=== PATIENT | male | born 1955 | race African-American/Black ===

== ENCOUNTER 2016-08-18 11:31 | Emergency (ER) | payer OTHER ==
[2016-08-18] MEDS ORDERED: amLODIPine TAB* 5 MG PO ONE (12:04)
[2016-08-18] MEDS ORDERED: Meclizine TAB* 12.5 MG PO ONE (12:04)
[2016-08-18] MEDS ORDERED: NS 0.9% 1000 ML* 1,000 ML IV ONE (12:05)
[2016-08-18 12:14] LABS: Hematocrit 49 % (42-52); Hemoglobin 16.2 g/dl (14.0-18.0); Mean Corpuscular HGB Conc 33 g/dl (31-36); Mean Corpuscular Hemoglobin 30 pg (27-31); Mean Corpuscular Volume 91 fL (80-94); Mean Platelet Volume 8 um3 (7.4-10.4); Red Blood Count 5.41 10^6/ul (4.0-5.4); Red Cell Distribution Width 15 % (10.5-15); White Blood Count 7.4 10^3/ul (3.5-10.8)
[2016-08-18 12:28] LABS: Albumin 4.2 g/dL (3.2-5.2); BUN/Creatinine Ratio 13.6 (8-20); Calcium 9.5 mg/dL (8.6-10.3); EGFR African American 123.8 (>60); EGFR Non-African American 96.2 (>60); Magnesium 2.2 mg/dL (1.9-2.7); Potassium 3.7 mmol/L (3.5-5.0); Total Bilirubin 1.7 mg/dL (0.2-1.0); Total Protein 7.2 g/dL (6.4-8.9)
[2016-08-18 12:29] LABS: Troponin I 0.01 ng/mL (<0.04)
[2016-08-18] MEDS ORDERED: Morphine INJ* 4 MG/ML 1 ML CARPUJECT IV ONE (12:29)
--- NOTE | 2016-08-18 12:30 | RAD ---
HISTORY: Headache, hypertension COMPARISONS: July 11, 2016 TECHNIQUE: Multiple contiguous axial CT scans were obtained of the head without intravenous contrast. FINDINGS: HEMORRHAGE/INFARCT: There is no hemorrhage or acute infarct. MASSES/SHIFT: There is no mass or shift. EXTRA-AXIAL SPACES: There are no extra-axial fluid collections. SULCI AND VENTRICLES: The sulci and ventricles are normal in size and position for the patient's stated age. CEREBRUM: There are no focal parenchymal abnormalities. BRAINSTEM: There are no focal parenchymal abnormalities. CEREBELLUM: There are no focal parenchymal abnormalities. VESSELS: The vertebrobasilar system is tortuous. PARANASAL SINUSES: The paranasal sinuses are clear. ORBITS: The orbits are unremarkable. BONES AND SOFT TISSUE: No bone or soft tissue abnormalities are noted. OTHER: None IMPRESSION: NO ACUTE INTRACRANIAL PATHOLOGY.
[2016-08-18] MEDS ORDERED: Metoclopramide IV* 5 MG/ML 2 ML VIAL IV ONE (12:31)
--- NOTE | 2016-08-18 12:38 | ED ---
Blu Wiggins Karl, scribed for Caro Ni MD on 08/18/16 at 1154 . Dizziness - HPI Summary HPI Summary: Pt is a 61 y/o male the presents to the ED c/o dizziness that began yesterday. Pt reported that he suddenly became dizzy yesterday and has experienced nausea and vomiting with his dizziness as well. Pt stated that lying down aggravates his symptoms and sitting up alleviates them slightly. Pt reports that he woke up yesterday and vomited. Pt has vomited 3 times since with the most recent episode being this morning between 09:00 and 10:00. Pt stated that it took him 5 min to get out of bed this morning because he was so dizzy and described his dizziness as the room spinning and it is worsened when he is lying down. No change when closes eyes. Pt also reported a VEE located in the frontal area of his head. No vision changes. No fever, chills, rash. Pt stated that he has not been eating or drinking very well and that he drank a significant amount of alcohol on 2 days ago. Pt is on medication for HTN but he did not take his medication today as he can't find it since recent move. Pt is not on any anticoagulants and denied a hx of [place] or stroke. Pt is prescribed oxycodone for pain but has not taken his medication recently since his move. Pt denies CP, SOB, ear ache, sinus pain, abd pain. Pt with a h/o vertigo. Hx: HTN, multiple back surgeries No h/o CAD, CVA. - History Of Current Complaint Chief Complaint: EDDizziness Stated Complaint: DIZZINESS Time Seen by Provider: 08/18/16 11:49 Hx Obtained From: Patient Onset/Duration: Suddenly Timing: Days - 1 Severity Initially: Mild Severity Currently: Mild Character: Room Spinning Aggravating Factor(s): Other - lying down Alleviating Factor(s): Other - sitting up Associated Signs And Symptoms: Positive: Nausea, Vomiting, Change In Medication. Negative: Chest Pain, SOB - Risk Factors Cardiac Risk Factors: Negative CVA Risk Factor: Negative - Allergies/Home Medications Allergies/Adverse Reactions: Allergies Allergy/AdvReac Type Severity Reaction Status Date / Time No Known Allergies Allergy Verified 06/02/16 18:20 PMH/Surg Hx/FS Hx/Imm Hx Endocrine/Hematology History: Denies: Hx Anticoagulant Therapy, Hx Diabetes, Hx Anemia, Hx Unexplained Bleeding Cardiovascular History: Reports: Hx Angina, Hx Hypertension - ON MEDS Denies: Hx Aneurysm, Hx Angioplasty, Hx Auto Implanted Cardiovert Defib, Hx Cardiac Arrest, Hx Cardiomegaly, Hx Congenital Heart Disease, Hx Congestive Heart Failure, Hx Coronary Artery Disease, Hx Deep Vein Thrombosis, Hx Myocardial Infarction, Hx Pacemaker/ICD, Hx Peripheral Vascular Disease, Hx Rheumatic Fever, Hx Syncope, Hx Valvular Heart Disease, Other Cardiovascular Problems/Disorders History: Denies: Hx Renal Disease Musculoskeletal History: Reports: Hx Back Problems - back surgeries x2 Denies: Hx Arthritis, Hx Bursitis, Hx Congenital Bone Abnormalities, Hx Fibromyalgia, Hx Gout, Hx Orthopedic Injury, Hx Osteoporosis, Hx Scoliosis, Hx Tendonitis, Other Musculoskeletal History Sensory History: Reports: Hx Contacts or Glasses - glasses Denies: Hx Cataracts, Hx Eye Injury, Hx Eye Prosthesis, Hx Glaucoma, Hx Legally Blind, Hx Macular Degeneration, Hx Vision Problem, Hx Deafness, Hx Hearing Aid, Other Sensory Impairments Opthamlomology History: Reports: Hx Contacts or Glasses - glasses Denies: Hx Cataracts, Hx Eye Injury, Hx Eye Prosthesis, Hx Glaucoma, Hx Legally Blind, Hx Macular Degeneration, Hx Vision Problem, Other Sensory Impairments Neurological History: Reports: Hx Headaches, Other Neuro Impairments/Disorders - PAIN CLINIC PATIENT Denies: Hx Dementia, Hx Developmental Delay, Hx Migraine, Hx Nerve Disease, Hx Seizures, Hx Spinal Cord Injury, Hx Transient Ischemic Attacks (TIA) Psychiatric History: Denies: Hx Panic Disorder - Surgical History Surgery Procedure, Year, and Place: 2006, 2014 BACK SURGERY; Hx Anesthesia Reactions: No - Immunization History Date of Tetanus Vaccine: Unk Date of Influenza Vaccine: 2016 Infectious Disease History: No Infectious Disease History: Denies: Traveled Outside the [place] in Last 30 Days - Family History Known Family History: Positive: Cardiac Disease - [place] , Hypertension, Diabetes - Social History Occupation: Employed Full-time - [employer] Alcohol Use: Occasionally Hx Substance Use: No Substance Use Type: Reports: None Hx Tobacco Use: Yes Smoking Status (MU): Former Smoker Type: Cigarettes Have You Smoked in the Last Year: No Review of Systems Constitutional: Negative Negative: Fever, Chills Eyes: Negative ENT: Negative Negative: Sore Throat, Ear Ache, Other - sinus pain Cardiovascular: Negative Negative: Chest Pain Respiratory: Negative Negative: Shortness Of Breath, Cough Positive: Vomiting, Nausea. Negative: Abdominal Pain Genitourinary: Negative Musculoskeletal: Negative Negative: Arthralgia Skin: Negative Negative: Rash Neurological: Other - dizziness Positive: Headache. Negative: Weakness, Numbness, Slurred Speech Psychological: Normal Negative: Anxious, Depressed All Other Systems Reviewed And Are Negative: Yes Physical Exam Triage Information Reviewed: Yes Vital Signs On Initial Exam: Initial Vitals Temp Pulse Resp BP Pulse Ox 98.4 F 72 18 172/112 98 08/18/16 11:40 08/18/16 11:40 08/18/16 11:40 08/18/16 11:40 08/18/16 11:40 Vital Signs Reviewed: Yes Appearance: Positive: Well-Appearing, Well-Nourished, Pain Distress - mild discomfort Skin: Positive: Warm, Skin Color Reflects Adequate Perfusion, Dry Head/Face: Positive: Normal Head/Face Inspection Eyes: Positive: Normal, EOMI, AIDA, Conjunctiva Clear, Other: - AIDA, EOM intact and full Pt with horizontal nytagmus extinguishing 4-5 beats to left. Negative: Conjunctiva Inflammed, Discharge ENT: Positive: Normal ENT inspection, TMs normal. Negative: Pharynx normal, Nasal congestion, Nasal drainage, TM dull, TM red Neck: Positive: Supple, Nontender, No Lymphadenopathy Respiratory/Lung Sounds: Positive: Clear to Auscultation, Breath Sounds Present. Negative: Wheezes Cardiovascular: Positive: Normal, RRR. Negative: Murmur Abdomen Description: Positive: Nontender, No Organomegaly, Soft Bowel Sounds: Positive: Present Musculoskeletal: Positive: Normal, Strength/ROM Intact Neurological: Positive: Normal, Sensory/Motor Intact, Alert, Oriented to Person Place, Time, CN Intact II-III, Normal Gait, Heel to Toe, Finger to Nose. Negative: Ataxic Gait Psychiatric: Positive: Normal AVPU Assessment: Alert - [place] Coma Scale Best Eye Response: 4 - Spontaneous Best Motor Response: 6 - Obeys Commands Best Verbal Response: 5 - Oriented Diagnostics - Vital Signs Vital Signs Temp Pulse Resp BP Pulse Ox 08/18/16 11:40 98.4 F 72 18 172/112 98 - Laboratory Lab Results: Lab Results 08/18/16 08/18/16 Range/Units 12:00 12:00 WBC 7.4 (3.5-10.8) 10^3/ul RBC 5.41 H (4.0-5.4) 10^6/ul Hgb 16.2 (14.0-18.0) g/dl Hct 49 (42-52) % MCV 91 (80-94) fL MCH 30 (27-31) pg MCHC 33 (31-36) g/dl RDW 15 (10.5-15) % Plt Count 211 (150-450) 10^3/ul MPV 8 (7.4-10.4) um3 Neut % (Auto) 74.9 (38-83) % Lymph % (Auto) 15.7 L (25-47) % [place] % (Auto) 8.4 (1-9) % Eos % (Auto) 0.4 (0-6) % Baso % (Auto) 0.6 (0-2) % Absolute Neuts (auto) 5.6 (1.5-7.7) 10^3/ul Absolute Lymphs (auto) 1.2 (1.0-4.8) 10^3/ul Absolute Monos (auto) 0.6 (0-0.8) 10^3/ul Absolute Eos (auto) 0 (0-0.6) 10^3/ul Absolute Basos (auto) 0 (0-0.2) 10^3/ul Absolute Nucleated RBC 0 10^3/ul Nucleated RBC % 0.1 Sodium 134 (133-145) mmol/L Potassium 3.7 (3.5-5.0) mmol/L Chloride 101 (101-111) mmol/L Carbon Dioxide 27 (22-32) mmol/L Anion Gap 6 (2-11) mmol/L BUN 11 (6-24) mg/dL Creatinine 0.81 (0.67-1.17) mg/dL Est GFR ( Amer) 123.8 (>60) Est GFR (Non-Af Amer) 96.2 (>60) BUN/Creatinine Ratio 13.6 (8-20) Glucose 102 H (70-100) mg/dL Calcium 9.5 (8.6-10.3) mg/dL Magnesium 2.2 (1.9-2.7) mg/dL Total Bilirubin 1.70 H (0.2-1.0) mg/dL AST 26 (13-39) U/L ALT 27 (7-52) U/L Alkaline Phosphatase 49 (34-104) U/L Total Creatine Kinase 234 H (10-223) U/L Troponin I 0.01 (<0.04) ng/mL Total Protein 7.2 (6.4-8.9) g/dL Albumin 4.2 (3.2-5.2) g/dL Globulin 3.0 (2-4) g/dL Albumin/Globulin Ratio 1.4 (1-3) TSH Pending Result Diagrams: 08/18/16 12:00 08/18/16 12:00 Lab Statement: Any lab studies that have been ordered have been reviewed, and results considered in the medical decision making process. - CT CT Brain CT Interpretation Completed By: Radiologist - IMPRESSION: NO ACUTE INTRACRANIAL PATHOLOGY. <Electronically signed by Blake Chau MD in [place]> 08/18/16 1227 - EKG 11:43 EKG Interpretation: NSR at 66 bpm, No acute ST changes Re-Evaluation - Re-Evaluation First Eval Re-Evaluation Time: 12:50 Change: Improved Comment: Pt states feels slight improvement. No further nausea. Pt with less photophobia. BP remains elevated - pt give Morphine - will continue to monitor. May give labetolol if continues to be elevated Second Eval Re-Evaluation Time: 13:43 Change: Improved - Pt states feels better - no nausea, no VEE, no dizziness. BP improved 152/[address] and labs with pt. Will gove po and ambulate. Will give Rx for Norvasc and Meclzine. Pt to contact PCP for other meds prescriptions and Dr. Guadarrama for pain meds. Pt states agreement and understanding of plan Dizzy Course/Dx - Course Assessment/Plan: Pt presents with complaints of headache, dizziness, nausea after not taking med x 2 days. Pt denies fevers, chills. Pt with nystagmus on exam. Pt with mild htn. Will give home BP meds, meclzine, IVF. Will check labs , CT head and reassess. May give morphine as pt may have component of narcotic withdrawal. - Diagnoses Provider Diagnoses: Vertigo, Hypertension, Non compliance w medication regimen Discharge - Discharge Plan Condition: Improved Disposition: HOME Patient Education Materials: Hypertension (ED), Vertigo (ED) Additional Instructions: - It is VERY important you take your medications as previously prescribed. A prescription for Norvasc and Meclizine has been sent to your pharmacy - Stay well hydrated -avoid excess caffeine and alcohol - Eat regular, healthy meals - eat a low salt diet - Slowly change positions - lying to sitting, sitting to standing - Contact your primary doctor and your pain management doctors for your other prescriptions. The documentation as recorded by the Blu mack Karl accurately reflects the service I personally performed and the decisions made by me, Caro Ni MD.
[2016-08-18] MEDS ORDERED: NS 0.9% 1000 ML* 2,000 ML IV ONE (12:49)
[2016-08-18 13:07] LABS: TSH (Thyroid Stimulating Horm) 0.4 mcIU/mL (0.34-5.60)
[2016-08-18 13:19] VITALS: BP 159/96
[2016-08-18 14:18] LABS: Urine Bacteria Absent (Absent); Urine Bilirubin Negative (Negative); Urine Glucose Negative (Negative); Urine Nitrite Negative (Negative)
== END 2016-08-18 14:23 | disposition home or self-care (01) ==
LOC: ED 11:31
DX: R42 Dizziness and giddiness (principal); I10 Essential (primary) hypertension; Z91.19 Patient's noncompliance with other medical treatment and regimen; Z87.891 Personal history of nicotine dependence
CPT/HCPCS: 36415; 70450; 80053; 81003; 81015; 82550; 83735; 84443; 84484; 85025; 93005; 96361; 96365; 96366; 96374; 99283; A9270-GY; J2270; J2765

== ENCOUNTER 2016-09-29 07:20 | Emergency (ER) | payer OTHER ==
--- NOTE | 2016-09-29 08:17 | ED ---
Lower Extremity - HPI Summary HPI Summary: Pt here w/ acute Lt knee pain and swelling. Started last night - no preceding factors (ie. no trauma/injury, no kneeling, no twisting, no prolonged sitting, standing, etc). Worse w/ flexion - better w/ rest. Area over medial knee has reduced sensation and this continues down into legs. Denies calf pain, swelling , fever, foot swelling, chest pain, SOB. No previous h/o Lt knee injury. Admits to "water" on his Rt knee in the past. He reports a history of back pain and has radicular sx into this Lt leg. He's scheduled to have an EMG in about 1 month. No exacerbation of his back sx. Occasionally takes ibuprofen for his aches and pains but nothing routinely. Ambulating well with a cane at this time but does not use steps as they are too difficulty to navigate. - History of Current Complaint Chief Complaint: EDExtremityLower Stated Complaint: LT KNEE PAIN/NUMB Time Seen by Provider: 09/29/16 07:46 Hx Obtained From: Patient Pain Intensity: 7 - Allergies/Home Medications Allergies/Adverse Reactions: Allergies Allergy/AdvReac Type Severity Reaction Status Date / Time No Known Allergies Allergy Verified 09/29/16 07:22 PMH/Surg Hx/FS Hx/Imm Hx Previously Healthy: Yes Endocrine/Hematology History: Denies: Hx Anticoagulant Therapy, Hx Diabetes, Hx Anemia, Hx Unexplained Bleeding Cardiovascular History: Reports: Hx Angina, Hx Hypertension - ON MEDS Denies: Hx Aneurysm, Hx Angioplasty, Hx Auto Implanted Cardiovert Defib, Hx Cardiac Arrest, Hx Cardiomegaly, Hx Congenital Heart Disease, Hx Congestive Heart Failure, Hx Coronary Artery Disease, Hx Deep Vein Thrombosis, Hx Myocardial Infarction, Hx Pacemaker/ICD, Hx Peripheral Vascular Disease, Hx Rheumatic Fever, Hx Syncope, Hx Valvular Heart Disease, Other Cardiovascular Problems/Disorders History: Denies: Hx Renal Disease Musculoskeletal History: Reports: Hx Back Problems - back surgeries x2 Denies: Hx Arthritis, Hx Bursitis, Hx Congenital Bone Abnormalities, Hx Fibromyalgia, Hx Gout, Hx Orthopedic Injury, Hx Osteoporosis, Hx Scoliosis, Hx Tendonitis, Other Musculoskeletal History Sensory History: Reports: Hx Contacts or Glasses - glasses Denies: Hx Cataracts, Hx Eye Injury, Hx Eye Prosthesis, Hx Glaucoma, Hx Legally Blind, Hx Macular Degeneration, Hx Vision Problem, Hx Deafness, Hx Hearing Aid, Other Sensory Impairments Opthamlomology History: Reports: Hx Contacts or Glasses - glasses Denies: Hx Cataracts, Hx Eye Injury, Hx Eye Prosthesis, Hx Glaucoma, Hx Legally Blind, Hx Macular Degeneration, Hx Vision Problem, Other Sensory Impairments Neurological History: Reports: Hx Headaches, Other Neuro Impairments/Disorders - PAIN CLINIC PATIENT Denies: Hx Dementia, Hx Developmental Delay, Hx Migraine, Hx Nerve Disease, Hx Seizures, Hx Spinal Cord Injury, Hx Transient Ischemic Attacks (TIA) Psychiatric History: Denies: Hx Panic Disorder - Surgical History Surgery Procedure, Year, and Place: 2006, 2014 BACK SURGERY; Hx Anesthesia Reactions: No - Immunization History Date of Tetanus Vaccine: Unk Date of Influenza Vaccine: 2015 Infectious Disease History: No Infectious Disease History: Denies: Traveled Outside the [place] in Last 30 Days - Family History Known Family History: Positive: Cardiac Disease - [place] , Hypertension, Diabetes, Other - CVA - Social History Occupation: Employed Full-time - [employer]: With Family Alcohol Use: Rare Hx Substance Use: No Substance Use Type: Reports: None Hx Tobacco Use: Yes Smoking Status (MU): Former Smoker Type: Cigarettes Have You Smoked in the Last Year: No Review of Systems Negative: Fever, Chills, Fatigue Negative: Chest Pain Negative: Shortness Of Breath Gastrointestinal: Negative Positive: no symptoms reported Musculoskeletal: Other - see HPI Negative: Rash, Bruising Neurological: Other - see HPI Psychological: Normal All Other Systems Reviewed And Are Negative: Yes Physical Exam Triage Information Reviewed: Yes Vital Signs On Initial Exam: Initial Vitals Temp Pulse Resp BP Pulse Ox 99.2 F 76 16 171/106 98 09/29/16 07:23 09/29/16 07:23 09/29/16 07:23 09/29/16 07:23 09/29/16 07:23 Vital Signs Reviewed: Yes Appearance: Positive: Well-Appearing, No Pain Distress, Well-Nourished Skin: Positive: Warm, Dry - no erythema nor signs of wounds over knee; old scar over B/L knees Head/Face: Positive: Normal Head/Face Inspection Eyes: Positive: Normal, EOMI ENT: Positive: Hearing grossly normal, Pharynx normal Respiratory/Lung Sounds: Positive: Clear to Auscultation, Breath Sounds Present Cardiovascular: Positive: Normal, RRR, Pulses are Symmetrical in both Upper and Lower Extremities - DP's +2, cap refill < 2 secs; varicose veins B/L. Negative : Leg Edema Left, Leg Edema Right Abdomen Description: Positive: Nontender, Soft Bowel Sounds: Positive: Present Musculoskeletal: Positive: Normal, Strength/ROM Intact - gross swelling/ bogginess of LT anterior knee (patella floating w/ pocket of fluid along medial aspect - NTTP) - popliteal fossa NTTP w/ mild edema Neurological: Positive: Alert, Oriented to Person Place, Time, CN Intact II-III , Other - pt reports reduced sensation to gross touch over his LLL - motor intact and equal to Rt LE Psychiatric: Positive: Normal - [place] Coma Scale Coma Scale Total: 15 Diagnostics - Vital Signs Vital Signs Temp Pulse Resp BP Pulse Ox 09/29/16 07:23 99.2 F 76 16 171/106 98 - Laboratory Lab Statement: Any lab studies that have been ordered have been reviewed, and results considered in the medical decision making process. Lower Extremity Course/Dx - Course Course Of Treatment: Pt's knee swelling appears to be a benign arthritic inflammatory response. He was also found to have superficial phlebitis. No fx, no DVT identified. Pt's knee does not appear to be septic. He will start ibuprofen daily for 2 weeks, wear an RISSA wrap and f/u w/ PCP. Suggested he consult with an ortho if sx persist. Pt agrees w/ plan. - Diagnoses Provider Diagnoses: Arthritis of left knee, Superficial phlebitis and thrombophlebitis of left lower extremity Discharge - Discharge Plan Condition: Stable Disposition: HOME Patient Education Materials: Osteoarthritis (ED), Superficial Thrombophlebitis (ED) Referrals: Garrett Rios MD [Primary Care Provider] - Additional Instructions: KNEE: *Rest, ice, compress with RISSA wrap and elevate knee Take ibuprofen with food for 2 weeks for knee swelling as well as superficial thrombophlebitis You may apply heat to your lower extremity Follow-up with PCP this week to re-evaluate *If you develop worsening of pain, swelling, redness, streaking, fever, chills, chest pain, shortness of breath, return to ED
[2016-09-29] MEDS ORDERED: Ibuprofen TAB* 800 MG PO ONE (08:30)
--- NOTE | 2016-09-29 08:39 | RAD ---
Indication: LEFT knee pain and swelling since last night. No reported injury. Comparison: None. Technique: AP, tunnel, lateral, sunrise views LEFT knee. Report: Negative for fracture or malalignment. Mild medial and patellofemoral joint osteophytosis. No significant joint space narrowing. Trace suprapatellar joint effusion. Mild anterior soft tissue swelling. IMPRESSION: Kellgren and Christiano grade 1 osteoarthritis.
--- NOTE | 2016-09-29 09:25 | RAD ---
HISTORY: Left knee swelling, pain COMPARISONS: None relevant TECHNIQUE: Multiple transverse and longitudinal ultrasound images were obtained of the left lower extremity from the level of the common femoral vein inferiorly through to the infrapopliteal veins using grayscale, color Doppler, and spectral Doppler imaging with and without compression and with augmentation. Comparison images were obtained of the contralateral common femoral vein. FINDINGS: VEINS: The greater saphenous vein is visualized. There is nonocclusive thrombus within the small saphenous vein, without extension into the deep venous system. The remainder of the venous system of the left lower extremity is compressible throughout its course, with normal flow on color Doppler imaging and normal response to augmentation on spectral Doppler imaging. SOFT TISSUES: Unremarkable. OTHER FINDINGS: None. IMPRESSION: SUPERFICIAL THROMBOPHLEBITIS, WITHOUT DEEP VEIN THROMBOSIS OF THE LEFT LOWER EXTREMITY
[2016-09-29 09:54] VITALS: BP 164/94
== END 2016-09-29 09:52 | disposition home or self-care (01) ==
LOC: ED 07:20
DX: I80.02 Phlebitis and thrombophlebitis of superficial vessels of left lower extremity (principal); M13.862 Other specified arthritis, left knee; M25.562 Pain in left knee; M25.462 Effusion, left knee; Z87.891 Personal history of nicotine dependence
CPT/HCPCS: 99282; A9270-GY

== ENCOUNTER → 2016-11-14 06:30 | Emergency (ER) | payer OTHER ==
[~2016-11-14 06:30] MED LIST: HYDROmorphone* 1 MG/ML 1 ML SYR IV ONE; Ketorolac INJ* 30 MG/ML 1 ML VIAL IV ONE; LORazepam INJ* 2 MG/ML 1 ML VIAL IV PUSH ONE; traMADol TAB* 50 MG PO ONE
--- NOTE | 2016-11-14 07:50 | ED ---
Back Pain - HPI Summary HPI Summary: Pt is a 61 yo male with a PMH of back pain presents by EMS. Pt reports has had surgery x 2 and is being prepared for another surgery in [place]. Pt states was seen by the surgeon in [place] 2 days. Pt states has increased pain in lower back. States usual pain location, but more intense. Pt states ran out of his Tramadol 2 or 3 days ago. Pt states did not tell her surgeon he was out of medicaiton. Pt has not taken any OTC medications. Pt denies new muscle weakness , paresthesia. no bowel/bladder changes. No falls. pt states sx worse with standing. States works at [employer] and standing all day exacerbates pain. Pt was scheduled to work today and is requesting a note. no other concerns - History of Current Complaint Chief Complaint: EDBackInjuryPain Stated Complaint: BACK PAIN Time Seen by Provider: 11/14/16 07:30 Hx Obtained From: Patient Onset/Duration: Gradual Onset, Lasting Weeks Onset/Duration: Started Weeks Ago Timing: Constant Back Pain Location: Is Discrete @ - lower back L>R Pain Intensity: 10 Pain Scale Used: 0-10 Numeric - 9 Character: Stiffness Aggravating Symptom(s): Movement, Lifting, Walking Alleviating Symptom(s): Nothing Associated Signs And Symptoms: Positive: Negative. Negative: Weakness, Numbness , Tingling, Abdominal Pain - Allergies/Home Medications Allergies/Adverse Reactions: Allergies Allergy/AdvReac Type Severity Reaction Status Date / Time No Known Allergies Allergy Verified 11/04/16 15:13 PMH/Surg Hx/FS Hx/Imm Hx Previously Healthy: Yes Endocrine/Hematology History: Denies: Hx Anticoagulant Therapy, Hx Diabetes, Hx Anemia, Hx Unexplained Bleeding Cardiovascular History: Reports: Hx Angina, Hx Hypertension - ON MEDS Denies: Hx Aneurysm, Hx Angioplasty, Hx Auto Implanted Cardiovert Defib, Hx Cardiac Arrest, Hx Cardiomegaly, Hx Congenital Heart Disease, Hx Congestive Heart Failure, Hx Coronary Artery Disease, Hx Deep Vein Thrombosis, Hx Myocardial Infarction, Hx Pacemaker/ICD, Hx Peripheral Vascular Disease, Hx Rheumatic Fever, Hx Syncope, Hx Valvular Heart Disease, Other Cardiovascular Problems/Disorders History: Denies: Hx Renal Disease Musculoskeletal History: Reports: Hx Back Problems - back surgeries x2 Denies: Hx Arthritis, Hx Bursitis, Hx Congenital Bone Abnormalities, Hx Fibromyalgia, Hx Gout, Hx Orthopedic Injury, Hx Osteoporosis, Hx Scoliosis, Hx Tendonitis, Other Musculoskeletal History Sensory History: Reports: Hx Contacts or Glasses - glasses Denies: Hx Cataracts, Hx Eye Injury, Hx Eye Prosthesis, Hx Glaucoma, Hx Legally Blind, Hx Macular Degeneration, Hx Vision Problem, Hx Deafness, Hx Hearing Aid, Other Sensory Impairments Opthamlomology History: Reports: Hx Contacts or Glasses - glasses Denies: Hx Cataracts, Hx Eye Injury, Hx Eye Prosthesis, Hx Glaucoma, Hx Legally Blind, Hx Macular Degeneration, Hx Vision Problem, Other Sensory Impairments Neurological History: Reports: Hx Headaches, Other Neuro Impairments/Disorders - PAIN CLINIC PATIENT Denies: Hx Dementia, Hx Developmental Delay, Hx Migraine, Hx Nerve Disease, Hx Seizures, Hx Spinal Cord Injury, Hx Transient Ischemic Attacks (TIA) Psychiatric History: Denies: Hx Panic Disorder - Surgical History Surgery Procedure, Year, and Place: 2006, 2014 BACK SURGERY; Hx Anesthesia Reactions: No - Immunization History Date of Tetanus Vaccine: Unk Date of Influenza Vaccine: 2015 Infectious Disease History: No Infectious Disease History: Denies: Traveled Outside the US in Last 30 Days - Family History Known Family History: Positive: None - reviewed & noncontributory, Cardiac Disease - [place] , Hypertension, Diabetes, Other - CVA - Social History Alcohol Use: Occasionally Hx Substance Use: No Substance Use Type: Reports: None Hx Tobacco Use: Yes Smoking Status (MU): Former Smoker Type: Cigarettes Have You Smoked in the Last Year: No Review of Systems Constitutional: Negative Eyes: Negative ENT: Negative Cardiovascular: Negative Respiratory: Negative Gastrointestinal: Negative Genitourinary: Negative Negative: incontinence Musculoskeletal: Other - low back pain Skin: Negative Neurological: Negative Negative: Weakness, Numbness Psychological: Normal All Other Systems Reviewed And Are Negative: Yes Physical Exam Triage Information Reviewed: Yes Vital Signs On Initial Exam: Initial Vitals Temp Pulse Resp BP Pulse Ox 98.2 F 61 18 179/107 99 11/14/16 06:33 11/14/16 06:33 11/14/16 06:33 11/14/16 06:33 11/14/16 06:33 Vital Signs Reviewed: Yes Appearance: Positive: Well-Appearing, Pain Distress - mild discomfort Skin: Positive: Warm, Skin Color Reflects Adequate Perfusion, Dry Head/Face: Positive: Normal Head/Face Inspection Eyes: Positive: Normal, EOMI, AIDA ENT: Positive: Normal ENT inspection, Nasal congestion, TMs normal Neck: Positive: Supple, Nontender, No Lymphadenopathy Respiratory/Lung Sounds: Positive: Clear to Auscultation, Breath Sounds Present Cardiovascular: Positive: Normal, RRR, Other - 2+ femoral b/l. Negative: Murmur Abdomen Description: Positive: Nontender, No Organomegaly Bowel Sounds: Positive: Present Musculoskeletal: Positive: Strength/ROM Intact, Other - No pain c/t/l/s spinous process mild TTP lumbar area, paraspinal on left + SLE b/l with increased discomfort in low back on left + flex/ext knee, ankle + great toe extension Neurological: Positive: Normal, Sensory/Motor Intact, Alert, Oriented to Person Place, Time, Other - + gross sensation throughout b/l equal Psychiatric: Positive: Normal AVPU Assessment: Alert - [place] Coma Scale Best Eye Response: 4 - Spontaneous Best Motor Response: 6 - Obeys Commands Best Verbal Response: 5 - Oriented Coma Scale Total: 15 Diagnostics - Vital Signs Vital Signs Temp Pulse Resp BP Pulse Ox 11/14/16 07:29 16 11/14/16 06:54 14 11/14/16 06:33 98.2 F 61 18 179/107 99 - Laboratory Lab Statement: Any lab studies that have been ordered have been reviewed, and results considered in the medical decision making process. Re-Evaluation - Re-Evaluation First Eval Change: Improved - Pt sounds asleep - states feels better - I reviewed Istop with pt - explained would not be giving any additional prescriptions. pt may take motrin/apap apply heat recommend notify surgeon in [place] of ED visit Back Pain Course/Dx - Course Course Of Treatment: Pt presents with exacerbation of chronic lumbar pain. No bowel/bladder changes. Pt is out of prescribed tramadol. Pt with increased pain with SLE b/l. Review of istop = pt received Tramadol 30 day supply on 10/30. Pt given Toradol and Ativan - will give oral Tramadol. Will continue to monitor - Diagnoses Provider Diagnoses: Back pain Discharge - Discharge Plan Condition: Improved Disposition: HOME Patient Education Materials: Chronic Back Pain (ED) Additional Instructions: - Stay well hydrated. Drink plenty of non-alcoholic, non-caffinated beverages - okay to alternate ibuprofen (advil, motrin) and tylenol every 3 hours for pain. Take with food. - Apply heat to your back - slow, gentle stretching exercises - Use your cane for support and walking - Call your doctor to schedule a follow-up appointment. Contact your doctor or return with questions or concerns
[2016-11-14 09:25] VITALS: BP 151/75
== END | disposition home or self-care (01) ==
LOC: ED 06:30
DX: M54.5 Low back pain (principal); M54.9 Dorsalgia, unspecified
CPT/HCPCS: 96374; 96375; 99283; A9270-GY; J1885; J2060

== ENCOUNTER 2016-12-22 06:30 | Emergency (ER) | payer SELFPAY ==
[2016-12-22] MEDS ORDERED: Ketorolac INJ* 60 MG/2 ML VIAL IM ONE (07:43)
[2016-12-22] MEDS ORDERED: traMADol TAB* 50 MG PO ONE (07:43)
[2016-12-22 08:08] VITALS: BP 176/98
--- NOTE | 2016-12-22 08:22 | ED ---
mar Wiggins Timothy, scribed for Sanju Clark MD on 12/22/16 at 0741 . Back Pain - HPI Summary HPI Summary: Brennan Soto Sr. is a 61 yo male presenting to [facility] with 9/10 chronic back pain, aggravated by standing. He has run out of tramadol at home. He states while the pain does not travel to his legs, sometimes his legs don't work. He also states he sometimes has difficulty controlling his urination. He states his back surgery for next week was cancelled due to a change in his insurance. He has self-medicated with 4 ibuprofen. He states he has had steroid injections in his back, which have not relieved his Sx. His MHx includes angina, HTN, siatic nerve pain, low back surgery 2007 and 2014, and tobacco use. His PCP is Dr. Rios, and he is a pain clinic Pt. - History of Current Complaint Chief Complaint: EDBackInjuryPain Stated Complaint: BACK PAIN Time Seen by Provider: 12/22/16 07:33 Hx Obtained From: Patient Onset/Duration: Gradual Onset, Lasting Weeks, Still Present Onset/Duration: Started Weeks Ago, Still Present Timing: Constant Back Pain Location: Is Discrete @ - lower back Severity Initially: Moderate Severity Currently: Moderate Pain Intensity: 9 Pain Scale Used: 0-10 Numeric Aggravating Symptom(s): Movement Alleviating Symptom(s): Rest - Allergies/Home Medications Allergies/Adverse Reactions: Allergies Allergy/AdvReac Type Severity Reaction Status Date / Time No Known Allergies Allergy Verified 11/04/16 15:13 PMH/Surg Hx/FS Hx/Imm Hx Endocrine/Hematology History: Denies: Hx Anticoagulant Therapy, Hx Diabetes, Hx Anemia, Hx Unexplained Bleeding Cardiovascular History: Reports: Hx Angina, Hx Hypertension - ON MEDS Denies: Hx Aneurysm, Hx Angioplasty, Hx Auto Implanted Cardiovert Defib, Hx Cardiac Arrest, Hx Cardiomegaly, Hx Congenital Heart Disease, Hx Congestive Heart Failure, Hx Coronary Artery Disease, Hx Deep Vein Thrombosis, Hx Myocardial Infarction, Hx Pacemaker/ICD, Hx Peripheral Vascular Disease, Hx Rheumatic Fever, Hx Syncope, Hx Valvular Heart Disease, Other Cardiovascular Problems/Disorders History: Denies: Hx Renal Disease Musculoskeletal History: Reports: Hx Back Problems - back surgeries x2 Denies: Hx Arthritis, Hx Bursitis, Hx Congenital Bone Abnormalities, Hx Fibromyalgia, Hx Gout, Hx Orthopedic Injury, Hx Osteoporosis, Hx Scoliosis, Hx Tendonitis, Other Musculoskeletal History Sensory History: Reports: Hx Contacts or Glasses - glasses Denies: Hx Cataracts, Hx Eye Injury, Hx Eye Prosthesis, Hx Glaucoma, Hx Legally Blind, Hx Macular Degeneration, Hx Vision Problem, Hx Deafness, Hx Hearing Aid, Other Sensory Impairments Opthamlomology History: Reports: Hx Contacts or Glasses - glasses Denies: Hx Cataracts, Hx Eye Injury, Hx Eye Prosthesis, Hx Glaucoma, Hx Legally Blind, Hx Macular Degeneration, Hx Vision Problem, Other Sensory Impairments Neurological History: Reports: Hx Headaches, Other Neuro Impairments/Disorders - PAIN CLINIC PATIENT Denies: Hx Dementia, Hx Developmental Delay, Hx Migraine, Hx Nerve Disease, Hx Seizures, Hx Spinal Cord Injury, Hx Transient Ischemic Attacks (TIA) Psychiatric History: Denies: Hx Panic Disorder - Surgical History Surgery Procedure, Year, and Place: 2006, 2014 BACK SURGERY; Hx Anesthesia Reactions: No - Immunization History Date of Tetanus Vaccine: Unk Date of Influenza Vaccine: 2015 Infectious Disease History: No Infectious Disease History: Denies: Traveled Outside the US in Last 30 Days - Family History Known Family History: Positive: Cardiac Disease - [place] , Hypertension, Diabetes, Other - CVA - Social History Alcohol Use: Occasionally Hx Substance Use: No Substance Use Type: Reports: None Hx Tobacco Use: Yes Smoking Status (MU): Former Smoker Type: Cigarettes Have You Smoked in the Last Year: No Review of Systems Constitutional: Negative Eyes: Negative ENT: Negative Cardiovascular: Negative Respiratory: Negative Gastrointestinal: Negative Genitourinary: Other - difficulty controlling urination Positive: Other - low back pain Skin: Negative Neurological: Negative Psychological: Normal All Other Systems Reviewed And Are Negative: Yes Physical Exam - Summary Physical Exam Summary: The patient is well-nourished in mild pain distress. The skin is warm and dry and skin color reflects adequate perfusion. HEENT: The head is normocephalic and atraumatic. The pupils are equal and reactive. The conjunctivae are clear and without drainage. Nares are patent and without drainage. Mouth reveals moist mucous membranes and the throat is without erythema and exudate. The external ears are intact. The ear canals are patent and without drainage. The tympanic membranes are intact. Neck is supple with full range of motion and non-tender. There are no carotid bruits. There is no neck vein distension. Respiratory: Chest is non-tender. Lungs are clear to auscultation and breath sounds are symmetrical and equal. Cardiovascular: Hear is regular rate and rhythm. There is no murmur or rub auscultated. There is no peripheral edema and pulses are symmetrical and equal. Abdomen: The abdomen is soft and non-tender. There are normal bowel sounds heard in all four quadrants and there is no organomegaly palpated. Musculoskeletal: There is back pain noted. There is reproducible pain between L1 -L4 on spine. Extremities are non-tender with full range of motion. There is good capillary refill. There is no peripheral edema or calf tenderness elicited. There is no motor weakness noted, and he is able to lift both legs. Neurological: Patient is alert and oriented to person, place and time. The patient has symmetrical motor strength in all four extremities. Cranial nerves are grossly intact. Deep tendon reflexes are symmetrical and equal in all four extremities. Psychiatric: The patient has an appropriate affect and does not exhibit any anxiety or depression. Triage Information Reviewed: Yes Vital Signs On Initial Exam: Initial Vitals Temp Pulse Resp BP Pulse Ox 97.8 F 74 18 174/104 97 12/22/16 06:39 12/22/16 06:39 12/22/16 06:39 12/22/16 06:39 12/22/16 06:39 Vital Signs Reviewed: Yes Diagnostics - Vital Signs Vital Signs Temp Pulse Resp BP Pulse Ox 12/22/16 06:46 72 18 170/87 96 12/22/16 06:45 77 97 12/22/16 06:39 97.8 F 74 18 174/104 97 - Laboratory Lab Statement: Any lab studies that have been ordered have been reviewed, and results considered in the medical decision making process. Back Pain Course/Dx - Course Assessment/Plan: Mery Soto Sr. is a 61 yo male presenting to [facility] with 9/ 10 chronic back pain, out of his prescribed tramadol. In the ED he received tramadol and toradol to treat his Sx. His medication list was reviewed this visit. ISTOP was consulted this visit, he received a 30 day prescription for tramadol 11/25/16. He lucas be presribed a 5 day supply of tramadol. After clinical examination, he will be discharged with chronic back pain with appropriate instructions. - Diagnoses Differential Diagnosis/HQI/PQRI: Positive: Other - chronic back pain, Rx refill Provider Diagnoses: Chronic back pain, Prescription refill Discharge - Discharge Plan Condition: Stable Disposition: HOME Prescriptions: traMADol TAB* [Ultram*] 50 mg PO Q6HR PRN #20 tab MDD 4 PRN Reason: pain Patient Education Materials: Chronic Back Pain (ED) Forms: *Work Release Referrals: Garrett Rios MD [Primary Care Provider] - 2 Days Additional Instructions: Please follow up with your primary care physician and the pain clinic regarding your visit to the emergency department today. Return to the emergency department with any new or recurring symptoms. The documentation as recorded by the mar mack Timothy accurately reflects the service I personally performed and the decisions made by me, Sanju Clark MD.
== END 2016-12-22 08:07 | disposition home or self-care (01) ==
LOC: ED 06:30
DX: M54.9 Dorsalgia, unspecified (principal); G89.29 Other chronic pain; I10 Essential (primary) hypertension; I20.9 Angina pectoris, unspecified; Z87.891 Personal history of nicotine dependence
CPT/HCPCS: 96372; 99282; A9270-GY; J1885

== ENCOUNTER 2017-01-17 12:30 | Emergency (ER) | payer OTHER ==
--- NOTE | 2017-01-17 12:46 | ED ---
Back Pain - HPI Summary HPI Summary: 61 male presents with complaints of low back pain that has been ongoing for years. Patient has chronic back pain and is scheduled for surgery on 02/07/17. Patient states he has been taking ibuprofen and tramadol without relief. Patient states the pain is excruciating and nothing makes it better. He is able to bear weight and walk. Admits to numbness/tingling and some weakness intermittently on LE that has been ongoing for the past couple of years. No new symptoms. Denies bladder/bowel incontinence and saddle anesthesia. He has also tried heat and ice without relief. Tried to go into PCP yesterday for a toradol injection however was unable. Denies fever/chills and urinary symptoms. - History of Current Complaint Chief Complaint: EDBackInjuryPain Stated Complaint: BACK PAIN Time Seen by Provider: 01/17/17 12:42 Hx Obtained From: Patient Onset/Duration: Gradual Onset, Lasting Weeks, Still Present - chronic Onset/Duration: Started Weeks Ago - years, Traumatic Timing: Constant Back Pain Location: Is Discrete @ - lower lumbar back Severity Initially: Severe Severity Currently: Severe Pain Intensity: 9 Pain Scale Used: 0-10 Numeric Character: Sharp, Aching, Throbbing Aggravating Symptom(s): Movement Alleviating Symptom(s): Nothing Associated Signs And Symptoms: Positive: Weakness, Numbness, Tingling. Negative : Swelling, Redness, Bruising, Abdominal Pain, Flank Pain, Bladder Incontinence , Bowel Incontinence, Weight Loss, Pain with Weight Bearing Related History: Previous Back Injury - Risk Factors AAA Risk Factors: Negative Cauda Equina Risk Factors: Negative - Allergies/Home Medications Allergies/Adverse Reactions: Allergies Allergy/AdvReac Type Severity Reaction Status Date / Time No Known Allergies Allergy Verified 11/04/16 15:13 PMH/Surg Hx/FS Hx/Imm Hx Endocrine/Hematology History: Denies: Hx Anticoagulant Therapy, Hx Diabetes, Hx Anemia, Hx Unexplained Bleeding Cardiovascular History: Reports: Hx Angina, Hx Hypertension - ON MEDS Denies: Hx Aneurysm, Hx Angioplasty, Hx Auto Implanted Cardiovert Defib, Hx Cardiac Arrest, Hx Cardiomegaly, Hx Congenital Heart Disease, Hx Congestive Heart Failure, Hx Coronary Artery Disease, Hx Deep Vein Thrombosis, Hx Myocardial Infarction, Hx Pacemaker/ICD, Hx Peripheral Vascular Disease, Hx Rheumatic Fever, Hx Syncope, Hx Valvular Heart Disease, Other Cardiovascular Problems/Disorders History: Denies: Hx Renal Disease Musculoskeletal History: Reports: Hx Back Problems - back surgeries x2 Denies: Hx Arthritis, Hx Bursitis, Hx Congenital Bone Abnormalities, Hx Fibromyalgia, Hx Gout, Hx Orthopedic Injury, Hx Osteoporosis, Hx Scoliosis, Hx Tendonitis, Other Musculoskeletal History Sensory History: Reports: Hx Contacts or Glasses - glasses Denies: Hx Cataracts, Hx Eye Injury, Hx Eye Prosthesis, Hx Glaucoma, Hx Legally Blind, Hx Macular Degeneration, Hx Vision Problem, Hx Deafness, Hx Hearing Aid, Other Sensory Impairments Opthamlomology History: Reports: Hx Contacts or Glasses - glasses Denies: Hx Cataracts, Hx Eye Injury, Hx Eye Prosthesis, Hx Glaucoma, Hx Legally Blind, Hx Macular Degeneration, Hx Vision Problem, Other Sensory Impairments Neurological History: Reports: Hx Headaches, Other Neuro Impairments/Disorders - PAIN CLINIC PATIENT Denies: Hx Dementia, Hx Developmental Delay, Hx Migraine, Hx Nerve Disease, Hx Seizures, Hx Spinal Cord Injury, Hx Transient Ischemic Attacks (TIA) Psychiatric History: Denies: Hx Panic Disorder - Surgical History Surgery Procedure, Year, and Place: 2006, 2014 BACK SURGERY; Hx Anesthesia Reactions: No - Immunization History Date of Tetanus Vaccine: Unk Date of Influenza Vaccine: 2016 Immunizations Up to Date: Yes Infectious Disease History: No Infectious Disease History: Denies: Traveled Outside the US in Last 30 Days - Family History Known Family History: Positive: None - reviewed & noncontributory, Cardiac Disease - [place] , Hypertension, Diabetes, Other - CVA - Social History Alcohol Use: Occasionally Hx Substance Use: No Substance Use Type: Reports: None Hx Tobacco Use: Yes Smoking Status (MU): Former Smoker Type: Cigarettes Have You Smoked in the Last Year: No Review of Systems Constitutional: Negative Cardiovascular: Negative Respiratory: Negative Gastrointestinal: Negative Positive: Arthralgia, Myalgia - back Skin: Negative Neurological: Negative All Other Systems Reviewed And Are Negative: Yes Physical Exam Triage Information Reviewed: Yes Vital Signs On Initial Exam: Initial Vitals Temp Pulse Resp BP Pulse Ox 98.9 F 92 19 139/89 98 01/17/17 12:33 01/17/17 12:33 01/17/17 12:33 01/17/17 12:33 01/17/17 12:33 slightly elevated BP and HR noted, patient was in significant pain, also diagnosed with HTN. Vital Signs Reviewed: Yes Appearance: Positive: Well-Appearing, No Pain Distress, Well-Nourished Skin: Positive: Warm, Skin Color Reflects Adequate Perfusion, Dry, Other - no crepitus or step off noted. no obvious deformity, surgical scars noted. no ecchymosis or edema appreciated. Head/Face: Positive: Normal Head/Face Inspection Eyes: Positive: Normal, Conjunctiva Clear ENT: Positive: Normal ENT inspection, Hearing grossly normal Neck: Positive: Supple, Nontender, No Lymphadenopathy Respiratory/Lung Sounds: Positive: Clear to Auscultation, Breath Sounds Present. Negative: Decreased Breath Sounds, Rales, Rhonchi, Wheezes Cardiovascular: Positive: Normal, RRR, Pulses are Symmetrical in both Upper and Lower Extremities - 2+. Negative: Leg Edema Left, Leg Edema Right Abdomen Description: Positive: Nontender, Soft. Negative: Bruit, Pulsatile Mass Bowel Sounds: Positive: Present Musculoskeletal: Positive: Limited @ - lower back with all movements due to pain , Pain @ - lower back L1-L5. Negative: Interruption @, Cheng Sign Left, Cheng Sign Right, Edema Right Neurological: Positive: Normal, Sensory/Motor Intact - some sensation deficits of lower distal extremity/foot., Alert, Oriented to Person Place, Time, CN Intact II-III, Reflexes Intact, NV Bundle Intact Distally, Normal Gait - with pain, moves slowly but able to walk Psychiatric: Positive: Normal AVPU Assessment: Alert Diagnostics - Vital Signs Vital Signs Temp Pulse Resp BP Pulse Ox 01/17/17 12:36 98.9 F 92 19 139/89 98 01/17/17 12:33 98.9 F 92 19 139/89 98 - Laboratory Lab Statement: Any lab studies that have been ordered have been reviewed, and results considered in the medical decision making process. Re-Evaluation - Re-Evaluation First Eval Re-Evaluation Time: 14:05 Change: Improved - some relief after medications administered Back Pain Course/Dx - Course Course Of Treatment: Given norflex, dexamethasone and toradol while in ED. denies kidney problems. had some relief. due to PE findings and HPI no further work up or imaging needed at this time. Patient is experiencing chronic typical back pain. Will be given flexeril and prednisone for the next 3 days until seen by PCP. Continue use of tramadol and ibuprofen as directed at home. Already has tramadol 30 day supply at home. Aware of worsening signs and symptoms, Follow up with PCP. Reference #: [id number] - Diagnoses Differential Diagnosis/HQI/PQRI: Positive: Arthritis, Cauda Equina Syndrome, Herniated Disc, Strain, Sprain Provider Diagnoses: Chronic back pain greater than 3 months duration Discharge - Discharge Plan Condition: Stable Disposition: HOME Prescriptions: Cyclobenzaprine TAB* [Flexeril 10 MG TAB*] 10 mg PO BEDTIME #15 tab predniSONE TAB* [Deltasone TAB*] 20 mg PO DAILY #2 tab Patient Education Materials: Chronic Back Pain (ED) Referrals: Garrett Rios MD [Primary Care Provider] - Additional Instructions: Continue take Tramadol and Ibuprofen/Tylenol as directed by your primary care provider. Take flexeril muscle relaxer at bedtime or more frequently if it helps with your pain, do not drive while taking this medication. Take 2 more doses of prednisone as directed. Try using Lidoderm patches for pain relief. Remember to take them off after 12 hours of use. Apply heat/ice. Rest. No lifting or strenuous physical activity. Follow up with PCP and make an appointment to be seen early next week. If symptoms worsen or new symptoms develop please return or seek medical attention promptly.
[2017-01-17] MEDS ORDERED: Dexamethasone IV* 4 MG/ML 1 ML (4 MG) IM ONE (13:13)
[2017-01-17] MEDS ORDERED: Ketorolac INJ* 60 MG/2 ML VIAL IM ONE (13:13)
[2017-01-17] MEDS ORDERED: Orphenadrine Citrate IV* 30 MG/ML 2 ML VIAL IM ONE (13:14)
[2017-01-17 14:26] VITALS: BP 141/76
== END 2017-01-17 14:25 | disposition home or self-care (01) ==
LOC: ED 12:30
DX: M54.5 Low back pain (principal); R53.1 Weakness; Z87.891 Personal history of nicotine dependence
CPT/HCPCS: 96372; 99282; J1100; J1885; J2360

== ENCOUNTER 2017-06-05 13:39 | Emergency (ER) | payer OTHER ==
[2017-06-05 13:46] VITALS: BP 186/117
[2017-06-05] MEDS ORDERED: Ketorolac INJ* 60 MG/2 ML VIAL IM ONE (14:24)
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
[2017-06-05] MEDS ORDERED: Lidocaine PATCH 5%* 1 PATCH ONE (14:29)
[2017-06-05] MEDS ORDERED: oxyCODONE/Acetamin 5/325 MG* TAB PO ONE (14:59)
[2017-06-05] MEDS ORDERED: Lidocaine Patch REMOVE* 1 NOTE MISC SCH (21:00)
[2017-06-06] MEDS ORDERED: Lidocaine PATCH 5%* 1 PATCH TRANSDERM SCH (09:00)
== END 2017-06-05 15:18 | disposition home or self-care (01) ==
LOC: ED 13:39
DX: G89.29 Other chronic pain (principal); M54.5 Low back pain; R53.1 Weakness; R20.2 Paresthesia of skin; I20.9 Angina pectoris, unspecified; I10 Essential (primary) hypertension; Z87.891 Personal history of nicotine dependence
CPT/HCPCS: 96372; 99282; A9270-GY; J1885

== ENCOUNTER 2017-10-10 15:35 | Emergency (ER) | payer OTHER ==
[2017-10-10] MEDS ORDERED: Azithromycin TAB* 250 MG PO ONE (17:57)
[2017-10-10] MEDS ORDERED: Albuterol/Ipratropium NEB.SOL* Albuterol 2.5 MG/Ipratropium 0.5 MG 3 ML INH ONE (17:57)
[2017-10-10] MEDS ORDERED: Ketorolac INJ* 30 MG/ML 1 ML VIAL IM ONE (17:57)
--- NOTE | 2017-10-10 17:58 | ED ---
Throat Pain/Nasal Congestion - HPI Summary HPI Summary: 62 male presents to ED with complaints of sinus/nasal congestion "a cold" that moved into his chest and is now suffering from chest congestion, wheezing, productive cough and headache that began ~ 5 days ago and has been worsening/ not getting better. Denies trouble breathing but sometimes is SOB due to congestion and wheezing. Denies fever/chills and body aches, no sore throat.. No PMHx other than chronic back pain and HTN. Has not taken any medication. States he is having a tough time getting the congestion/mucus out. No chest pain. No other complaints. No known flu exposure. - History of Current Complaint Chief Complaint: EDUpperRespComplaint Time Seen by Provider: 10/10/17 15:52 Hx Obtained From: Patient Onset/Duration: Sudden Onset, Lasting Days, Still Present, Worse Since Severity: Moderate Associated Signs And Symptoms: Positive: Sinus Discomfort, Nasal Discharge Cough: Productive - sometimes - Allergies/Home Medications Allergies/Adverse Reactions: Allergies Allergy/AdvReac Type Severity Reaction Status Date / Time No Known Allergies Allergy Verified 11/04/16 15:13 PMH/Surg Hx/FS Hx/Imm Hx Endocrine/Hematology History: Denies: Hx Anticoagulant Therapy, Hx Diabetes, Hx Anemia, Hx Unexplained Bleeding Cardiovascular History: Reports: Hx Angina, Hx Hypertension - ON MEDS Denies: Hx Aneurysm, Hx Angioplasty, Hx Auto Implanted Cardiovert Defib, Hx Cardiac Arrest, Hx Cardiomegaly, Hx Congenital Heart Disease, Hx Congestive Heart Failure, Hx Coronary Artery Disease, Hx Deep Vein Thrombosis, Hx Myocardial Infarction, Hx Pacemaker/ICD, Hx Peripheral Vascular Disease, Hx Rheumatic Fever, Hx Syncope, Hx Valvular Heart Disease, Other Cardiovascular Problems/Disorders History: Denies: Hx Renal Disease Musculoskeletal History: Reports: Hx Back Problems - back surgeries x2 Denies: Hx Arthritis, Hx Bursitis, Hx Congenital Bone Abnormalities, Hx Fibromyalgia, Hx Gout, Hx Orthopedic Injury, Hx Osteoporosis, Hx Scoliosis, Hx Tendonitis, Other Musculoskeletal History Sensory History: Reports: Hx Contacts or Glasses - glasses Denies: Hx Cataracts, Hx Eye Injury, Hx Eye Prosthesis, Hx Glaucoma, Hx Legally Blind, Hx Macular Degeneration, Hx Vision Problem, Hx Deafness, Hx Hearing Aid, Other Sensory Impairments Opthamlomology History: Reports: Hx Contacts or Glasses - glasses Denies: Hx Cataracts, Hx Eye Injury, Hx Eye Prosthesis, Hx Glaucoma, Hx Legally Blind, Hx Macular Degeneration, Hx Vision Problem, Other Sensory Impairments Neurological History: Reports: Hx Headaches, Other Neuro Impairments/Disorders - PAIN CLINIC PATIENT Denies: Hx Dementia, Hx Developmental Delay, Hx Migraine, Hx Nerve Disease, Hx Seizures, Hx Spinal Cord Injury, Hx Transient Ischemic Attacks (TIA) Psychiatric History: Denies: Hx Panic Disorder - Surgical History Surgery Procedure, Year, and Place: 2006, 2014 BACK SURGERY; Hx Anesthesia Reactions: No - Immunization History Date of Tetanus Vaccine: Unk Date of Influenza Vaccine: 2016 Immunizations Up to Date: Yes Infectious Disease History: No Infectious Disease History: Denies: Traveled Outside the US in Last 30 Days - Family History Known Family History: Positive: None - reviewed & noncontributory, Cardiac Disease - [place] , Hypertension, Diabetes, Other - CVA - Social History Alcohol Use: Rare Hx Substance Use: No Substance Use Type: Reports: None Hx Tobacco Use: Yes Smoking Status (MU): Former Smoker Type: Cigarettes Have You Smoked in the Last Year: No Review of Systems Constitutional: Negative Positive: Nasal Discharge Cardiovascular: Negative Positive: Cough Gastrointestinal: Negative Musculoskeletal: Negative Positive: Headache All Other Systems Reviewed And Are Negative: Yes Physical Exam Triage Information Reviewed: Yes Vital Signs On Initial Exam: Initial Vitals Temp Pulse Resp BP Pulse Ox 99.3 F 74 20 166/96 95 10/10/17 15:38 10/10/17 15:38 10/10/17 15:38 10/10/17 15:38 10/10/17 15:38 O2 improved after duo neb, afebrile. elevated BP patient has HTN, improved some at d/c follow up for recheck with pcp. Vital Signs Reviewed: Yes Appearance: Positive: No Pain Distress, Well-Nourished, Ill-Appearing - sounds congested Skin: Positive: Warm, Skin Color Reflects Adequate Perfusion, Dry. Negative: Cold, Numb, Cyanosis @, Pale, Erythema @ Head/Face: Positive: Normal Head/Face Inspection Eyes: Positive: Conjunctiva Clear ENT: Positive: Hearing grossly normal, Pharyngeal erythema, Nasal congestion, TMs normal, Sinus tenderness, Uvula midline - ariway patent. Negative: TM bulging, TM dull, Tonsillar swelling, Tonsillar exudate Dental: Positive: Percussion Tenderness @ - maxillary b/l Neck: Positive: Supple, Nontender, No Lymphadenopathy Respiratory/Lung Sounds: Positive: Clear to Auscultation, Breath Sounds Present , Wheezes - diffuse bilaterally, improved some after duoneb and patient had relief. Negative: Rales, Rhonchi Cardiovascular: Positive: Normal, RRR, Pulses are Symmetrical in both Upper and Lower Extremities. Negative: Murmur, Rub Abdomen Description: Positive: Nontender, Soft Bowel Sounds: Positive: Present Musculoskeletal: Positive: Normal, Strength/ROM Intact Neurological: Positive: Normal, Sensory/Motor Intact, Alert, Oriented to Person Place, Time Diagnostics - Vital Signs Vital Signs Temp Pulse Resp BP Pulse Ox 10/10/17 15:38 99.3 F 74 20 166/96 95 - Laboratory Lab Statement: Any lab studies that have been ordered have been reviewed, and results considered in the medical decision making process. Re-Evaluation - Re-Evaluation First Eval Re-Evaluation Time: 18:25 Change: Improved - had significant relief after duoneb. wheezing improved and is much less diffusely EENT Course/Dx - Course Course Of Treatment: given duoneb and had significant relief. appears patient is suffering from URI/bronchitis and sinusitis, possible pneumonia. patient did not want xray, as treatment would not change. O2 improved after duoneb. no chest pain or trouble breathing. continue use of inhaler at home. azithromycin, first dose while in ED. toradol for headache. continue ibuprofen at home for fever/pain. mucinex, saline rinses, flonase, rest, fluids. aware of worsening signs and symptoms to watch out for. follow up with pcp in 3 days to ensure improvement. no other concerns at this time. educated on hygeine precautions. - Differential Diagnoses Differential Diagnoses: Pharyngitis, Sinusitis, Tonsilitis, URI/Bronchitis, Other - pneumonia - Diagnoses Provider Diagnoses: Bronchitis, Upper respiratory infection, Sinusitis Discharge - Discharge Plan Condition: Stable Disposition: HOME Prescriptions: Albuterol HFA INHALER* [Ventolin HFA Inhaler*] 1 puff INH Q4H PRN #1 mdi PRN Reason: Sob/Wheezing Azithromycin TAB* [Zithromax TAB (Z-CORDELL) 250 mg #6 tabs] 250 mg PO DAILY #4 tab Fluticasone NASAL SPRAY 50MCG* [Flonase NASAL SPRAY 50MCG*] 2 spray BOTH NARES DAILY #1 btl Patient Education Materials: Sinusitis (ED), Upper Respiratory Infection (ED), Acute Bronchitis (ED), Warm Compress or Soak (ED) Referrals: Garrett Rios MD [Primary Care Provider] - Additional Instructions: Increase fluid intake. Take ibuprofen/tylenol for fever and headache. Take prescribed antibiotic as directed to help with infection, starting tomorrow as you already had today's dose. Recommend taking mucniex over the counter for decongestant and help break up the chest congestion. Inhaler used as needed for SOB/wheezing. Flonase for nasal congestion. Also recommend saline nasal rinses for nasal congestion, hot showers and warm compresses over cheeks. Any new or worsening symptoms, as discussed, please return and seek medical attention promptly as symptoms can worsen. Follow up with PCP for recheck in 3 days, sooner if needed.
[2017-10-10 18:55] VITALS: BP 155/94
== END 2017-10-10 18:54 | disposition home or self-care (01) ==
LOC: ED 15:35
DX: J40 Bronchitis, not specified as acute or chronic (principal); J06.9 Acute upper respiratory infection, unspecified; J01.90 Acute sinusitis, unspecified; R05 Cough; R51 Headache; Z87.891 Personal history of nicotine dependence
CPT/HCPCS: 94640; 99282; A9270-GY; J1885

== ENCOUNTER 2017-10-13 17:40 | Emergency (ER) | payer OTHER ==
[2017-10-13 19:33] LABS: ABS Basophils 0.1 10^3/ul (0-0.2); ABS Eosinophils 0.2 10^3/ul (0-0.6); ABS Lymphocytes 1.6 10^3/ul (1.0-4.8); ABS Monocytes 1.2 10^3/ul (0-0.8); ABS Neutrophils 4.9 10^3/ul (1.5-7.7); ABS Nucleated RBC 0 10^3/ul; Eosinophil % 2.2 % (0-6); Hematocrit 41 % (42-52); Hemoglobin 14.1 g/dl (14.0-18.0); Lymphocyte % 19.6 % (25-47); Mean Corpuscular HGB Conc 34 g/dl (31-36); Mean Corpuscular Hemoglobin 31 pg (27-31); Mean Corpuscular Volume 89 fL (80-94); Mean Platelet Volume 8 um3 (7.4-10.4); Nucleated Red Blood Cells % 0; Platelet Count 291 10^3/ul (150-450); Red Blood Count 4.62 10^6/ul (4.0-5.4); Red Cell Distribution Width 14 % (10.5-15); White Blood Count 7.9 10^3/ul (3.5-10.8)
[2017-10-13 19:48] LABS: EGFR Non-African American 90.7 (>60)
[2017-10-13] MEDS ORDERED: Albuterol/Ipratropium NEB.SOL* Albuterol 2.5 MG/Ipratropium 0.5 MG 3 ML INH ONE (21:24)
[2017-10-13] MEDS ORDERED: Acetaminophen TAB* 325 MG PO ONE (21:24)
[2017-10-13] MEDS ORDERED: Albuterol 2.5 MG/3 ML NEB.SOL* (0.083%) INH ONE (21:24)
[2017-10-13] MEDS ORDERED: Ibuprofen TAB* 800 MG PO ONE (21:25)
[2017-10-13] MEDS ORDERED: Codeine TAB* 30 MG PO ONE (22:15)
[2017-10-13] MEDS ORDERED: predniSONE TAB* 20 MG PO ONE (22:16)
--- NOTE | 2017-10-13 22:25 | ED ---
James Wiggins Angela, scribPrabhjot Tellez MD on 10/13/17 at 2113 . Influenza-Like Illness - HPI Summary HPI Summary: This pt is a 62 y/o male [facility] c/o body aches, chest congestion, headache x2 days. Pt additionally notes a cough. He denies difficulty breathing but reports some SOB secondary to cough. He does not know if he has had a fever. Pt is currently on antibiotics. He was seen in the ED 2 days ago for the same symptoms. - History of Current Complaint Chief Complaint: EDFluSymptoms Time Seen by Provider: 10/13/17 21:07 Hx Obtained From: Patient Onset/Duration: Lasting Days, Still Present Severity: Moderate Associated Signs & Symptoms: Myalgia, Cough, Nasal Congestion, Headache - Allergy/Home Medications Allergies/Adverse Reactions: Allergies Allergy/AdvReac Type Severity Reaction Status Date / Time No Known Allergies Allergy Verified 11/04/16 15:13 PMH/Surg Hx/FS Hx/Imm Hx Endocrine/Hematology History: Denies: Hx Anticoagulant Therapy, Hx Diabetes, Hx Anemia, Hx Unexplained Bleeding Cardiovascular History: Reports: Hx Angina, Hx Hypertension - ON MEDS Denies: Hx Aneurysm, Hx Angioplasty, Hx Auto Implanted Cardiovert Defib, Hx Cardiac Arrest, Hx Cardiomegaly, Hx Congenital Heart Disease, Hx Congestive Heart Failure, Hx Coronary Artery Disease, Hx Deep Vein Thrombosis, Hx Myocardial Infarction, Hx Pacemaker/ICD, Hx Peripheral Vascular Disease, Hx Rheumatic Fever, Hx Syncope, Hx Valvular Heart Disease, Other Cardiovascular Problems/Disorders History: Denies: Hx Renal Disease Musculoskeletal History: Reports: Hx Back Problems - back surgeries x2 Denies: Hx Arthritis, Hx Bursitis, Hx Congenital Bone Abnormalities, Hx Fibromyalgia, Hx Gout, Hx Orthopedic Injury, Hx Osteoporosis, Hx Scoliosis, Hx Tendonitis, Other Musculoskeletal History Sensory History: Reports: Hx Contacts or Glasses - glasses Denies: Hx Cataracts, Hx Eye Injury, Hx Eye Prosthesis, Hx Glaucoma, Hx Legally Blind, Hx Macular Degeneration, Hx Vision Problem, Hx Deafness, Hx Hearing Aid, Other Sensory Impairments Opthamlomology History: Reports: Hx Contacts or Glasses - glasses Denies: Hx Cataracts, Hx Eye Injury, Hx Eye Prosthesis, Hx Glaucoma, Hx Legally Blind, Hx Macular Degeneration, Hx Vision Problem, Other Sensory Impairments Neurological History: Reports: Hx Headaches, Other Neuro Impairments/Disorders - PAIN CLINIC PATIENT Denies: Hx Dementia, Hx Developmental Delay, Hx Migraine, Hx Nerve Disease, Hx Seizures, Hx Spinal Cord Injury, Hx Transient Ischemic Attacks (TIA) Psychiatric History: Denies: Hx Panic Disorder - Surgical History Surgery Procedure, Year, and Place: 2006, 2014 BACK SURGERY; Hx Anesthesia Reactions: No - Immunization History Date of Tetanus Vaccine: Unk Date of Influenza Vaccine: 2016 Infectious Disease History: No Infectious Disease History: Denies: Traveled Outside the US in Last 30 Days - Family History Known Family History: Positive: None - reviewed & noncontributory, Cardiac Disease - [place] , Hypertension, Diabetes, Other - CVA - Social History Alcohol Use: Rare Hx Substance Use: No Substance Use Type: Reports: None Hx Tobacco Use: Yes Smoking Status (MU): Former Smoker Type: Cigarettes Have You Smoked in the Last Year: No Review of Systems Negative: Fever, Chills ENT: Other - chest congestion Positive: Cough Positive: Myalgia Positive: Headache All Other Systems Reviewed And Are Negative: Yes Physical Exam - Summary Physical Exam Summary: VITAL SIGNS: Reviewed. GENERAL: Patient is a well-developed and nourished male who is lying comfortable in the stretcher. Patient is not in any acute respiratory distress. HEAD AND FACE: No signs of trauma. No ecchymosis, hematomas or skull depressions. No sinus tenderness. EYES: PERRLA, EOMI x 2, No injected conjunctiva, no nystagmus. EARS: Hearing grossly intact. Ear canals and tympanic membranes are within normal limits. MOUTH: Oropharynx within normal limits. NECK: Supple, trachea is midline, no adenopathy, no JVD, no carotid bruit, no c- spine tenderness, neck with full ROM. CHEST: Symmetric, no tenderness at palpation LUNGS: Clear to auscultation bilaterally. No wheezing or crackles. CVS: Regular rate and rhythm, S1 and S2 present, no murmurs or gallops appreciated. ABDOMEN: Soft, non-tender. No signs of distention. No rebound no guarding, and no masses palpated. Bowel sounds are normal. EXTREMITIES: FROM in all major joints, no edema, no cyanosis or clubbing. NEURO: Alert and oriented x 3. No acute neurological deficits. Speech is normal and follows commands. SKIN: Dry and warm Triage Information Reviewed: Yes Vital Signs On Initial Exam: Initial Vitals Temp Pulse Resp BP Pulse Ox 98.7 F 71 16 167/104 96 10/13/17 18:00 10/13/17 18:00 10/13/17 18:00 10/13/17 18:00 10/13/17 18:00 Vital Signs Reviewed: Yes Diagnostics - Vital Signs Vital Signs Temp Pulse Resp BP Pulse Ox 10/13/17 20:01 98.9 F 73 20 145/91 99 10/13/17 18:00 98.7 F 71 16 167/104 96 - Laboratory Lab Results: Lab Results 10/13/17 10/13/17 10/13/17 Range/Units 19:20 19:20 20:19 WBC 7.9 (3.5-10.8) 10^3/ul RBC 4.62 (4.0-5.4) 10^6/ul Hgb 14.1 (14.0-18.0) g/dl Hct 41 L (42-52) % MCV 89 (80-94) fL MCH 31 (27-31) pg MCHC 34 (31-36) g/dl RDW 14 (10.5-15) % Plt Count 291 (150-450) 10^3/ul MPV 8 (7.4-10.4) um3 Neut % (Auto) 62.4 (38-83) % Lymph % (Auto) 19.6 L (25-47) % Custer % (Auto) 14.8 H (0-7) % Eos % (Auto) 2.2 (0-6) % Baso % (Auto) 1.0 (0-2) % Absolute Neuts (auto) 4.9 (1.5-7.7) 10^3/ul Absolute Lymphs (auto) 1.6 (1.0-4.8) 10^3/ul Absolute Monos (auto) 1.2 H (0-0.8) 10^3/ul Absolute Eos (auto) 0.2 (0-0.6) 10^3/ul Absolute Basos (auto) 0.1 (0-0.2) 10^3/ul Absolute Nucleated RBC 0 10^3/ul Nucleated RBC % 0 Sodium 135 (133-145) mmol/L Potassium 4.2 (3.5-5.0) mmol/L Chloride 100 L (101-111) mmol/L Carbon Dioxide 31 (22-32) mmol/L Anion Gap 4 (2-11) mmol/L BUN 7 (6-24) mg/dL Creatinine 0.85 (0.67-1.17) mg/dL Est GFR ( Amer) 116.7 (>60) Est GFR (Non-Af Amer) 90.7 (>60) BUN/Creatinine Ratio 8.2 (8-20) Glucose 100 (70-100) mg/dL Calcium 9.5 (8.6-10.3) mg/dL Total Bilirubin 0.80 (0.2-1.0) mg/dL AST 36 (13-39) U/L ALT 38 (7-52) U/L Alkaline Phosphatase 63 (34-104) U/L Total Protein 7.4 (6.4-8.9) g/dL Albumin 3.9 (3.2-5.2) g/dL Globulin 3.5 (2-4) g/dL Albumin/Globulin Ratio 1.1 (1-3) Influenza A (Rapid) Negative (Negative) Influenza B (Rapid) Negative (Negative) Result Diagrams: 10/13/17 19:20 10/13/17 19:20 Lab Statement: Any lab studies that have been ordered have been reviewed, and results considered in the medical decision making process. - Radiology Chest XR Xray Interpretation: No Acute Changes - Negative chest XR. Radiology Interpretation Completed By: ED Physician Re-Evaluation - Re-Evaluation First Eval Re-Evaluation Time: 22:21 Comment: I reviewed the lab and XR results with the pt. Flu Symptom Course/Dx - Course Course Of Treatment: Pt is a 62 y/o male who presents with body aches, chest congestion, headache x2 days. In the ED course, the pt was given Tylenol, ibuprofen, duoneb, and albuterol. Influenza A and B is negative. Chest XR is negative. Therefore the pt will be discharged to home with follow up from his PCP. He will be be given a prescription for Codeine and Prednisone. Pt is instructed to return to the ED for any worsening symptoms. - Diagnoses Provider Diagnoses: Cough Discharge - Discharge Plan Condition: Stable Disposition: HOME Prescriptions: Codeine TAB* [Codeine Tab*] 30 mg PO Q6H PRN #14 tab MDD 4 PRN Reason: Cough predniSONE TAB* [Deltasone TAB*] 40 mg PO DAILY #10 tab Patient Education Materials: Acute Cough (ED) Referrals: Garrett Rios MD [Primary Care Provider] - 3 Days Additional Instructions: Please follow up with your primary care provider. RETURN TO EMERGENCY DEPARTMENT FOR ANY NEW OR WORSENING SYMPTOMS. The documentation as recorded by the James mack Angela accurately reflects the service I personally performed and the decisions made by , Prabhjot Villarreal MD.
[2017-10-13 23:01] VITALS: BP 123/65
--- NOTE | 2017-10-14 07:48 | RAD ---
INDICATION: Cough COMPARISON: Chest x-ray dated July 11, 2016 TECHNIQUE: PA and lateral views of the chest were obtained. FINDINGS: The heart and mediastinum are normal in size and contour. The lungs are grossly clear. There is no evidence of large pleural effusion. Visualized bones are normal for the patient's age. There is no radiographic evidence of free air beneath the diaphragm IMPRESSION: No radiographic evidence of acute cardiopulmonary disease.
--- NOTE | 2017-10-14 09:05 | UC ---
- Progress Note Progress Note: Call from [facility] pharmacy---they do not have Codeine 30mg po in stock. Reviewed Dr. Cuevas note with send script for Robitussin and Codeine for cough Re-Evaluation - Re-Evaluation First Eval Re-Evaluation Time: 22:21 Comment: I reviewed the lab and XR results with the pt. Course/Dx - Diagnoses Provider Diagnoses: Cough
== END 2017-10-13 23:01 | disposition home or self-care (01) ==
LOC: ED 17:40
DX: R05 Cough (principal); Z87.891 Personal history of nicotine dependence
CPT/HCPCS: 36415; 71046; 80053; 85025; 86140; 87502; 94640; 99283; A9270-GY; J7512

== ENCOUNTER 2017-11-07 22:59 | Emergency (ER) | payer OTHER ==
[2017-11-08] MEDS ORDERED: methylPREDNISolone 125 MG* 2 ML VIAL IM ONE (00:23)
[2017-11-08] MEDS ORDERED: Ibuprofen TAB* 400 MG PO ONE (00:24)
[2017-11-08] MEDS ORDERED: oxyCODONE/Acetamin 5/325 MG* TAB PO ONE (00:24)
[2017-11-08 03:18] VITALS: BP 144/90
--- NOTE | 2017-11-08 09:15 | RAD ---
INDICATION: 3 weeks low back pain and leg pain. Chronic pain. Comparison: August 12, 2016 MRI Technique: Noncontrast CT lumbar sacral spine. Multiplanar reformation. Report: Simple cyst mid pole LEFT kidney. Negative for obstructive uropathy. Tortuous abdominal aorta without aneurysm. Normal lumbar sacral spine alignment. Postsurgical change of L3-L4 through L5-S1 laminectomy and posterior instrumentation fusion from L2 through L5. Negative for fracture. T12-L1: Negative for spinal stenosis. L1-L2: Mild facet joint osteoarthritis. Negative for spinal stenosis. L2-L3: Minimal annular disc bulge and posterior element hypertrophic arthropathy without significant acquired spinal stenosis. L3-L4: Post decompressive laminectomy.Detail limited due to artifact from the spinal fixation hardware. No gross evidence for acquired spinal stenosis. L4-L5: Post decompressive laminectomy.Detail limited due to the spinal fixation hardware. No compelling evidence for acquired central canal stenosis. Degenerative spondylosis and posterior element hypertrophy results in moderate bilateral foraminal stenosis without significant change. L5-S1: Post decompressive laminectomy.Dorsal disc osteophyte complex appears chronic. No compelling acquired central canal stenosis. Degenerative spondylosis and facet joint osteoarthritis results in moderate bilateral foraminal stenosis without significant change. 2.6 cm AP by 3.7 cm transverse by 12.5 cm cephalocaudal thick walled near water density fluid collection within the midline posterior subcutaneous tissue plane approximating the muscular fascia at the deep margin with surrounding subcutaneous edema may represent postoperative seroma or hematoma or potentially abscess. IMPRESSION: 1. Post L2-L3 through L5-S1 decompressive laminectomy. 2. Detail of the central canal at the postsurgical levels is limited due to metallic hardware artifact. 3. Multilevel foraminal stenosis as described. 4. Negative for fracture or malalignment. 5. 2.6 cm AP by 3.7 cm transverse by 12.5 cm cephalocaudal thick walled near water density fluid collection within the midline posterior subcutaneous tissue plane approximating the muscular fascia at the deep margin with surrounding subcutaneous edema may represent postoperative seroma or hematoma or potentially abscess. Correlate with clinical assessment.
--- NOTE | 2017-11-12 20:25 | ED ---
Suleiman Wiggins Tecjoon, scribed for Myke Topete MD on 11/08/17 at 0020 . Lower Extremity - HPI Summary HPI Summary: This patient is a 62 year old male presenting to [facility] with a chief complaint of left leg pain since approx. 1900 today. Patient states that these sx have been persisting since 1 month ago. Patient states that he had difficulty moving his leg which has improved. Patient states that the leg gives out on him regularly, and he has difficulty ambulating. There is a numbness that began below the knee, but has been creeping up the leg. The pain is rated 3/10 in severity. pt states denies any exacerbating factors or pain. - History of Current Complaint Chief Complaint: EDBackInjuryPain Stated Complaint: LEG NUMBNESS Time Seen by Provider: 11/08/17 00:06 Hx Obtained From: Patient Onset/Duration: Still Present - 3-4 Severity Currently: Moderate Pain Intensity: 6 Pain Scale Used: 0-10 Numeric Timing: Constant Location: Is Discrete @ - LLE Associated Signs And Symptoms: Positive: Other - numbness Aggravating Factor(s): Nothing Alleviating Factor(s): Nothing Able to Bear Weight: Yes - has difficulty - Allergies/Home Medications Allergies/Adverse Reactions: Allergies Allergy/AdvReac Type Severity Reaction Status Date / Time No Known Allergies Allergy Verified 11/11/17 22:27 PMH/Surg Hx/FS Hx/Imm Hx Previously Healthy: No Endocrine/Hematology History: Denies: Hx Anticoagulant Therapy, Hx Diabetes, Hx Anemia, Hx Unexplained Bleeding Cardiovascular History: Reports: Hx Angina, Hx Hypertension - ON MEDS Denies: Hx Aneurysm, Hx Angioplasty, Hx Auto Implanted Cardiovert Defib, Hx Cardiac Arrest, Hx Cardiomegaly, Hx Congenital Heart Disease, Hx Congestive Heart Failure, Hx Coronary Artery Disease, Hx Deep Vein Thrombosis, Hx Myocardial Infarction, Hx Pacemaker/ICD, Hx Peripheral Vascular Disease, Hx Rheumatic Fever, Hx Syncope, Hx Valvular Heart Disease, Other Cardiovascular Problems/Disorders History: Denies: Hx Renal Disease Musculoskeletal History: Reports: Hx Back Problems - back surgeries x2 Denies: Hx Arthritis, Hx Bursitis, Hx Congenital Bone Abnormalities, Hx Fibromyalgia, Hx Gout, Hx Orthopedic Injury, Hx Osteoporosis, Hx Scoliosis, Hx Tendonitis, Other Musculoskeletal History Sensory History: Reports: Hx Contacts or Glasses - glasses Denies: Hx Cataracts, Hx Eye Injury, Hx Eye Prosthesis, Hx Glaucoma, Hx Legally Blind, Hx Macular Degeneration, Hx Vision Problem, Hx Deafness, Hx Hearing Aid, Other Sensory Impairments Opthamlomology History: Reports: Hx Contacts or Glasses - glasses Denies: Hx Cataracts, Hx Eye Injury, Hx Eye Prosthesis, Hx Glaucoma, Hx Legally Blind, Hx Macular Degeneration, Hx Vision Problem, Other Sensory Impairments Neurological History: Reports: Hx Headaches, Other Neuro Impairments/Disorders - PAIN CLINIC PATIENT Denies: Hx Dementia, Hx Developmental Delay, Hx Migraine, Hx Nerve Disease, Hx Seizures, Hx Spinal Cord Injury, Hx Transient Ischemic Attacks (TIA) Psychiatric History: Denies: Hx Panic Disorder - Surgical History Surgery Procedure, Year, and Place: 2006, 2014 BACK SURGERY; Hx Anesthesia Reactions: No - Immunization History Date of Tetanus Vaccine: Unk Date of Influenza Vaccine: 2015 Infectious Disease History: No Infectious Disease History: Denies: Traveled Outside the US in Last 30 Days - Family History Known Family History: Positive: Cardiac Disease - [place] , Hypertension, Diabetes, Other - CVA - Social History Alcohol Use: Rare Hx Substance Use: No Substance Use Type: Reports: None Hx Tobacco Use: Yes Smoking Status (MU): Former Smoker Type: Cigarettes Have You Smoked in the Last Year: No Review of Systems Negative: Fever Positive: Other - LLE pain Positive: Numbness All Other Systems Reviewed And Are Negative: Yes Physical Exam - Summary Physical Exam Summary: Appearance: Well-appearing, no distress, Well-nourished Skin: Warm, color reflects adequate perfusion Head: Normal Head/Face inspection Eyes: Conjunctiva clear ENT: Normal inspection Neck: Supple, no nodes, no JVD. Respiratory: Lungs clear, Normal breath sounds, no respiratory distress Cardio: RRR, No murmur, pulses normal, brisk capillary refill Abdomen: soft, nontender, no guarding, no rebound Bowel sounds: present Musculoskeletal: Decreased sensation in LLE, Strength 4/5 in LLE Back: nontender; no midline/spinal tenderness, erythema, or ecchymosis;; FROM; straight leg test negative Neuro: Alert, muscle tone normal, facial symmetry, speech normal, sensory/motor intact Psychological: Normal Triage Information Reviewed: Yes Vital Signs On Initial Exam: Initial Vitals Temp Pulse Resp BP Pulse Ox 98.2 F 74 16 165/88 97 11/07/17 23:04 11/07/17 23:04 03/24/18 23:04 11/07/17 23:04 11/07/17 23:04 Vital Signs Reviewed: Yes Diagnostics - Vital Signs Vital Signs Temp Pulse Resp BP Pulse Ox 11/07/17 23:04 98.2 F 74 16 165/88 97 - Laboratory Lab Statement: Any lab studies that have been ordered have been reviewed, and results considered in the medical decision making process. Re-Evaluation - Re-Evaluation First Eval Re-Evaluation Time: 02:29 Change: Improved Comment: Pt states left leg numbness resolved. pt denies any new back pain or discomfort. pt denies any F/C. Repeat lumbar spine exam negative. pt FROM left leg. Lower Extremity Course/Dx - Diagnoses Differential Diagnosis/HQI/PQRI: Positive: Bursitis, Contusion, Fracture (Closed ), Infection, Osteomyelitis, Sciatica, Sprain, Strain Provider Diagnoses: Herniated disc, Chronic low back pain Discharge - Sign-Out/Discharge Documenting (check all that apply): Discharge - Discharge Plan Condition: Improved Disposition: HOME Prescriptions: Methocarbamol TAB* [Robaxin 500 MG TAB*] 750 mg PO TID PRN #12 tab PRN Reason: Spasms predniSONE TAB* [Deltasone TAB*] 60 mg PO DAILY #6 tab Patient Education Materials: Lumbar Radiculopathy (ED) Referrals: Garrett Rios MD [Primary Care Provider] - 2 Days - Billing Disposition and Condition Condition: IMPROVED Disposition: HOME The documentation as recorded by the Suleiman mack Tecjoon accurately reflects the service I personally performed and the decisions made by , Myke Topete MD.
== END 2017-11-08 03:18 | disposition home or self-care (01) ==
LOC: ED 22:59
DX: M79.605 Pain in left leg (principal); Z87.891 Personal history of nicotine dependence; M51.24 Other intervertebral disc displacement, thoracic region; G89.29 Other chronic pain; M54.5 Low back pain
CPT/HCPCS: 72131; 96372; 99283; A9270-GY; J2930

== ENCOUNTER 2017-11-11 22:17 | Emergency (ER) | payer OTHER ==
[2017-11-11] MEDS ORDERED: amLODIPine TAB* 5 MG PO ONE (23:15)
[2017-11-11 23:42] VITALS: BP 157/103
--- NOTE | 2017-11-12 00:42 | ED ---
So Wiggins Abhishek, scribed for Kirk Edge MD on 11/11/17 at 2321 . Hypertension - HPI Summary HPI Summary: This patient is a 62 year old M presenting to [facility] with a chief complaint of hypertension since today. Pt reports his blood pressure being around 190 systolic and 110 diastolic. Normally blood pressure runs normal according to the pt. The physician has given the pt different kinds of medication because some are not as effective as others. The patient rates the pain 0/10 in severity. Symptoms aggravated by nothing. Symptoms alleviated by nothing. Patient reports lightheadedness. Pt has also reported to not have taken medication because he was unable to "find them." - History of Current Complaint Chief Complaint: EDHypertension Stated Complaint: HIGH BLOOD PRESSURE Associated Signs & Symptoms: Negative - Allergies/Home Medications Allergies/Adverse Reactions: Allergies Allergy/AdvReac Type Severity Reaction Status Date / Time No Known Allergies Allergy Verified 11/11/17 22:27 PMH/Surg Hx/FS Hx/Imm Hx Endocrine/Hematology History: Denies: Hx Anticoagulant Therapy, Hx Diabetes, Hx Anemia, Hx Unexplained Bleeding Cardiovascular History: Reports: Hx Angina, Hx Hypertension - ON MEDS Denies: Hx Aneurysm, Hx Angioplasty, Hx Auto Implanted Cardiovert Defib, Hx Cardiac Arrest, Hx Cardiomegaly, Hx Congenital Heart Disease, Hx Congestive Heart Failure, Hx Coronary Artery Disease, Hx Deep Vein Thrombosis, Hx Myocardial Infarction, Hx Pacemaker/ICD, Hx Peripheral Vascular Disease, Hx Rheumatic Fever, Hx Syncope, Hx Valvular Heart Disease, Other Cardiovascular Problems/Disorders History: Denies: Hx Renal Disease Musculoskeletal History: Reports: Hx Back Problems - back surgeries x2 Denies: Hx Arthritis, Hx Bursitis, Hx Congenital Bone Abnormalities, Hx Fibromyalgia, Hx Gout, Hx Orthopedic Injury, Hx Osteoporosis, Hx Scoliosis, Hx Tendonitis, Other Musculoskeletal History Sensory History: Reports: Hx Contacts or Glasses - glasses Denies: Hx Cataracts, Hx Eye Injury, Hx Eye Prosthesis, Hx Glaucoma, Hx Legally Blind, Hx Macular Degeneration, Hx Vision Problem, Hx Deafness, Hx Hearing Aid, Other Sensory Impairments Opthamlomology History: Reports: Hx Contacts or Glasses - glasses Denies: Hx Cataracts, Hx Eye Injury, Hx Eye Prosthesis, Hx Glaucoma, Hx Legally Blind, Hx Macular Degeneration, Hx Vision Problem, Other Sensory Impairments Neurological History: Reports: Hx Headaches, Other Neuro Impairments/Disorders - PAIN CLINIC PATIENT Denies: Hx Dementia, Hx Developmental Delay, Hx Migraine, Hx Nerve Disease, Hx Seizures, Hx Spinal Cord Injury, Hx Transient Ischemic Attacks (TIA) Psychiatric History: Denies: Hx Panic Disorder - Surgical History Surgery Procedure, Year, and Place: 2006, 2014 BACK SURGERY; Hx Anesthesia Reactions: No - Immunization History Date of Tetanus Vaccine: Unk Date of Influenza Vaccine: 2015 Infectious Disease History: No Infectious Disease History: Denies: Traveled Outside the US in Last 30 Days - Family History Known Family History: Positive: Cardiac Disease - [place] , Hypertension, Diabetes, Other - CVA - Social History Alcohol Use: None Hx Substance Use: No Substance Use Type: Reports: None Hx Tobacco Use: Yes Smoking Status (MU): Former Smoker Type: Cigarettes Have You Smoked in the Last Year: No Review of Systems Constitutional: Negative Eyes: Negative ENT: Negative Cardiovascular: Other - Hypertensive Respiratory: Negative Gastrointestinal: Negative Genitourinary: Negative Musculoskeletal: Negative Skin: Negative Neurological: Other - Lightheadedness Psychological: Normal All Other Systems Reviewed And Are Negative: Yes Physical Exam - Summary Physical Exam Summary: Appearance: Well appearing, no pain distress Skin: warm, dry, reflects adequate perfusion Head/face: normal Eyes: EOMI, AIDA ENT: normal Neck: supple, non-tender Respiratory: CTA, breath sounds present Cardiovascular: RRR, pulses symmetrical Abdomen: non-tender, soft Bowel Sounds: present Musculoskeletal: normal, strength/ROM intact Neuro: normal, sensory motor intact, A&Ox3 Triage Information Reviewed: Yes Vital Signs On Initial Exam: Initial Vitals Temp Pulse Resp BP Pulse Ox 97.4 F 66 18 175/105 98 11/11/17 22:25 11/11/17 22:25 11/11/17 22:25 11/11/17 22:25 11/11/17 22:25 Vital Signs Reviewed: Yes Diagnostics - Vital Signs Vital Signs Temp Pulse Resp BP Pulse Ox 11/11/17 23:00 186/111 11/11/17 22:58 181/116 11/11/17 22:25 97.4 F 66 18 175/105 98 - Laboratory Lab Statement: Any lab studies that have been ordered have been reviewed, and results considered in the medical decision making process. Hypertension Course/Dx - Course Course Of Treatment: pt has been non-compliant with BP meds. Presently he is asymptomtic. He came in after checking BP at [employer] while working after he felt a bit off for a short time. Given oral norvasc and will restart his BP meds which he has at home. F/U for BP check with PMD. - Diagnoses Provider Diagnoses: Uncontrolled hypertension, Noncompliance with medication regimen Discharge - Sign-Out/Discharge Documenting (check all that apply): Discharge - Discharged home - Discharge Plan Condition: Good Disposition: HOME Patient Education Materials: Chronic Hypertension (ED) Referrals: Garrett Rios MD [Primary Care Provider] - Additional Instructions: TAKE YOUR MEDICATIONS as prescribed. Call your doctor first thing in the morning for an appt. Return with chest pain, severe headaches, worse or other concerns. - Billing Disposition and Condition Condition: GOOD Disposition: HOME The documentation as recorded by the So mack Abhishek accurately reflects the service I personally performed and the decisions made by me, Kirk Edge MD.
== END 2017-11-11 23:40 | disposition home or self-care (01) ==
LOC: ED 22:17
DX: I10 Essential (primary) hypertension (principal); Z87.891 Personal history of nicotine dependence; R42 Dizziness and giddiness
CPT/HCPCS: 93005; 99283; A9270-GY

== ENCOUNTER 2017-12-20 15:48 | Emergency (ER) | payer OTHER ==
[2017-12-20] MEDS ORDERED: Morphine VIAL* 4 MG/ML VIAL (1 ml vial) IV ONE (16:36)
[2017-12-20] MEDS ORDERED: Metoclopramide IV* 5 MG/ML 2 ML VIAL IV ONE (16:36)
--- NOTE | 2017-12-20 16:45 | ED ---
Back Pain - HPI Summary HPI Summary: Pt here w/ back pain since lumbar melanie surgery 1 year ago. He felt better for 1 month after surgery but has been struggling w/ pain since. Has had Lt LE nubness form knee down for many months - surgeon told him he has a pinched nerve here. He takes gabapentin w/o relief. Over the past week, he reports his back pain is worse and radiates into his Rt thigh. Was seen here on 11/[address] revealed fluid collection possibly seroma, hemorrhage or abscess. No labs were checked at that time but vitals were stable. He had relief w/ steroid and robaxen while he took it that day and few days to follow. Pain has worsened since cessation despite taking his oxycodone 10mg [address] Guadarrama ( pain management). He states he could take more but he tries not to. Explained that he accidentally dropped his meds out of his coat pocket while at work 2 days ago - has been taking ibuprofen since to aid with pain control but couldn' t take it anymore today so came here. Denies fever, chills, N/V/D, change in bowel/bladder habits. - History of Current Complaint Chief Complaint: EDBackInjuryPain Stated Complaint: BACK PAIN Time Seen by Provider: 12/20/17 16:13 Hx Obtained From: Patient Pain Intensity: 10 - Allergies/Home Medications Allergies/Adverse Reactions: Allergies Allergy/AdvReac Type Severity Reaction Status Date / Time No Known Allergies Allergy Verified 11/11/17 22:27 Home Medications: Home Medications Gabapentin CAP(*) [Neurontin 100 mg CAP(*)] 100 mg PO TID PRN 12/20/17 [History Confirmed 12/20/17] Metoprolol Succinate XL TAB* [Toprol XL TAB*] 75 mg PO DAILY 12/20/17 [History Confirmed 12/20/17] NIFEdipine ER TAB* [Procardia Xl TAB*] 60 mg PO DAILY 12/20/17 [History Confirmed 12/20/17] oxyCODONE TAB* [Roxycodone TAB 5 mg*] 10 mg PO Q8H PRN 12/20/17 [History Confirmed 12/20/17] PMH/Surg Hx/FS Hx/Imm Hx Previously Healthy: Yes Endocrine/Hematology History: Denies: Hx Anticoagulant Therapy, Hx Diabetes, Hx Anemia, Hx Unexplained Bleeding Cardiovascular History: Reports: Hx Angina, Hx Hypertension - ON MEDS Denies: Hx Aneurysm, Hx Angioplasty, Hx Auto Implanted Cardiovert Defib, Hx Cardiac Arrest, Hx Cardiomegaly, Hx Congenital Heart Disease, Hx Congestive Heart Failure, Hx Coronary Artery Disease, Hx Deep Vein Thrombosis, Hx Myocardial Infarction, Hx Pacemaker/ICD, Hx Peripheral Vascular Disease, Hx Rheumatic Fever, Hx Syncope, Hx Valvular Heart Disease, Other Cardiovascular Problems/Disorders History: Denies: Hx Renal Disease Musculoskeletal History: Reports: Hx Back Problems - back surgeries x2 Denies: Hx Arthritis, Hx Bursitis, Hx Congenital Bone Abnormalities, Hx Fibromyalgia, Hx Gout, Hx Orthopedic Injury, Hx Osteoporosis, Hx Scoliosis, Hx Tendonitis, Other Musculoskeletal History Sensory History: Reports: Hx Contacts or Glasses - glasses Denies: Hx Cataracts, Hx Eye Injury, Hx Eye Prosthesis, Hx Glaucoma, Hx Legally Blind, Hx Macular Degeneration, Hx Vision Problem, Hx Deafness, Hx Hearing Aid, Other Sensory Impairments Opthamlomology History: Reports: Hx Contacts or Glasses - glasses Denies: Hx Cataracts, Hx Eye Injury, Hx Eye Prosthesis, Hx Glaucoma, Hx Legally Blind, Hx Macular Degeneration, Hx Vision Problem, Other Sensory Impairments Neurological History: Reports: Hx Headaches, Other Neuro Impairments/Disorders - PAIN CLINIC PATIENT Denies: Hx Dementia, Hx Developmental Delay, Hx Migraine, Hx Nerve Disease, Hx Seizures, Hx Spinal Cord Injury, Hx Transient Ischemic Attacks (TIA) Psychiatric History: Denies: Hx Panic Disorder - Surgical History Surgery Procedure, Year, and Place: 2006, 2014 BACK SURGERY; Hx Anesthesia Reactions: No - Immunization History Date of Tetanus Vaccine: Unk Date of Influenza Vaccine: 2015 Infectious Disease History: No Infectious Disease History: Denies: Traveled Outside the US in Last 30 Days - Family History Known Family History: Positive: None - reviewed & noncontributory, Cardiac Disease - [place] , Hypertension, Diabetes, Other - CVA - Social History Alcohol Use: None Hx Substance Use: No Substance Use Type: Reports: None Hx Tobacco Use: Yes Smoking Status (MU): Former Smoker Type: Cigarettes Have You Smoked in the Last Year: No Physical Exam Triage Information Reviewed: Yes Vital Signs On Initial Exam: Initial Vitals Temp Pulse Resp BP Pulse Ox 98.3 F 78 18 174/102 97 12/20/17 16:03 12/20/17 16:03 12/20/17 16:03 12/20/17 16:03 12/20/17 16:03 Vital Signs Reviewed: Yes Appearance: Positive: Well-Appearing, Pain Distress, Obese Skin: Positive: Warm, Skin Color Reflects Adequate Perfusion, Dry Head/Face: Positive: Normal Head/Face Inspection Eyes: Positive: Normal, EOMI ENT: Positive: Hearing grossly normal Respiratory/Lung Sounds: Positive: Breath Sounds Present Cardiovascular: Positive: Pulses are Symmetrical in both Upper and Lower Extremities. Negative: Leg Edema Left, Leg Edema Right Abdomen Description: Positive: Nontender, No Organomegaly, Soft. Negative: Pulsatile Mass Bowel Sounds: Positive: Present Musculoskeletal: Positive: Pain @ - RT QL w/ TTP Neurological: Positive: Alert, Oriented to Person Place, Time, CN Intact II- III. Negative: Sensory/Motor Intact - decreased sensation in Lt foot compared to Rt Psychiatric: Positive: Normal - concerned but calm and pleasant Diagnostics - Vital Signs Vital Signs Temp Pulse Resp BP Pulse Ox 12/20/17 16:03 98.3 F 78 18 174/102 97 - Laboratory Result Diagrams: 12/20/17 16:53 12/20/17 16:53 Lab Statement: Any lab studies that have been ordered have been reviewed, and results considered in the medical decision making process. Back Pain Course/Dx - Course Course Of Treatment: W/u for worsening abscess, hematoma, seroma - signed out to Ashvin Newman pending labs, CT Discharge - Discharge Plan Referrals: Garrett Rios MD [Primary Care Provider] -
[2017-12-20 17:21] LABS: ABS Basophils 0.1 10^3/ul (0-0.2); ABS Eosinophils 0.2 10^3/ul (0-0.6); ABS Lymphocytes 1.8 10^3/ul (1.0-4.8); ABS Monocytes 0.7 10^3/ul (0-0.8); ABS Neutrophils 3.5 10^3/ul (1.5-7.7); ABS Nucleated RBC 0 10^3/ul; Eosinophil % 2.7 % (0-6); Hematocrit 43 % (42-52); Hemoglobin 14.4 g/dl (14.0-18.0); Lymphocyte % 28.8 % (25-47); Mean Corpuscular HGB Conc 33 g/dl (31-36); Mean Corpuscular Hemoglobin 29 pg (27-31); Mean Corpuscular Volume 88 fL (80-94); Mean Platelet Volume 7.4 um3 (7.4-10.4); Nucleated Red Blood Cells % 0; Platelet Count 233 10^3/ul (150-450); Red Blood Count 4.91 10^6/ul (4.0-5.4); Red Cell Distribution Width 14 % (10.5-15); White Blood Count 6.3 10^3/ul (3.5-10.8)
[2017-12-20 17:29] LABS: INR 0.88 (0.77-1.02)
[2017-12-20] MEDS ORDERED: Iohexol 300* (CONTRAST) 10 ML SDV IV ONE ×2 (17:39→17:59)
--- NOTE | 2017-12-20 19:26 | RAD ---
INDICATION: Persistent back pain status post surgery. COMPARISON: Comparison is made with prior CT of the lumbar spine from November 08, 2017. Correlation is also made with a prior MRI of the lumbar spine from August 12, 2016. TECHNIQUE: Contiguous axial sections were obtained beginning above the T12 vertebra and continuing through the L5-S1 disc space. Images were reconstructed in the sagittal and coronal planes. The exam was performed following intravenous contrast enhancement with 150 mL of Omnipaque 300 nonionic contrast. FINDINGS: The patient is status post laminectomy L3-S1 and posterior spinal fusion with pedicle screws L2-L5. The surgical hardware appears intact. No fracture is seen. No significant vertebral endplate erosive changes are seen. Air is noted within the L4-L5 and L5-S1 intervertebral discs which is unchanged from the prior exam likely representing vacuum disc phenomena. At the L1-L2 level there is no evidence for disc bulge or herniation. There are mild hypertrophic changes within the facet joints. Neural foramen appear patent on both sides. The L2-L3 level there is a mild broad-based disc bulge. There appears to be mild spinal canal narrowing. There is mild bilateral neural foraminal narrowing. At the L3-L4 level the spinal canal is not well visualized due to metallic artifact and postsurgical changes and appears similar to the prior study. There appears to be mild neural foraminal narrowing on the right side and moderate neural foraminal narrowing on the left side. At the L4-L5 level the spinal canal is again not well-visualized due to postsurgical changes and metallic artifact and appears similar to the prior study. There is moderate neural foraminal narrowing on the right side and mild neural frontal narrowing on the left side. At the L5-S1 level there is posterior endplate spurring and moderate hypertrophic changes within the facet joints. There is mild to moderate spinal canal narrowing which appears similar to the prior study. There is moderate to severe bilateral neural foraminal narrowing which appears unchanged from the prior study. There is a fluid collection in the midline in the posterior soft tissues superficial to the paraspinous muscles which measures 1.8 x 3.2 x 10.4 cm and appears slightly smaller than on the prior study. This has a thickened rim of soft tissue density which is unchanged. The results of this examination were called to ZHANG Lang. IMPRESSION: 1. POSTSURGICAL CHANGES DESCRIBED. 2. LIMITED EVALUATION OF THE SPINAL CANAL DUE TO METALLIC ARTIFACT AND POSTSURGICAL CHANGES. THE STUDY APPEARS SIMILAR TO THE PRIOR EXAM. THERE IS NEURAL FORAMINAL NARROWING AT MULTIPLE LEVELS NOTED. 3. THERE IS A FLUID COLLECTION IN THE POSTERIOR SOFT TISSUES SLIGHTLY SMALLER MOST CONSISTENT WITH A HEMATOMA OR SEROMA IS LESS LIKELY AN ABSCESS. RECOMMEND CLINICAL CORRELATION. 4. IF THE PATIENT'S SYMPTOMS PERSIST CONSIDER MR IMAGING FOR FURTHER EVALUATION.
[2017-12-20 19:54] VITALS: BP 147/100
--- NOTE | 2017-12-20 21:14 | PN ---
Progress Note - Progress Note Date of Service: 12/20/17 Note: Pt. received in signout by Yani Waters, PAC for lumbar CT scan. Lumbar CT read per radiology: IMPRESSION: 1. POSTSURGICAL CHANGES DESCRIBED. 2. LIMITED EVALUATION OF THE SPINAL CANAL DUE TO METALLIC ARTIFACT AND POSTSURGICAL CHANGES. THE STUDY APPEARS SIMILAR TO THE PRIOR EXAM. THERE IS NEURAL FORAMINAL NARROWING AT MULTIPLE LEVELS NOTED. 3. THERE IS A FLUID COLLECTION IN THE POSTERIOR SOFT TISSUES SLIGHTLY SMALLER MOST CONSISTENT WITH A HEMATOMA OR SEROMA IS LESS LIKELY AN ABSCESS. RECOMMEND CLINICAL CORRELATION. 4. IF THE PATIENT'S SYMPTOMS PERSIST CONSIDER MR IMAGING FOR FURTHER EVALUATION. Blood work is unremarkable. He is afebrile. On re-exam pt. is resting comfortable and back pain has improved after IV morphine. CT scan is similar to prior scan several months ago. Suspicion for abscess is extremely low. Will rx pt. a few days of flexeril and steroids for back pain since this has helped in the past. Pt. will f.u with his PCP and pain management. To return to ER if sxs change or worsen.
== END 2017-12-20 19:53 | disposition home or self-care (01) ==
LOC: ED 15:48
DX: M54.5 Low back pain (principal); I20.9 Angina pectoris, unspecified; I10 Essential (primary) hypertension; Z79.899 Other long term (current) drug therapy; Z87.891 Personal history of nicotine dependence; M79.651 Pain in right thigh
CPT/HCPCS: 36415; 72132; 80053; 83605; 85025; 85610; 85652; 85730; 86140; 96374; 96375; 99283; J2270; J2765; Q9967

== ENCOUNTER 2018-01-14 16:40 | Emergency (ER) | payer OTHER ==
[2018-01-14] MEDS ORDERED: Labetalol IV* 5 MG/ML 20 ML VIAL IV PUSH ONE ×2 (17:04→19:46)
[2018-01-14 17:26] LABS: ABS Basophils 0.1 10^3/ul (0-0.2); ABS Eosinophils 0.2 10^3/ul (0-0.6); ABS Lymphocytes 1.7 10^3/ul (1.0-4.8); ABS Monocytes 0.7 10^3/ul (0-0.8); ABS Neutrophils 2.8 10^3/ul (1.5-7.7); ABS Nucleated RBC 0 10^3/ul; Eosinophil % 3.3 % (0-6); Hematocrit 44 % (42-52); Hemoglobin 14.7 g/dl (14.0-18.0); Lymphocyte % 30.9 % (25-47); Mean Corpuscular HGB Conc 33 g/dl (31-36); Mean Corpuscular Hemoglobin 29 pg (27-31); Mean Corpuscular Volume 88 fL (80-94); Nucleated Red Blood Cells % 0; Platelet Count 226 10^3/ul (150-450); Red Blood Count 5.02 10^6/ul (4.0-5.4); Red Cell Distribution Width 14 % (10.5-15); White Blood Count 5.4 10^3/ul (3.5-10.8)
[2018-01-14 17:46] LABS: EGFR Non-African American 98.7 (>60)
--- NOTE | 2018-01-14 18:10 | RAD ---
HISTORY: Hypertension COMPARISONS: October 13, 2017 VIEWS: 1: frontal portable view of the chest at 5:28 PM FINDINGS: LINES AND TUBES: None. CARDIOMEDIASTINAL SILHOUETTE: The cardiomediastinal silhouette is normal for portable technique. PLEURA: The costophrenic angles are sharp. No pleural abnormalities are noted. LUNG PARENCHYMA: The lungs are clear. ABDOMEN: The upper abdomen is clear. There is no subphrenic gas. BONES AND SOFT TISSUES: No bone or soft tissue abnormalities are noted. IMPRESSION: NO ACTIVE CARDIOPULMONARY DISEASE.
--- NOTE | 2018-01-14 20:45 | ED ---
Genie Wiggins Elizabeth, scribed for Ronni Garcia MD on 01/14/18 at 1711 . HPI Cardiac - HPI Summary HPI Summary: This patient is a 62 year old M BIBA to [facility] upon referral from his primary care physician with a chief complaint of abnormal EKG with new changes since earlier today. The patient rates the pain 0/10 in severity. Symptoms aggravated by nothing. Symptoms alleviated by nothing. Patient reports dizziness, fatigue, edema in the lower extremities. Patient denies N/V/D, chest pain, shortness of breath. The patient has hx of HTN but has been out of his HTN medication for 1 week. The patient denies any prior heart problems. - History of Current Complaint Chief Complaint: EDDysrhythmPalp Stated Complaint: ABNORMAL EKG FROM DR OFFICE Time Seen by Provider: 01/14/18 16:55 Hx Obtained From: Patient Onset/Duration: Started Hours Ago, Atraumatic, Still Present Timing: Constant Initial Severity: Mild Current Severity: Mild Pain Intensity: 0 Pain Scale Used: 0-10 Numeric Aggravating Factor(s): Nothing Alleviating Factor(s): Nothing Associated Signs and Symptoms: Positive: Dizziness, Calf Pain/Swelling, Edema, Other: - fatigue - Additional Pertinent History Primary Care Physician: [id number] - Allergy/Home Medications Allergies/Adverse Reactions: Allergies Allergy/AdvReac Type Severity Reaction Status Date / Time No Known Allergies Allergy Verified 11/11/17 22:27 PMH/Surg Hx/FS Hx/Imm Hx Endocrine/Hematology History: Denies: Hx Anticoagulant Therapy, Hx Diabetes, Hx Anemia, Hx Unexplained Bleeding Cardiovascular History: Reports: Hx Angina, Hx Hypertension - ON MEDS Denies: Hx Aneurysm, Hx Angioplasty, Hx Auto Implanted Cardiovert Defib, Hx Cardiac Arrest, Hx Cardiomegaly, Hx Congenital Heart Disease, Hx Congestive Heart Failure, Hx Coronary Artery Disease, Hx Deep Vein Thrombosis, Hx Myocardial Infarction, Hx Pacemaker/ICD, Hx Peripheral Vascular Disease, Hx Rheumatic Fever, Hx Syncope, Hx Valvular Heart Disease, Other Cardiovascular Problems/Disorders History: Denies: Hx Renal Disease Musculoskeletal History: Reports: Hx Back Problems - back surgeries x2 Denies: Hx Arthritis, Hx Bursitis, Hx Congenital Bone Abnormalities, Hx Fibromyalgia, Hx Gout, Hx Orthopedic Injury, Hx Osteoporosis, Hx Scoliosis, Hx Tendonitis, Other Musculoskeletal History Sensory History: Reports: Hx Contacts or Glasses - glasses Denies: Hx Cataracts, Hx Eye Injury, Hx Eye Prosthesis, Hx Glaucoma, Hx Legally Blind, Hx Macular Degeneration, Hx Vision Problem, Hx Deafness, Hx Hearing Aid, Other Sensory Impairments Opthamlomology History: Reports: Hx Contacts or Glasses - glasses Denies: Hx Cataracts, Hx Eye Injury, Hx Eye Prosthesis, Hx Glaucoma, Hx Legally Blind, Hx Macular Degeneration, Hx Vision Problem, Other Sensory Impairments Neurological History: Reports: Hx Headaches, Other Neuro Impairments/Disorders - PAIN CLINIC PATIENT Denies: Hx Dementia, Hx Developmental Delay, Hx Migraine, Hx Nerve Disease, Hx Seizures, Hx Spinal Cord Injury, Hx Transient Ischemic Attacks (TIA) Psychiatric History: Denies: Hx Panic Disorder - Surgical History Surgery Procedure, Year, and Place: 2006, 2014 BACK SURGERY; Hx Anesthesia Reactions: No - Immunization History Date of Tetanus Vaccine: Unk Date of Influenza Vaccine: 2015 Infectious Disease History: No Infectious Disease History: Denies: Traveled Outside the [place] in Last 30 Days - Family History Known Family History: Positive: Cardiac Disease - [place] , Hypertension, Diabetes, Other - CVA - Social History Alcohol Use: None Hx Substance Use: No Substance Use Type: Reports: None Hx Tobacco Use: Yes Smoking Status (MU): Former Smoker Type: Cigarettes Have You Smoked in the Last Year: No Review of Systems Positive: Fatigue Negative: Chest Pain Negative: Shortness Of Breath Negative: Vomiting, Diarrhea, Nausea Positive: Edema - in lower extremities Neurological: Other - positive dizziness All Other Systems Reviewed And Are Negative: Yes Physical Exam - Summary Physical Exam Summary: VITAL SIGNS: Reviewed. GENERAL: Patient is a well-developed and nourished MALE who is lying comfortable in the stretcher. Patient is not in any acute respiratory distress. HEAD AND FACE: No signs of trauma. No ecchymosis, hematomas or skull depressions. No sinus tenderness. EYES: PERRLA, EOMI x 2, No injected conjunctiva, no nystagmus. EARS: Hearing grossly intact. Ear canals and tympanic membranes are within normal limits. MOUTH: Oropharynx within normal limits. NECK: Supple, trachea is midline, no adenopathy, no JVD, no carotid bruit, no c- spine tenderness, neck with full ROM. CHEST: Symmetric, no tenderness at palpation LUNGS: Clear to auscultation bilaterally. No wheezing or crackles. CVS: Regular rate and rhythm, S1 and S2 present, no murmurs or gallops appreciated. ABDOMEN: Soft, non-tender. No signs of distention. No rebound no guarding, and no masses palpated. Bowel sounds are normal. EXTREMITIES: FROM in all major joints, 1+ pitting edema in lower extremities, no cyanosis or clubbing. NEURO: Alert and oriented x 3. No acute neurological deficits. Speech is normal and follows commands. SKIN: Dry and warm Triage Information Reviewed: Yes Vital Signs On Initial Exam: Initial Vitals Temp Pulse Resp BP Pulse Ox 97.9 F 62 18 188/117 95 01/14/18 17:00 01/14/18 17:00 01/14/18 17:00 01/14/18 17:00 01/14/18 17:00 Vital Signs Reviewed: Yes Diagnostics - Vital Signs Vital Signs Temp Pulse Resp BP Pulse Ox 01/14/18 17:00 97.9 F 62 18 188/117 95 - Laboratory Lab Results: Lab Results 01/14/18 01/14/18 01/14/18 Range/Units 17:07 17:07 17:07 WBC 5.4 (3.5-10.8) 10^3/ul RBC 5.02 (4.0-5.4) 10^6/ul Hgb 14.7 (14.0-18.0) g/dl Hct 44 (42-52) % MCV 88 (80-94) fL MCH 29 (27-31) pg MCHC 33 (31-36) g/dl RDW 14 (10.5-15) % Plt Count 226 (150-450) 10^3/ul MPV 7.0 L (7.4-10.4) um3 Neut % (Auto) 52.4 (38-83) % Lymph % (Auto) 30.9 (25-47) % Dixie % (Auto) 12.2 H (0-7) % Eos % (Auto) 3.3 (0-6) % Baso % (Auto) 1.2 (0-2) % Absolute Neuts (auto) 2.8 (1.5-7.7) 10^3/ul Absolute Lymphs (auto) 1.7 (1.0-4.8) 10^3/ul Absolute Monos (auto) 0.7 (0-0.8) 10^3/ul Absolute Eos (auto) 0.2 (0-0.6) 10^3/ul Absolute Basos (auto) 0.1 (0-0.2) 10^3/ul Absolute Nucleated RBC 0 10^3/ul Nucleated RBC % 0 Sodium 135 L (139-145) mmol/L Potassium 3.9 (3.5-5.0) mmol/L Chloride 101 (101-111) mmol/L Carbon Dioxide 28 (22-32) mmol/L Anion Gap 6 (2-11) mmol/L BUN 5 L (6-24) mg/dL Creatinine 0.79 (0.67-1.17) mg/dL Est GFR ( Amer) 127.0 (>60) Est GFR (Non-Af Amer) 98.7 (>60) BUN/Creatinine Ratio 6.3 L (8-20) Glucose 93 (70-100) mg/dL Lactic Acid 1.3 (0.5-2.0) mmol/L Calcium 9.0 (8.6-10.3) mg/dL Total Bilirubin 0.70 (0.2-1.0) mg/dL AST 26 (13-39) U/L ALT 24 (7-52) U/L Alkaline Phosphatase 79 (34-104) U/L Total Creatine Kinase 471 H (10-223) U/L CK-MB (CK-2) 15.4 H (0.6-6.3) ng/mL Troponin I 0.01 (<0.04) ng/mL B-Natriuretic Peptide ( - 100) pg/mL Total Protein 6.8 (6.4-8.9) g/dL Albumin 4.0 (3.2-5.2) g/dL Globulin 2.8 (2-4) g/dL Albumin/Globulin Ratio 1.4 (1-3) 01/14/18 Range/Units 17:07 WBC (3.5-10.8) 10^3/ul RBC (4.0-5.4) 10^6/ul Hgb (14.0-18.0) g/dl Hct (42-52) % MCV (80-94) fL MCH (27-31) pg MCHC (31-36) g/dl RDW (10.5-15) % Plt Count (150-450) 10^3/ul MPV (7.4-10.4) um3 Neut % (Auto) (38-83) % Lymph % (Auto) (25-47) % Dixie % (Auto) (0-7) % Eos % (Auto) (0-6) % Baso % (Auto) (0-2) % Absolute Neuts (auto) (1.5-7.7) 10^3/ul Absolute Lymphs (auto) (1.0-4.8) 10^3/ul Absolute Monos (auto) (0-0.8) 10^3/ul Absolute Eos (auto) (0-0.6) 10^3/ul Absolute Basos (auto) (0-0.2) 10^3/ul Absolute Nucleated RBC 10^3/ul Nucleated RBC % Sodium (139-145) mmol/L Potassium (3.5-5.0) mmol/L Chloride (101-111) mmol/L Carbon Dioxide (22-32) mmol/L Anion Gap (2-11) mmol/L BUN (6-24) mg/dL Creatinine (0.67-1.17) mg/dL Est GFR ( Amer) (>60) Est GFR (Non-Af Amer) (>60) BUN/Creatinine Ratio (8-20) Glucose (70-100) mg/dL Lactic Acid (0.5-2.0) mmol/L Calcium (8.6-10.3) mg/dL Total Bilirubin (0.2-1.0) mg/dL AST (13-39) U/L ALT (7-52) U/L Alkaline Phosphatase (34-104) U/L Total Creatine Kinase (10-223) U/L CK-MB (CK-2) (0.6-6.3) ng/mL Troponin I (<0.04) ng/mL B-Natriuretic Peptide 10 ( - 100) pg/mL Total Protein (6.4-8.9) g/dL Albumin (3.2-5.2) g/dL Globulin (2-4) g/dL Albumin/Globulin Ratio (1-3) Result Diagrams: 01/14/18 17:07 01/14/18 17:07 Lab Statement: Any lab studies that have been ordered have been reviewed, and results considered in the medical decision making process. - Radiology CXR Xray Interpretation: No Acute Changes - IMPRESSION: NO ACTIVE CARDIOPULMONARY DISEASE. Dr. Garcia has reviewed this report. Radiology Interpretation Completed By: Radiologist - EKG 17:12 Cardiac Rate: NL - at 61 BPM EKG Rhythm: Sinus Rhythm EKG Interpretation: NSR, normal axis, no ST elevations EKG Comparison: No Significant Change - from 11/11/17 Disposition - Course Assessment/Plan: This patient is a 62-year-old male who presents to the emergency room after he went to the primary care physicians office for a routine visit and he noticed that he had high blood pressure and as per PMD an abnormal EKG. Patient has no complaints. He denies any chest pain, shortness of breath, palpitations, dizziness, or feeling that he is going to pass out. He reports that he is not taking his medications for hypertension because he ran out of them. Blood test results without any significant abnormality. EKG is a is a normal sinus rhythm without any ST elevations. Chest x-ray impression no acute pathology. In the ER course the patient was given labetalol and his blood pressure improved. Right now before discharge the blood pressure is 148/95. The patient continues to be asymptomatic. The patient was given a prescription for metoprolol XL 75 mg. He will be discharged home with follow-up with PCP. I discussed all the findings and test results with the patient. Patient was instructed to return to the emergency room immediately if any of the symptoms return or worsens. Plan of care was discussed with the patient and understands and agrees. All questions were answered at patient satisfaction. There were no further complaints or concerns. Lung exam before discharge: CTA B/L. Good air exchange. No wheezing or crackles heard. CVS: S1 and S2 present. No murmurs appreciated. Patient is alert and oriented x 3. Patient is hemodynamically stable. Patient will be discharged home with follow up PCP in the next 2-3 days - Diagnoses Provider Diagnoses: Uncontrolled hypertension Discharge - Sign-Out/Discharge Documenting (check all that apply): Discharge/Admit/Transfer - Discharge Plan Condition: Stable Disposition: HOME Prescriptions: Metoprolol Succinate XL TAB* [Toprol XL TAB*] 75 mg PO DAILY #30 tab.xl Patient Education Materials: DASH Eating Plan (ED), Low-Sodium Diet (ED), Hypertension (ED) Referrals: Garrett Rios MD [Primary Care Provider] - Additional Instructions: Patient will be discharged home with follow-up with PCP. She was instructed to take medication as indicated. Decrease salt intake. The documentation as recorded by the Genie mack Elizabeth accurately reflects the service I personally performed and the decisions made by me, Ronni Garcia MD.
[2018-01-14 21:01] VITALS: BP 148/95
== END 2018-01-14 20:58 | disposition home or self-care (01) ==
LOC: ED 16:40
DX: I10 Essential (primary) hypertension (principal); Z87.891 Personal history of nicotine dependence
CPT/HCPCS: 36415; 71045; 80053; 82550; 82553; 83605; 83880; 84484; 85025; 93005; 96374; 96376; 99284

== ENCOUNTER 2018-03-20 13:27 | Emergency (ER) | payer MEDICARE, MEDICAID ==
[2018-03-20 15:42] LABS: EGFR Non-African American 85.8 (>60)
[2018-03-20 15:49] LABS: ABS Basophils 0.1 10^3/ul (0-0.2); ABS Eosinophils 0.1 10^3/ul (0-0.6); ABS Lymphocytes 1.6 10^3/ul (1.0-4.8); ABS Monocytes 0.6 10^3/ul (0-0.8); ABS Neutrophils 3.1 10^3/ul (1.5-7.7); ABS Nucleated RBC 0 10^3/ul; Eosinophil % 2.4 % (0-6); Hematocrit 42 % (42-52); Hemoglobin 13.8 g/dl (14.0-18.0); Lymphocyte % 28.8 % (25-47); Mean Corpuscular HGB Conc 33 g/dl (31-36); Mean Corpuscular Hemoglobin 29 pg (27-31); Mean Corpuscular Volume 89 fL (80-94); Mean Platelet Volume 7.2 um3 (7.4-10.4); Nucleated Red Blood Cells % 0; Platelet Count 242 10^3/ul (150-450); Red Blood Count 4.71 10^6/ul (4.00-5.40); Red Cell Distribution Width 14 % (10.5-15); White Blood Count 5.5 10^3/ul (3.5-10.8)
--- NOTE | 2018-03-20 16:14 | RAD ---
Indication: Leg swelling. 2 views of the chest including dual energy PA views demonstrate no mediastinal shift. Heart is of normal size and configuration. Hyperinflated lung angel are noted. No evidence of alveolar consolidation is noted. IMPRESSION: No active cardiopulmonary disease is noted.
[2018-03-20 17:02] VITALS: BP 180/99
--- NOTE | 2018-03-20 17:11 | ED ---
Lower Extremity - HPI Summary HPI Summary: Patient is a 63-year-old male with history of hypertension without CHF or diabetes presenting to the ED with complaint of bilateral lower extremity edema. He noticed this this morning when awakening that he had bilateral tingling with mild to moderate amount of swelling. He denies any diuretics. He states he is fairly bedbound as he has chronic back pain and does not walk frequently. However he does ambulate daily. He remains independent. He denies any shortness of breath or chest pain. Denies any swelling otherwise. Denies any excess salt intake or differing diet. Pulses +2 bilaterally. Pedal pulses and posterior tibial pulses. - History of Current Complaint Chief Complaint: EDExtremityLower Stated Complaint: LT ANKLE SWELLING/FOOT NUMBNESS Time Seen by Provider: 03/20/18 14:56 Hx Obtained From: Patient Mechanism Of Injury: Unknown Onset of Pain: Hours Onset/Duration: Hours Severity Initially: Mild Severity Currently: Mild Pain Intensity: 3 Pain Scale Used: 0-10 Numeric Timing: Constant Location: Is Discrete @ - Bilateral lower extremities Associated Signs And Symptoms: Positive: Swelling. Negative: Redness, Bruising Alleviating Factor(s): Rest Able to Bear Weight: Yes - Risk Factors Gout Risk Factors: Age Over 40, Male DVT Risk Factors: Smoking, Recent Period Of Bedrest - Allergies/Home Medications Allergies/Adverse Reactions: Allergies Allergy/AdvReac Type Severity Reaction Status Date / Time No Known Allergies Allergy Verified 03/20/18 13:33 PMH/Surg Hx/FS Hx/Imm Hx Previously Healthy: Yes Endocrine/Hematology History: Denies: Hx Anticoagulant Therapy, Hx Diabetes, Hx Anemia, Hx Unexplained Bleeding Cardiovascular History: Reports: Hx Angina, Hx Hypertension - ON MEDS Denies: Hx Aneurysm, Hx Angioplasty, Hx Auto Implanted Cardiovert Defib, Hx Cardiac Arrest, Hx Cardiomegaly, Hx Congenital Heart Disease, Hx Congestive Heart Failure, Hx Coronary Artery Disease, Hx Deep Vein Thrombosis, Hx Myocardial Infarction, Hx Pacemaker/ICD, Hx Peripheral Vascular Disease, Hx Rheumatic Fever, Hx Syncope, Hx Valvular Heart Disease, Other Cardiovascular Problems/Disorders History: Denies: Hx Renal Disease Musculoskeletal History: Reports: Hx Back Problems - back surgeries x2 Denies: Hx Arthritis, Hx Bursitis, Hx Congenital Bone Abnormalities, Hx Fibromyalgia, Hx Gout, Hx Orthopedic Injury, Hx Osteoporosis, Hx Scoliosis, Hx Tendonitis, Other Musculoskeletal History Sensory History: Reports: Hx Contacts or Glasses - glasses Denies: Hx Cataracts, Hx Eye Injury, Hx Eye Prosthesis, Hx Glaucoma, Hx Legally Blind, Hx Macular Degeneration, Hx Vision Problem, Hx Deafness, Hx Hearing Aid, Other Sensory Impairments Opthamlomology History: Reports: Hx Contacts or Glasses - glasses Denies: Hx Cataracts, Hx Eye Injury, Hx Eye Prosthesis, Hx Glaucoma, Hx Legally Blind, Hx Macular Degeneration, Hx Vision Problem, Other Sensory Impairments Neurological History: Reports: Hx Headaches, Other Neuro Impairments/Disorders - PAIN CLINIC PATIENT Denies: Hx Dementia, Hx Developmental Delay, Hx Migraine, Hx Nerve Disease, Hx Seizures, Hx Spinal Cord Injury, Hx Transient Ischemic Attacks (TIA) Psychiatric History: Denies: Hx Panic Disorder - Surgical History Surgery Procedure, Year, and Place: 2006, 2014 BACK SURGERY; Hx Anesthesia Reactions: No - Immunization History Date of Tetanus Vaccine: Unk Date of Influenza Vaccine: 2015 Hx Pertussis Vaccination: No Immunizations Up to Date: Unable to Obtain/Confirm Infectious Disease History: No Infectious Disease History: Denies: Traveled Outside the [place] in Last 30 Days - Family History Known Family History: Positive: None - reviewed & noncontributory, Cardiac Disease - [place] , Hypertension, Diabetes, Other - CVA - Social History Occupation: Unemployed Lives: Alone Alcohol Use: None Hx Substance Use: No Substance Use Type: Reports: None Hx Tobacco Use: Yes Smoking Status (MU): Former Smoker Type: Cigarettes Have You Smoked in the Last Year: No Review of Systems Constitutional: Negative Negative: Fever, Chills, Fatigue, Skin Diaphoresis Negative: Palpitations, Chest Pain Negative: Shortness Of Breath, Cough Genitourinary: Negative Positive: no symptoms reported, see HPI Positive: Edema - mild bilateral lower +1 Skin: Negative Negative: Rash, Bruising Positive: Numbness - bilateral feet. Negative: Weakness, Paresthesia All Other Systems Reviewed And Are Negative: Yes Physical Exam Triage Information Reviewed: Yes Vital Signs On Initial Exam: Initial Vitals Temp Pulse Resp BP Pulse Ox 97.6 F 70 18 162/104 97 03/20/18 13:30 03/20/18 13:30 03/20/18 13:30 03/20/18 13:30 03/20/18 13:30 Vital Signs Reviewed: Yes Appearance: Positive: Well-Appearing, Well-Nourished Skin: Positive: Warm, Skin Color Reflects Adequate Perfusion Head/Face: Positive: Normal Head/Face Inspection Eyes: Positive: EOMI, AIDA, Conjunctiva Clear Neck: Positive: Supple, No Lymphadenopathy Respiratory/Lung Sounds: Positive: Clear to Auscultation, Breath Sounds Present Cardiovascular: Positive: Pulses are Symmetrical in both Upper and Lower Extremities Musculoskeletal: Positive: Strength/ROM Intact, Edema Left - +1, Edema Right - + 1 Neurological: Positive: Sensory/Motor Intact, Alert, Oriented to Person Place, Time, Speech Normal Psychiatric: Positive: Normal, Affect/Mood Appropriate AVPU Assessment: Alert Diagnostics - Vital Signs Vital Signs Temp Pulse Resp BP Pulse Ox 03/20/18 17:01 98.5 F 63 16 180/99 99 03/20/18 13:30 97.6 F 70 18 162/104 97 - Laboratory Lab Results: Lab Results 03/20/18 03/20/18 03/20/18 Range/Units 15:19 15:19 15:19 WBC 5.5 (3.5-10.8) 10^3/ul RBC 4.71 (4.00-5.40) 10^6/ul Hgb 13.8 L (14.0-18.0) g/dl Hct 42 (42-52) % MCV 89 (80-94) fL MCH 29 (27-31) pg MCHC 33 (31-36) g/dl RDW 14 (10.5-15) % Plt Count 242 (150-450) 10^3/ul MPV 7.2 L (7.4-10.4) um3 Neut % (Auto) 57.1 (38-83) % Lymph % (Auto) 28.8 (25-47) % Hardin % (Auto) 10.6 H (0-7) % Eos % (Auto) 2.4 (0-6) % Baso % (Auto) 1.1 (0-2) % Absolute Neuts (auto) 3.1 (1.5-7.7) 10^3/ul Absolute Lymphs (auto) 1.6 (1.0-4.8) 10^3/ul Absolute Monos (auto) 0.6 (0-0.8) 10^3/ul Absolute Eos (auto) 0.1 (0-0.6) 10^3/ul Absolute Basos (auto) 0.1 (0-0.2) 10^3/ul Absolute Nucleated RBC 0 10^3/ul Nucleated RBC % 0 Sodium 135 (135-145) mmol/L Potassium 4.2 (3.5-5.0) mmol/L Chloride 101 (101-111) mmol/L Carbon Dioxide 28 (22-32) mmol/L Anion Gap 6 (2-11) mmol/L BUN 8 (6-24) mg/dL Creatinine 0.89 (0.67-1.17) mg/dL Est GFR ( Amer) 103.8 (>60) Est GFR (Non-Af Amer) 85.8 (>60) BUN/Creatinine Ratio 9.0 (8-20) Glucose 100 (70-100) mg/dL Calcium 9.3 (8.6-10.3) mg/dL Total Bilirubin 0.50 (0.2-1.0) mg/dL AST 30 (13-39) U/L ALT 26 (7-52) U/L Alkaline Phosphatase 61 (34-104) U/L B-Natriuretic Peptide 8 ( - 100) pg/mL Total Protein 6.7 (6.4-8.9) g/dL Albumin 4.0 (3.2-5.2) g/dL Globulin 2.7 (2-4) g/dL Albumin/Globulin Ratio 1.5 (1-3) Result Diagrams: 03/20/18 15:19 03/20/18 15:19 Lab Statement: Any lab studies that have been ordered have been reviewed, and results considered in the medical decision making process. Lower Extremity Course/Dx - Course Course Of Treatment: Due to bilateral leg swelling, DVT is not likely, however, not completely ruled out. However, Homans sign is negative, no erythema or warmth to the bilateral lower extremities. There is a mild amount of swelling to the bilateral ankles without swelling up to the ankle or calves. No pitting edema is noted. Denies any shortness of breath or chest pain. Labs obtained and are WNL including a BNP at 8. X-ray obtained which shows normal sinus rhythm with a rate of 60. He states he takes pain medications as well as hypertension medications daily. He is discharged with instructions for compression, elevation of the legs, follow-up with PCP. - Diagnoses Provider Diagnoses: Edema, lower extremity Discharge - Sign-Out/Discharge Documenting (check all that apply): Patient Departure - Discharge Plan Condition: Stable Disposition: HOME Patient Education Materials: Leg Edema (ED) Referrals: Garrett Rios MD [Primary Care Provider] - Additional Instructions: Please follow-up with your doctor LAVERNE Wear compression stockings Elevate the legs as much as possible, use pillows Continue to exercise or walk frequently and did not remain bed bound - Billing Disposition and Condition Condition: STABLE Disposition: Home
== END 2018-03-20 17:01 | disposition home or self-care (01) ==
LOC: ED 13:27
DX: R60.0 Localized edema (principal); R20.0 Anesthesia of skin; I10 Essential (primary) hypertension; Z87.891 Personal history of nicotine dependence
CPT/HCPCS: 36415; 71046; 80053; 83880; 85025; 93005; 99282

== ENCOUNTER 2018-07-13 16:21 | Emergency (ER) | payer BC, MEDICARE, OTHER ==
[2018-07-13] MEDS ORDERED: Aspirin 81 mg CHEW TAB* 81 MG TAB.CHEW PO ONE (16:51)
[2018-07-13] MEDS ORDERED: Nitroglycerin 0.2 MG/HR PATCH* (5 MG) TRANSDERM ONE (16:52)
[2018-07-13] MEDS: Nitroglycerin TAB 0.4 MG* 0.4 MG TAB SL ONE ×3 (17:03→17:26)
[2018-07-13 17:14] LABS: ABS Basophils 0.1 10^3/ul (0-0.2); ABS Eosinophils 0.1 10^3/ul (0-0.6); ABS Lymphocytes 1.7 10^3/ul (1.0-4.8); ABS Monocytes 0.6 10^3/ul (0-0.8); ABS Neutrophils 4.2 10^3/ul (1.5-7.7); ABS Nucleated RBC 0 10^3/ul; Eosinophil % 1.3 %; Hematocrit 47 % (42-52); Hemoglobin 15.4 g/dl (14.0-18.0); Mean Corpuscular HGB Conc 33 g/dl (31-36); Mean Corpuscular Hemoglobin 30 pg (27-31); Mean Corpuscular Volume 90 fL (80-94); Mean Platelet Volume 7.5 fL (7.4-10.4); Nucleated Red Blood Cells % 0.1; Platelet Count 219 10^3/ul (150-450); Red Blood Count 5.19 10^6/ul (4.00-5.40); Red Cell Distribution Width 14 % (10.5-15); White Blood Count 6.7 10^3/ul (3.5-10.8)
--- NOTE | 2018-07-13 17:18 | ED ---
HPI Chest Pain - HPI Summary HPI Summary: Patient is a 63 y/o M w/ c/o left sided chest pain with radiation to left shoulder and left neck. He also endorses SOB. Patient states that he experienced an "electric shock" at his chest earlier this afternoon. He states he does not have defibrillator in chest. Patient states he ignored this initially, chest pain became a squeezing pain. He denies dizziness until he entered ED room. In room, patient describes chest pain as dull at present. In room, he rates pain 6/10, denies pain with breathing. He denies pain at BUE, VEE. Pedal edema is reported. No PMHx of diabetes, PMHx of HTN is endorsed. He states he is not on BP medication as he cannot afford it. Fever, chills, erythema of eyes, sore throat, cough, abdominal pain, vomiting, nausea, dysuria, hematuria, myalgia, rash are not reported. On triage, nothing is noted to aggravate/alleviate Sx. Home medications and allergies are reviewed. - History of Current Complaint Chief Complaint: EDChestPainROMI Time Seen by Provider: 07/13/18 16:42 Hx Obtained From: Patient Onset/Duration: Started Hours Ago, Still Present Timing: Constant, Lasting Hours Current Severity: Severe - 7/10 Pain Intensity: 7 Pain Scale Used: 0-10 Numeric - 7/10 Chest Pain Location: Left Anterior Chest Pain Radiates: Yes Chest Pain Radiates To:: Shoulder - left, Neck - left side Character: Dull/Aching, Pressure/Squeezing, Other: - "electric shock" Aggravating Factor(s): Nothing Alleviating Factor(s): Nothing Associated Signs and Symptoms: Positive: Chest Pain, Dizziness, Shortness of Breath, Swelling - Pedal, Edema - pedal, Other: - Fever, chills, erythema of eyes, sore throat, cough, abdominal pain, vomiting, nausea, dysuria, hematuria, myalgia, rash, VEE, pain at BUE are not reported.. Negative: Headaches, Fever, Chills, Nausea, Cough, Productive Cough, Nonproductive Cough, Abdominal Pain, Vomiting - Additional Pertinent History Primary Care Physician: [id number] - Allergy/Home Medications Allergies/Adverse Reactions: Allergies Allergy/AdvReac Type Severity Reaction Status Date / Time No Known Allergies Allergy Verified 03/20/18 13:33 Home Medications: Home Medications NK [No Home Medications Reported] 07/13/18 [History Confirmed 07/13/18] PMH/Surg Hx/FS Hx/Imm Hx Endocrine/Hematology History: Denies: Hx Anticoagulant Therapy, Hx Diabetes, Hx Anemia, Hx Unexplained Bleeding Cardiovascular History: Reports: Hx Angina, Hx Hypertension - ON MEDS Denies: Hx Aneurysm, Hx Angioplasty, Hx Auto Implanted Cardiovert Defib, Hx Cardiac Arrest, Hx Cardiomegaly, Hx Congenital Heart Disease, Hx Congestive Heart Failure, Hx Coronary Artery Disease, Hx Deep Vein Thrombosis, Hx Myocardial Infarction, Hx Pacemaker/ICD, Hx Peripheral Vascular Disease, Hx Rheumatic Fever, Hx Syncope, Hx Valvular Heart Disease, Other Cardiovascular Problems/Disorders History: Denies: Hx Renal Disease Musculoskeletal History: Reports: Hx Back Problems - back surgeries x2 Denies: Hx Arthritis, Hx Bursitis, Hx Congenital Bone Abnormalities, Hx Fibromyalgia, Hx Gout, Hx Orthopedic Injury, Hx Osteoporosis, Hx Scoliosis, Hx Tendonitis, Other Musculoskeletal History Sensory History: Reports: Hx Contacts or Glasses - glasses Denies: Hx Cataracts, Hx Eye Injury, Hx Eye Prosthesis, Hx Glaucoma, Hx Legally Blind, Hx Macular Degeneration, Hx Vision Problem, Hx Deafness, Hx Hearing Aid, Other Sensory Impairments Opthamlomology History: Reports: Hx Contacts or Glasses - glasses Denies: Hx Cataracts, Hx Eye Injury, Hx Eye Prosthesis, Hx Glaucoma, Hx Legally Blind, Hx Macular Degeneration, Hx Vision Problem, Other Sensory Impairments Neurological History: Reports: Hx Headaches, Other Neuro Impairments/Disorders - PAIN CLINIC PATIENT Denies: Hx Dementia, Hx Developmental Delay, Hx Migraine, Hx Nerve Disease, Hx Seizures, Hx Spinal Cord Injury, Hx Transient Ischemic Attacks (TIA) Psychiatric History: Denies: Hx Panic Disorder - Surgical History Surgery Procedure, Year, and Place: 2006, 2014 BACK SURGERY; Hx Anesthesia Reactions: No - Immunization History Date of Tetanus Vaccine: Unk Date of Influenza Vaccine: 2015 Infectious Disease History: No Infectious Disease History: Denies: Traveled Outside the [place] in Last 30 Days - Family History Known Family History: Positive: Cardiac Disease - [place] , Hypertension, Diabetes, Other - CVA - Social History Alcohol Use: Occasionally Hx Substance Use: No Substance Use Type: Reports: None Hx Tobacco Use: Yes Smoking Status (MU): Former Smoker Type: Cigarettes Have You Smoked in the Last Year: No Review of Systems Negative: Fever, Chills Negative: Erythema Negative: Sore Throat Positive: Chest Pain Positive: Shortness Of Breath. Negative: Cough Negative: Abdominal Pain, Vomiting, Nausea Negative: dysuria, hematuria Positive: Myalgia - POSITIVE - PAIN AT LEFT SHOULDER, LEFT SIDE OF NECK; NEGATIVE - PAIN AT BUE, Edema - pedal Negative: Rash Neurological: Other - POSITIVE - DIZZINESS Negative: Headache All Other Systems Reviewed And Are Negative: Yes Physical Exam - Summary Physical Exam Summary: Constitutional: Well-developed, Well-nourished, Alert. (-) Distressed Skin: Warm, Dry HENT: Normocephalic; Atraumatic Eyes: Conjunctiva normal Neck: Musculoskeletal ROM normal neck. (-) JVD, (-) Stridor, (-) Tracheal deviation Cardio: Rhythm regular, rate normal, Heart sounds normal; Intact distal pulses; The pedal pulses are 2+ and symmetric. Radial pulses are 2+ and symmetric. (-) Murmur Pulmonary/Chest wall: Effort normal. (-) Respiratory distress, (-) Wheezes, (-) Rales Abd: Soft, (-) epigastric tenderness, (-) Distension, (-) Guarding, (-) Rebound Musculoskeletal: (-) Edema Lymph: (-) Cervical adenopathy Neuro: Alert, Oriented x3 Psych: Mood and affect Normal Triage Information Reviewed: Yes Vital Signs On Initial Exam: Initial Vitals Temp Pulse Resp BP Pulse Ox 98.5 F 69 18 200/120 97 07/13/18 16:25 07/13/18 16:25 07/13/18 16:25 07/13/18 16:25 07/13/18 16:25 Vital Signs Reviewed: Yes Diagnostics - Vital Signs Vital Signs Temp Pulse Resp BP Pulse Ox 07/13/18 16:25 98.5 F 69 18 200/120 97 - Laboratory Result Diagrams: 07/13/18 17:06 07/13/18 17:06 Lab Statement: Any lab studies that have been ordered have been reviewed, and results considered in the medical decision making process. - Radiology CXR Radiology Interpretation Completed By: Radiologist Summary of Radiographic Findings: CXR IMPRESSION: #. No evidence for acute intrathoracic disease. THIS REPORT WAS REVIEWED BY ED PHYSICIAN. - EKG 1640 Cardiac Rate: NL - rate of 65 bpm EKG Rhythm: Sinus Rhythm Summary of EKG Findings: EKG showed sinus rhythm with rate of 65 BPM, no STEMI. Chest Pain Course/Dx - Course Course Of Treatment: Patient is a 63 y/o M w/ c/o left sided chest pain with radiation to left shoulder and left neck. He also endorses SOB. Patient states that he experienced an "electric shock" at his chest earlier this afternoon. He states he does not have defibrillator in chest. Patient states he ignored this initially, chest pain became a squeezing pain. He denies dizziness until he entered ED room. In room, patient describes chest pain as dull at present. In room, he rates pain 6/10, denies pain with breathing. He denies pain at BUE, VEE. Pedal edema is reported. No PMHx of diabetes, PMHx of HTN is endorsed. He states he is not on BP medication as he cannot afford it. Physical exam is unremarkable. EKG showed sinus rhythm with rate of 65 BPM, no STEMI. CXR IMPRESSION: #. No evidence for acute intrathoracic disease. During ED course, patient received nitroglycerin 5 mg patch, nitroglycerin tab 0.4 mg, ASA 324 mg , and apresoline 5 mg IV. Patient was signed out to Dr. Cheney pending labs. - Diagnoses Provider Diagnoses: Chest pain Discharge - Sign-Out/Discharge Documenting (check all that apply): Sign-Out Patient Signing out patient TO: Everardo Cheney Receiving patient FROM: Raphael Govea - Discharge Plan Condition: Stable Disposition: AGAINST MEDICAL ADVICE Patient Education Materials: Chest Pain (ED) Referrals: Garrett Rios MD [Primary Care Provider] - Additional Instructions: Rest at home until you are cleared by your primary doctor or jig worker. If you are not already taking aspirin, start taking a baby aspirin daily. - Billing Disposition and Condition Condition: STABLE Disposition: Against Medical Advice - Attestation Statements Document Initiated by Janet: Yes Documenting Scribe: ARIC HUERTA Provider For Whom Janet is Documenting (Include Credential): RAPHAEL GOVEA MD Scribe Attestation: ARIC Wiggins , scribed for RAPHAEL GOVEA MD on 07/22/18 at 1252. Scribe Documentation Reviewed: Yes Provider Attestation: The documentation as recorded by the ARIC mack accurately reflects the service I personally performed and the decisions made by me, RAPHAEL GOVEA MD Status of Scribe Document: Viewed
[2018-07-13] MEDS ORDERED: hydrALAZINE IV* 20 MG/ML VIAL IV SLOW PU ONE (17:29)
[2018-07-13 17:36] LABS: EGFR Non-African American 98.4 (>60)
[2018-07-13] MEDS ORDERED: Acetaminophen TAB* 325 MG PO ONE (17:54)
--- NOTE | 2018-07-13 17:56 | ED ---
Progress - Progress Note Progress Note: Patient was received as a sign out from Dr. Govea to Dr. Cheney at 1730 pending labs. Labs showed 134 sodium, trop 0. Re-Evaluation - Re-Evaluation First Eval Re-Evaluation Time: 17:58 Change: Unchanged Course/Dx - Course Course Of Treatment: Patient was received as a sign out from Dr. Govea to Dr. Cheney at 1730 07/13/18 pending labs. Labs showed 134 sodium, trop 0. A 63 y/o male presents to the ED c/o left-sided chest pain that radiates to his left shoulder and left neck. Additionally c/o SOB. The patient noted that he experienced an "electric shock" at his chest earlier this afternoon. EKG showed sinus rhythm with rate of 65 BPM, no STEMI. A CXR revealed no evidence for acute intrathoracic disease. In the ED course, the patient recieved Tylenol, Aspirin, Apresoline, and NTG. During reevaluation, the patient revealed that nothing has changed. Patient care was discussed with hospitalist, Dr. Pinon, who accepts patient for admission. However, the patient stated that he would like to go home AMA. The patient well-understood the risks of leaving AMA, however, he still would like to. Patient will be discharged - AMA with a diagnosis of chest pain. Patient is agreeable with this plan. - Diagnoses Provider Diagnoses: Chest pain - Provider Notifications Discussed Care Of Patient With: Carmen Pinon Time Discussed With Above Provider: 19:32 Instructed by Provider To: Other - ACCEPTS PATIENT FOR ADMISSION. Discharge - Sign-Out/Discharge Documenting (check all that apply): Patient Departure - DISCHARGE - AMA - Discharge Plan Condition: Stable Disposition: AGAINST MEDICAL ADVICE Patient Education Materials: Chest Pain (ED) Referrals: Garrett Rios MD [Primary Care Provider] - Additional Instructions: Rest at home until you are cleared by your primary doctor or business development recruiter. If you are not already taking aspirin, start taking a baby aspirin daily. - Billing Disposition and Condition Condition: STABLE Disposition: Against Medical Advice - Attestation Statements Document Initiated by Scribe: Yes Documenting Scribe: Matty SALAS Provider For Whom Scribe is Documenting (Include Credential): Everardo Cheney M.D. Scribroyce Attestation: ARIC Wiggins Tariq Hussain, scribed for Everardo Cheney M.D. on 07/14/18 at 0214. Fernibroyce Documentation Reviewed: Yes Provider Attestation: The documentation as recorded by the frederick, Matty SALAS accurately reflects the service I personally performed and the decisions made by Everardo sal M.D. Status of Frederick Document: Viewed
[2018-07-13 20:25] VITALS: BP 148/89
--- NOTE | 2018-07-14 04:51 | CONS ---
CC: Garrett Rios MD * CONSULTATION REPORT: DATE OF CONSULT: 07/13/18 - EMERGENCY DEPT TIME OF EVALUATION: 1899. PRIMARY CARE PHYSICIAN: Garrett Rios MD CHIEF COMPLAINT: Chest pain. HISTORY OF PRESENT ILLNESS: This is a 63-year-old male with past medical history of hypertension and hyperlipidemia, who presents to the emergency room with chest pain. The patient states he was in his usual state of health when this afternoon, he was driving, he developed substernal epigastric chest pain. He states it was like an electric shock. They came and went. He had some associated shortness of breath. No diaphoresis, no nausea. Nothing seemed to make it better or worse. He denied any increase in burping, indigestion. He has been coughing for the past few days. When he got to the emergency room, he was given sublingual nitro, hydralazine, full aspirin and his chest pain has resolved and has not yet returned. He has not been taking his medications for his blood pressure because financially he has been unable to afford it. He denied any fevers. No abdominal pain, no diarrhea, no urinary symptoms. He denies any exertional activity. He is normally pretty sedentary. He does not use baby aspirin. Otherwise review of systems negative. In the emergency room , the patient had labs, imaging and was given as mentioned and was referred to the hospitalist service for evaluation for admission. PAST MEDICAL HISTORY: 1. History of hypertension. 2. Hyperlipidemia. 3. Chronic back pain, status post back surgery. 4. He had a history of cardiac catheterization in June 2016 that showed no significant coronary artery disease. MEDICATIONS: The patient is not sure of what medications he takes, but as mentioned he has not been taking them due to financial issues. FAMILY HISTORY: His mother at age 82 from old age. Father in his 70s from the stroke. He states all 4 of his sisters when they were younger secondary to cardiac causes. 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 His healthcare proxy is his friend, Elizabeth. He denies any smoking, illicit drug use. Occasional alcohol use. CODE STATUS: Full code. REVIEW OF SYSTEMS: A 14-point review of systems as mentioned in the HPI, otherwise negative. PHYSICAL EXAM: Vitals: Temp 98.5, pulse rate 69, respiratory rate 16, oxygen saturation 97% on room air, blood pressure 137/99. General: No acute distress , resting comfortably with his friend at the bedside. HEENT: Head normocephalic. Pupils equal and reactive. Oropharynx: Mucous membranes are moist. Neck: Supple. No lymphadenopathy. Cardiac: Regular rate and rhythm. Soft systolic murmur heard throughout. No carotid bruits. Respiratory: Clear to auscultation. No wheezes, rhonchi, or rales. Abdomen: Soft, nontender, nondistended. Extremities: Trace pretibial edema, +1 DPs. Neurologic: Alert and oriented x3. No gross focal neurological deficits. DIAGNOSTIC STUDIES/LAB DATA: White count 6.7, hemoglobin 15.4, hematocrit 47, platelets 219. Sodium 134, potassium 3.9, chloride 101, bicarb 28, BUN 7, creatinine 0.79. Initial troponin is 0, second one is 0.01. EKG shows normal sinus rhythm with nonspecific ST changes different from his prior EKG back in March. Chest x-ray, no evidence for acute intrathoracic disease. ASSESSMENT: This is a 63-year-old male with past medical history of hypertension, hyperlipidemia, who presents to the emergency room with atypical chest pain. Atypical chest pain: The patient has low risk for acute coronary syndrome. He does have a positive family history. He does have EKG changes. I suggested the patient that he get admitted for rule out acute coronary syndrome and have a stress test in the morning. He does not want to come in to the hospital. We discussed leaving against medical advice. I recommended that he starts taking a baby aspirin. He should follow up with his primary care physician to discuss more cost effective prescription medications to allow him to be more compliant and that he should setup to get a stress test done as an outpatient through his primary care physician, which he states he is agreeable to do so. I discussed that he should return if he has any worsening chest pain or shortness of breath. I relayed my recommendation to Dr. Cheney regarding the patient wanting to leaving against medical advice. PATIENT TIME: Greater than 45 minutes spent doing the consultation, more than half time spent in direct patient contact. [id number]/[facility] #: [id number] CADY
== END 2018-07-13 20:25 | disposition left against medical advice (07) ==
LOC: ED 16:21
DX: R07.89 Other chest pain (principal); R06.02 Shortness of breath; R42 Dizziness and giddiness; R60.0 Localized edema; I10 Essential (primary) hypertension; Z82.49 Family history of ischemic heart disease and other diseases of the circulatory system; Z83.3 Family history of diabetes mellitus; Z82.3 Family history of stroke; Z87.891 Personal history of nicotine dependence
CPT/HCPCS: 36415; 71045; 80053; 83605; 84484; 85025; 93005; 99283; A9270-GY

== ENCOUNTER 2018-10-01 18:32 | Emergency (ER) | payer BC, MEDICARE, OTHER ==
[2018-10-01 18:42] VITALS: BP 155/105
[2018-10-01] MEDS ORDERED: Lidocaine 1%* 5 ML VIAL INJ ONE (19:26)
--- NOTE | 2018-10-01 19:27 | CONSULT ---
Consult Consult: I supervised the care of the physician cardiovascular physician assistant and performed a history and physical on the patient. history: Rash in the groin and now has developed a painful sore on the scrotum Physical exam: Erythematous rash in the intertriginous region of the groin with heavy white discharge. Small open abscess on the left inferior scrotum measuring approximately 1 cm across. Small amount of purulent material from it. Does not feel like it goes deep at all. Plan: Simple I&D, oral Diflucan and topical nystatin
--- NOTE | 2018-10-01 19:37 | UC ---
Skin Complaint HPI - HPI Summary HPI Summary: 63 y/o male presents to the urgent care c/o rash in his groin area w/ a painful sore for the past 2 days. Pt reports rash itches a lot. Pain is 6/10 specially with sitting. Pt has applied OTC topical cream and warm compresses w/o any improvement. He saw it was draining a white discharge this morning. Pt denies Hx of MRSA or DM type II. He states Hx of HR+TN and he forgot to take his BP medications today.. Pt denies fever, VEE, dizziness, SOB,chest pain, visual disturbances, abdominal pain, N/V/D. - History of Current Complaint Chief Complaint: UCRash Time Seen by Provider: 10/01/18 19:03 Stated Complaint: RASH AND A LUMP Hx Obtained From: Patient Onset/Duration: Gradual Onset, Lasting Days - 2 days, Still Present, Worse Since - today Skin Exposure Onset/Duration: Days Ago - 2 day Timing: Constant Onset Severity: Moderate Current Severity: Moderate Pain Intensity: 7 - at touch Pain Scale Used: 0-10 Numeric Location: Discrete - in the genital area w/ a rash a painful sore Character: Swelling, Pruritus, Pain, Redness, Raised Aggravating Factor(s): Clothing, Humidity Alleviating Factor(s): OTC Creams/Salves Associated Signs & Symptoms: Positive: Rash - in the genital area w/ a painful sore, Drainage, Tenderness. Negative: Nausea, Vomiting, Numbness, Fever, Chills Related History: Possible Reaction to: Environmental Exposure - Allergy/Home Medications Allergies/Adverse Reactions: Allergies Allergy/AdvReac Type Severity Reaction Status Date / Time No Known Allergies Allergy Verified 10/01/18 18:42 Home Medications: Home Medications Lisinopril/HCTZ 20/25(NF) [Zestoretic 20/25(NF)] 1 tab PO DAILY 10/01/18 [ History Confirmed 10/01/18] Metoprolol Tartrate TAB* [Lopressor TAB*] 50 mg PO DAILY 10/01/18 [History Confirmed 10/01/18] NIFEdipine ER TAB* [Procardia Xl TAB*] 60 mg PO DAILY 10/01/18 [History Confirmed 10/01/18] PMH/Surg Hx/FS Hx/Imm Hx Previously Healthy: Yes Cardiovascular History: Hypertension Other Neurological History: chronic back pain Other History Of: Negative For: Anticoagulant Therapy - Surgical History Surgical History: Yes Surgery Procedure, Year, and Place: 2006, 2014 BACK SURGERY; - Family History Known Family History: Positive: Cardiac Disease - [place] , Hypertension, Diabetes, Other - CVA - Social History Occupation: Employed Full-time Lives: With Family Alcohol Use: Occasionally Substance Use Type: None Smoking Status (MU): Former Smoker Type: Cigarettes Have You Smoked in the Last Year: No When Did the Patient Quit Smoking/Using Tobacco: 2006 Household Exposure Type: Cigarettes - Immunization History Most Recent Influenza Vaccination: NONE Most Recent Tetanus Shot: <10 YRS Most Recent Pneumonia Vaccination: NONE Review of Systems All Other Systems Reviewed And Are Negative: Yes Constitutional: Positive: Negative Skin: Positive: Rash - in the genital area w/ a painful sore, itchiness Eyes: Positive: Negative ENT: Positive: Negative Respiratory: Positive: Negative Cardiovascular: Positive: Negative Gastrointestinal: Positive: Negative Genitourinary: Positive: Negative Motor: Positive: Negative Neurovascular: Positive: Negative Musculoskeletal: Positive: Negative Neurological: Positive: Negative Psychological: Positive: Negative Is Patient Immunocompromised?: No Physical Exam - Summary Physical Exam Summary: Vital Signs Reviewed: Yes General: well developed, well nourished obese male sitting in the examining table w/o any apparent distress Eye Exam: Normal Eyes: Positive: Conjunctiva Clear - PERRLA, EOMI, fundi grossly normal ENT: Positive: Normal ENT inspection, Hearing grossly normal, Pharynx normal, TMs normal Neck: Positive: Supple, Nontender, No Lymphadenopathy Respiratory: Positive: Chest non-tender, Lungs clear, Normal breath sounds, No respiratory distress Cardiovascular: Positive: RRR, No Murmur, Pulses Normal, Brisk Capillary Refill Abdomen Description: Positive: Nontender, No Organomegaly, Soft. Negative: CVA Tenderness (R), CVA Tenderness (L) Bowel Sounds: Positive: Present Musculoskeletal: Positive: Strength Intact, ROM Intact, No Edema Neurological: Positive: Alert, Muscle Tone Normal Psychological Exam: Normal : I was assisted by nurse Cuevas. External genitalia of circumcised male. No inguinal tenderness or lymphadenopathy. No direct or indirect hernia. glande penis normal. Urinary meatus clear without discharge, or erythema. Penile shaft without lesions, swelling,or tenderness. Scrotum Positive: left side of the scrotum wall with a small erythematous pustule that is indurated and fluctuant, tender to palpation, swollen, and warm to touch about 1.0cmx 1.0cm in size, small white discharge observed.. also intertriginous area with erythematous eruptionon both sides LF>RT Testis are normal position, not high riding, nontender. No localized tenderness over upper pole of testis. cremasteric relfex positve. Triage Information Reviewed: Yes Vital Signs: Initial Vital Signs Temp 99.4 F 10/01/18 18:38 Pulse 105 10/01/18 18:38 Resp 20 10/01/18 18:38 BP 155/105 10/01/18 18:38 Pulse Ox 98 10/01/18 18:38 Course/Dx - Course Course Of Treatment: 63 y/o male presents to the urgent care c/o rash in his groin area w/ a painful sore for the past 2 days. Pt reports rash itches a lot. Pain is 6/10 specially with sitting. Pt has applied OTC topical cream and warm compresses w/o any improvement. He saw it was draining a white discharge this morning. Pt denies Hx of MRSA or DM type II. He states Hx of HR+TN and he forgot to take his BP medications today.. Pt denies fever, VEE, dizziness, SOB, chest pain, visual disturbances, abdominal pain, N/V/D. Hx obtained. Pt w/ Scrotum Positive: left side of the scrotum wall with a small erythematous pustule that is indurated and fluctuant, tender to palpation, swollen, and warm to touch about 1.0cmx 1.0cm in size, small white discharge observed.. also intertriginous area with erythematous eruptionon both sides LF>RT on examination. Idiscussed Pt's symptoms with Dr Minesh kohli evaluated Pt and he recommnended I&D and Rx Duflucan and topical fungal cream. I&D of abscess procedure:The procedure was explained and consent obtained. [place] protocol performed w/ Nurse Bruce who also assisted me. The wound was anesthetized with 1mL of Lido 1% with good anesthesia. Sterile drape and prep were done. The fluctuant center was incised with #11 blade scalpel. A small amount of bloody white material was expressed . wound cultures obtained and sent to lab to r/o MRSA. wound was irrigated with normal saline. No packing necessary. Bacitracin topical ointment applied and wound covered with sterile dressing. The patient tolerated the procedure well. Pt Rx Fluconazole PO and ketaconazole topical cream to alleviate symptoms Advised to return to the urgent care or PCP or Urologist Dr Elliott for wound check up if not improvment of symptoms. Pt advised if fever develops and pain increase despite medications to go immediately to the ER for further management. Also strongly advised to be compliant with his BP medications and to f/u w/ his PCP for further managment if it is not controlled. D/C instructions explained. Pt understood and agreed with D/C instructions. Left the clinic ambulating A&OX3. - Differential Diagnoses - Skin Complaint Differential Diagnoses: Abscess, Cellulitis, Contact Dermatitis, Local Allergic Reaction, MRSA, Tinea - Diagnoses Provider Diagnosis: Abscess of scrotal wall, Tinea cruris, Uncontrolled hypertension - Physician Notification/Consults Discussed Patient Care With: Kirk Edge - Dr Santoro recommended I&D of superficial abscess of the scrotum wall left side and Rx Fluconazole PO and fungal topical cream. Discharge - Sign-Out/Discharge Documenting (check all that apply): Patient Departure - D/c home All imaging exams completed and their final reports reviewed: No Studies - Discharge Plan Condition: Stable Disposition: HOME Prescriptions: Aluminum Sulf/Ca Acetate CORDELL* [[place] CORDELL*] 1 applic TOPICAL DAILY #1 box Fluconazole 150 MG TAB* [Diflucan 150 MG TAB*] 150 mg PO ED ONCE #1 tablet Ketoconazole 2 % CREAM (NF) [Nizoral 2% CREAM (NF)] 1 applic TOPICAL DAILY #1 tube Patient Education Materials: Abscess (ED), Skin Yeast Infection (ED) Referrals: Grarett Rios MD [Primary Care Provider] - 2 Days Additional Instructions: 1-Please take Fluconazole PO as directed. Keep wound clean and dry with a sterile dressing. 2- Apply Ketoconazole topical cream as directed to alleviate rash 3- F/u wound check up in 2-3 days with your PCP to make sure is improving. 4- Rinse the area with [place] paks by dissolving 1-3 pkts in warm water and rinse the affected area around scrotum. 5-. Take Tylenol PO q6-8hrs prn for pain or swelling. 6-If you develop fever or redness despite medication aand you develop testicular pain please go to the ER immediately for further management. Otherwise f/u with your PCP or Urologist Dr Elliott in 2-3 days to make sure abscess is improving. 7- Wound culture sent to lab, if any abnormal result you will receive a call from us. 8-Your BP is elevated today. Please take your BP medications and decrease salt in your diet, monitor BP and if it continues to be elevated please f/u with your PCP for further management. If you develop chest pain, dizziness, visual disturbances, SOB, or severe VEE please go immediately to the ER for further management - Billing Disposition and Condition Condition: STABLE Disposition: Home
[2018-10-01] MEDS ORDERED: Fluconazole 150 MG TAB PO ONE (19:58)
[2018-10-01] MEDS ORDERED: Fluconazole 100 MG TAB* TAB PO ONE (20:08)
--- NOTE | 2018-10-03 10:45 | UC ---
- Progress Note Progress Note: Lab called with culture positive for strep pyogenes. Appears pt was placed on antifunal medication. He many continue this, but always sent rx for keflex. Course/Dx - Diagnoses Provider Diagnoses: Abscess of scrotal wall, Tinea cruris, Uncontrolled hypertension Discharge - Sign-Out/Discharge Documenting (check all that apply): Post-Discharge Follow Up All imaging exams completed and their final reports reviewed: No Studies - Discharge Plan Condition: Stable Disposition: HOME Prescriptions: Aluminum Sulf/Ca Acetate CORDELL* [[place] CORDELL*] 1 applic TOPICAL DAILY #1 box Cephalexin CAP* [Keflex CAP*] 500 mg PO BID #14 cap Fluconazole 150 MG TAB* [Diflucan 150 MG TAB*] 150 mg PO ED ONCE #1 tablet Ketoconazole 2 % CREAM (NF) [Nizoral 2% CREAM (NF)] 1 applic TOPICAL DAILY #1 tube Patient Education Materials: Abscess (ED), Skin Yeast Infection (ED) Referrals: Garrett Rios MD [Primary Care Provider] - 2 Days Additional Instructions: 1-Please take Fluconazole PO as directed. Keep wound clean and dry with a sterile dressing. 2- Apply Ketoconazole topical cream as directed to alleviate rash 3- F/u wound check up in 2-3 days with your PCP to make sure is improving. 4- Rinse the area with [place] paks by dissolving 1-3 pkts in warm water and rinse the affected area around scrotum. 5-. Take Tylenol PO q6-8hrs prn for pain or swelling. 6-If you develop fever or redness despite medication aand you develop testicular pain please go to the ER immediately for further management. Otherwise f/u with your PCP or Urologist Dr Elliott in 2-3 days to make sure abscess is improving. 7- Wound culture sent to lab, if any abnormal result you will receive a call from us. 8-Your BP is elevated today. Please take your BP medications and decrease salt in your diet, monitor BP and if it continues to be elevated please f/u with your PCP for further management. If you develop chest pain, dizziness, visual disturbances, SOB, or severe VEE please go immediately to the ER for further management - Billing Disposition and Condition Condition: STABLE Disposition: Home
--- NOTE | 2018-10-04 17:07 | UC ---
- Progress Note Progress Note: Culture with Group A strep and Prevotella Bivia (anarobe). PB is usually resistant to keflex Please call pt. If improving - no change. If not improving or same - stop keflex and start Clindamycin which has coverage for both Course/Dx - Diagnoses Provider Diagnoses: Abscess of scrotal wall, Tinea cruris, Uncontrolled hypertension Discharge - Sign-Out/Discharge Documenting (check all that apply): Post-Discharge Follow Up All imaging exams completed and their final reports reviewed: No Studies - Discharge Plan Condition: Stable Disposition: HOME Prescriptions: Aluminum Sulf/Ca Acetate CORDELL* [[place] CORDELL*] 1 applic TOPICAL DAILY #1 box Cephalexin CAP* [Keflex CAP*] 500 mg PO BID #14 cap Fluconazole 150 MG TAB* [Diflucan 150 MG TAB*] 150 mg PO ED ONCE #1 tablet Ketoconazole 2 % CREAM (NF) [Nizoral 2% CREAM (NF)] 1 applic TOPICAL DAILY #1 tube Patient Education Materials: Abscess (ED), Skin Yeast Infection (ED) Referrals: Garrett Rios MD [Primary Care Provider] - 2 Days Additional Instructions: 1-Please take Fluconazole PO as directed. Keep wound clean and dry with a sterile dressing. 2- Apply Ketoconazole topical cream as directed to alleviate rash 3- F/u wound check up in 2-3 days with your PCP to make sure is improving. 4- Rinse the area with [place] paks by dissolving 1-3 pkts in warm water and rinse the affected area around scrotum. 5-. Take Tylenol PO q6-8hrs prn for pain or swelling. 6-If you develop fever or redness despite medication aand you develop testicular pain please go to the ER immediately for further management. Otherwise f/u with your PCP or Urologist Dr Elliott in 2-3 days to make sure abscess is improving. 7- Wound culture sent to lab, if any abnormal result you will receive a call from us. 8-Your BP is elevated today. Please take your BP medications and decrease salt in your diet, monitor BP and if it continues to be elevated please f/u with your PCP for further management. If you develop chest pain, dizziness, visual disturbances, SOB, or severe VEE please go immediately to the ER for further management - Billing Disposition and Condition Condition: STABLE Disposition: Home - Attestation Statements Provider Attestation: I was available for consult. This patient was seen by the KIMMY. The patient was not presented to, seen by, or examined by me. -Sandrita
== END 2018-10-01 20:35 | disposition home or self-care (01) ==
LOC: UCEAST 18:32
DX: N49.2 Inflammatory disorders of scrotum (principal); B95.0 Streptococcus, group A, as the cause of diseases classified elsewhere; B96.89 Other specified bacterial agents as the cause of diseases classified elsewhere; B35.6 Tinea cruris; I10 Essential (primary) hypertension; Z87.891 Personal history of nicotine dependence
CPT/HCPCS: 10060; 55100; 87070; 87076; 87077; 87185; 87186; 87205; 87640; 87641; 99212; A9270-GY; G0463

== ENCOUNTER 2019-04-30 14:40 | Emergency (ER) | payer MEDICARE, MEDICAID ==
--- OUTSIDE RECORDS SUMMARY | 2019-04-30 15:00 | XMS REPORT | Continuity of Care Document ---
:1955 External Reference #:[id number] Author Name Homer Prabhakar MD (transmitted by agent of provider Destin Bradley) Address [address] [place] [id number] Care Team Providers Name Role Phone Garrett Rios MD - Internal Care Team Information Billing Associate [phone] Medicine Problems Description No Information Available Social History Type Date Description Comments Sex Unknown Tobacco Use Start: Unknown End: Former Cigarette Smoker Unknown Smoking Status Reviewed: 04/21/19 Former Cigarette Smoker ETOH Use Occasionally consumes alcohol Tobacco Use Start: Unknown End: Patient is a former smoker Unknown Recreational Drug Use Denies Drug Use Exercise Type/Frequency Exercises regularly Allergies, Adverse Reactions, Alerts Description No Known Drug Allergies Medications Active Medications SIG Qnty Indications Ordering Provider Date Metoprolol Succinate ER 1 tab once 45tabs I10 Quirino White, 07/21/2017 daily M.D. 50mg Tablets ER 24HR Nitroglycerin 1 under tounge, 30tabs Quirino White, 0.4mg Tablets may repeat 3x M.D. Sub as needed Gabapentin one cap three Unknown 100mg Capsules times daily Ibuprofen 200 mg 2 tablet Unknown po q 4 hours as needed Tramadol HCL 1 tablet po as Unknown 50mg Tablets needed pain Medications Administered in Office Medication SIG Qnty Indications Ordering Provider Date Triamcinolone (Kenalog) Marlena Langston MD 08/21/2015 Injection Immunizations Description No Information Available Vital Signs Date Vital Result Comment 04/21/2019 1:16pm Height 72 inches 6'0" Weight 260.00 lb stated Heart Rate 78 /min BP Systolic 128 mmHg BP Diastolic 76 mmHg Respiratory Rate 14 /min Pain Level 9 BMI (Body Mass Index) 35.3 kg/m2 02/09/2019 10:48am Height 72 inches 6'0" Weight 265.00 lb with shoes Heart Rate 60 /min BP Systolic Sitting 130 mmHg Lue lg cuff BP Diastolic Sitting 90 mmHg Lue lg cuff BP Systolic Standing 132 mmHg Lue lg cuff BP Diastolic Standing 98 mmHg Lue lg cuff Respiratory Rate 16 /min BMI (Body Mass Index) 35.9 kg/m2 Results Description No Information Available Procedures Date Code Description Status 02/09/2019 86561 EKG Tracing & Interpretation Completed Medical Devices Description No Information Available Encounters Type Date Location Provider Dx Diagnosis Office Visit 02/09/2019 [facility] Quirino Newman I10 Essential ( primary) 10:45a Of Heena White M.D. hypertension R94.31 Abnormal electrocardiogram [ECG] [EKG] I42.2 Other hypertrophic cardiomyopathy Assessments Date Code Description Provider 04/21/2019 M25.571 Pain in right ankle and joints of right Homer Prabhakar MD foot 04/21/2019 M19.071 Primary osteoarthritis, right ankle and Homer Prabhakar MD foot 02/09/2019 I10 Essential (primary) hypertension Quirino White M.D. 02/09/2019 R94.31 Abnormal electrocardiogram [ECG] [EKG] Quirino White M.D. 02/09/2019 I42.2 Other hypertrophic cardiomyopathy Quirino White M.D. Plan of Treatment Future Appointment(s):05/23/2019 1:15 pm - Fahad Vazquez MD at [facility]05/18/2019 2:30 pm - ZHANG Goncalves at [facility]04/21/2019 - Homer Prabhakar, MDM25.571 Pain in right ankle and joints of right footNew Xrays:Ankle Right 3+VWS, Ordered: 04/21/19Foot Right 3+ VWS, Ordered: 04/21/19Follow up:Follow up: [address] Murphy or Dr. RobertsonyM19.071 Primary osteoarthritis, right ankle and foot Functional Status Description No Information Available Mental Status Description No Information Available Referrals Description No Information Available
[2019-04-30 15:27] VITALS: BP 156/85
--- NOTE | 2019-04-30 16:18 | UC ---
General HPI - HPI Summary HPI Summary: sudden bodyaches, sore throat, cough with congestion and some sob. onset last pm. + headache and feeling weak. + subjective fever. no cp. no hx copd. - History of Current Complaint Chief Complaint: UCGeneralIllness Stated Complaint: BODY ACHES,ST,VEE,COUGH Time Seen by Provider: 04/30/19 16:07 Hx Obtained From: Patient Pain Intensity: 7 Associated Signs & Symptoms: Negative: Chest Pain, Diarrhea, Nausea, Vomiting - Allergy/Home Medications Allergies/Adverse Reactions: Allergies Allergy/AdvReac Type Severity Reaction Status Date / Time No Known Allergies Allergy Verified 04/30/19 15:28 PMH/Surg Hx/FS Hx/Imm Hx Cardiovascular History: Cardiac Disease, Hypertension Other History Of: Negative For: Anticoagulant Therapy - Surgical History Surgical History: Yes Surgery Procedure, Year, and Place: 2006, 2014 BACK SURGERY; - Family History Known Family History: Positive: None - reviewed & noncontributory, Cardiac Disease - [place] , Hypertension, Diabetes, Other - CVA - Social History Occupation: Employed Full-time Alcohol Use: Rare Substance Use Type: None Smoking Status (MU): Former Smoker Type: Cigarettes Have You Smoked in the Last Year: No When Did the Patient Quit Smoking/Using Tobacco: 2006 Household Exposure Type: Cigarettes - Immunization History Most Recent Influenza Vaccination: NONE Most Recent Tetanus Shot: <10 YRS Most Recent Pneumonia Vaccination: NONE Review of Systems All Other Systems Reviewed And Are Negative: No ENT: Negative: Sinus Congestion Cardiovascular: Negative: Palpitations, Chest Pain Gastrointestinal: Negative: Abdominal Pain, Vomiting, Diarrhea, Nausea Physical Exam Triage Information Reviewed: Yes Appearance: Well-Appearing Vital Signs: Initial Vital Signs Temp 99.9 F 04/30/19 15:22 Pulse 69 04/30/19 15:22 Resp 18 04/30/19 15:22 BP 156/85 04/30/19 15:22 Pulse Ox 98 04/30/19 15:22 Vital Signs Reviewed: Yes Eyes: Positive: Conjunctiva Clear ENT: Positive: Pharyngeal erythema - with mild to moderate swelling., TMs normal , Uvula midline. Negative: Nasal congestion, Nasal drainage, Trismus, Muffled voice, Hoarse voice Neck: Positive: Supple, Nontender, No Lymphadenopathy. Negative: Nuchal Rigidity Respiratory: Positive: No respiratory distress, Decreased breath sounds. Negative: Crackles, Rhonchi, Wheezing Cardiovascular: Positive: RRR, No Murmur Abdomen Description: Positive: Nontender Bowel Sounds: Positive: Present Musculoskeletal: Positive: ROM Intact Neurological: Positive: Alert Psychological: Positive: Age Appropriate Behavior Skin Exam: Normal Diagnostics - Laboratory Lab Results: rapid strep=positive. rapid flu=negative. - Radiology No standard instances Radiology Interpretation Completed By: Radiologist - CXR IMPRESSION: FINDINGS SUGGESTIVE OF COPD, NO EVIDENCE FOR ACUTE DISEASE. Re-Evaluation - Re-Evaluation First Eval Re-Evaluation Time: 16:59 Change: Improved - feeling better and improved aeration. Course/Dx - Differential Dx - Multi-Symptom Differential Diagnoses: Other - non toxic. not hypoxic. negative flu. + strep throat. - Diagnoses Provider Diagnosis: Strep pharyngitis, Bronchitis Discharge ED - Sign-Out/Discharge Documenting (check all that apply): Patient Departure All imaging exams completed and their final reports reviewed: Yes - Discharge Plan Condition: Stable Disposition: HOME Prescriptions: Albuterol HFA INHALER* [Ventolin HFA Inhaler*] 2 puff INH Q6H #1 mdi Amoxicillin PO (*) [Amoxicillin 500 MG CAP*] 500 mg PO Q12H 10 Days #20 cap Dexamethasone TAB* [Decadron TAB*] 8 mg PO DAILY 2 Days #4 tab Patient Education Materials: Strep Throat (ED), Acute Bronchitis (ED) Forms: *Work Release Referrals: Garrett Rios MD [Primary Care Provider] - 5 Days - Billing Disposition and Condition Condition: STABLE Disposition: Home - Attestation Statements Provider Attestation: Per institutional requirements, I have reviewed the chart, however, I was not consulted specifically or made aware of this patient by the midlevel provider. I did not personally evaluate, interact with , or disposition this patient.
[2019-04-30] MEDS ORDERED: Ibuprofen ADULT LIQ* 600 MG/30 ML UDC PO ONE (16:19)
[2019-04-30] MEDS ORDERED: Albuterol 2.5 MG/3 ML NEB.SOL* (0.083%) INH ONE (16:19)
[2019-04-30 16:40] LABS: Influenza A Molecular NEGATIVE (Negative); Influenza B Molecular NEGATIVE (Negative)
[2019-04-30] MEDS ORDERED: Dexamethasone TAB* 4 MG PO ONE (16:47)
[2019-04-30] MEDS ORDERED: Amoxicillin PO (*) 500 MG CAP PO ONE (17:16)
== END 2019-04-30 17:30 | disposition home or self-care (01) ==
LOC: UCCORT 14:40
DX: J02.0 Streptococcal pharyngitis (principal); J40 Bronchitis, not specified as acute or chronic; I10 Essential (primary) hypertension; Z87.891 Personal history of nicotine dependence
CPT/HCPCS: 71046; 87651; 99213; A9270-GY; G0463; J8540

== ENCOUNTER 2019-08-22 13:32 | Emergency (ER) | payer MEDICARE, MEDICAID ==
--- OUTSIDE RECORDS SUMMARY | 2019-08-22 13:48 | XMS REPORT | Summary of Care ---
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 [facility] A/G Ratio 1.2 0.8 - 2.0 ratio [facility] Specimen Blood - Blood specimen (specimen) Performing Organization Address City/State/Zipcode Phone Number [facility] [address] [place] [address] [address] documented in this encounter Visit Diagnoses Diagnosis Laceration of scalp, initial encounter - Primary Abrasion Abrasion or friction burn of other, multiple, and unspecified sites, without mention of infection Closed head injury, initial encounter documented in this encounter Administered Medications Medication Order MAR Action Action Date Dose Rate Site BACITRACIN ZINC 500 UNIT/GM EX OINT 1 dose, Starting Thu06/27/19 at 1455, Until Thu06/27/19 at 1511, Yesenia Phelps: gloriat humbleideMattie Samantha: cabinet override, bacitracin-zinc topical Given 06/27/2019 3:13 PM EST Multiple Sites ( see ointment comments) Topical, X1, 1 dose, First dose (after last modification) on Thu06/27/19 at 1513, Yesenia Phelps: nathalieinet overrMattie craig Samantha: nathalieinet override, HYDROmorphone (DILAUDID) syringe 1 mg Given 06/27/2019 2:47 PM EST 1 mg 1 mg, Intravenous Push, X1, 1 dose, First dose on Thu06/27/19 at 1530 iohexol (OMNIPAQUE) 350 MG/ML injectable Push 06/27/2019 12:40 PM EST 122 mL solution 122 mL 122 mL, Intravenous, NOW, 1 dose, Thu06/27/19 at 1240 metoprolol (LOPRESSOR) tablet 50 mg Given 06/27/2019 2:44 PM EST 50 mg 50 mg, Oral, NOW, 1 dose, Thu06/27/19 at 1430 normal saline bolus 1,000 mL New Bag 06/27/2019 4:31 PM EST 1,000 mL 1,000 mL, Intravenous, BOLUS, 1 dose, Thu06/27/19 at 1720 [id number] Given 06/27/2019 2:17 0.5 mL Deltoid- Right pertussis (ADACEL) injection (adult) PM EST 0.5 mL 0.5 mL, Intramuscular, NOW, 1 dose, Thu06/27/19 at 1225, Before a vaccine is administered, the patient or the parent/authorized desk representative must receive a copy of the most current Vaccine Information Statement (VIS) available for that vaccine. The VIS can be found as a reference link within the medication on the eMAR, within the LINKS section in EPIC, on the EPIC pre-login screen, in the [employer] Forms Library on the Intranet or at the following website: http://www.immunize.org/vis/. Allow the patient or the parent/authorized desk representative time to read the VIS prior to agreeing to receive the vaccine. You must record in the patient's medical record the date the VIS was given, the publication date of the VIS (VIS Date which appears on the bottom of the VIS), medical or surgical instrument maker, lot number and expiration date of the vaccine, site of injection, date/time of administration. , documented in this encounter Insurance Payer Benefit Plan / Subscriber ID Effective Dates Phone Address Type Group [place] xxxxxxxxx Effective for all Auto GENERIC dates documented as of this encounter
--- OUTSIDE RECORDS SUMMARY | 2019-08-22 13:48 | XMS REPORT | Continuity of Care Document ---
:1955 External Reference #:[id number] Author Name Quirino White M.D. (transmitted by agent of provider Hattie Gonzalez) Address [address] 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[employer] [phone] Medicine Problems Description No Information Available Social History Type Date Description Comments Sex Unknown Tobacco Use Start: Unknown End: Former Cigarette Smoker Unknown Smoking Status Reviewed: 07/22/19 Former Cigarette Smoker ETOH Use Occasionally consumes alcohol Tobacco Use Start: Unknown End: Patient is a former smoker Unknown Recreational Drug Use Denies Drug Use Exercise Type/Frequency Exercises regularly Allergies, Adverse Reactions, Alerts Description No Known Drug Allergies Medications Active Medications SIG Qnty Indications Ordering Provider Date Losartan Potassium 1 by mouth 90tabs I10 Quirino White, 07/22/2019 50mg every day M.D. Tablets Metoprolol Succinate ER 1 tab once 45tabs I10 Quirino White, 07/21/2017 daily M.D. 50mg Tablets ER 24HR Nitroglycerin 1 under tounge, 30tabs Quirino White, 0.4mg Tablets may repeat 3x M.D. Sub as needed Gabapentin one cap three Unknown 100mg Capsules times daily Tramadol HCL 1 tablet po as Unknown 50mg Tablets needed pain Medications Administered in Office Medication SIG Qnty Indications Ordering Provider Date Triamcinolone (Kenalog) Marlena Langston MD 08/21/2015 Injection Immunizations Description No Information Available Vital Signs Date Vital Result Comment 07/22/2019 9:40am Height 72 inches 6'0" Weight 280.31 lb with boots Heart Rate 70 /min BP Systolic 140 mmHg Rue lg cuff BP Diastolic 100 mmHg Rue lg cuff BP Systolic Sitting 190 mmHg Lue lg cuff BP Diastolic Sitting 120 mmHg Lue lg cuff BP Systolic Standing 188 mmHg Lue lg cuff BP Diastolic Standing 130 mmHg Lue lg cuff BP Systolic Recheck 122 mmHg RN lying BP Diastolic Recheck 98 mmHg RN lying Respiratory Rate 16 /min O2 % BldC Oximetry 97 % at room air BMI (Body Mass Index) 38.0 kg/m2 Ejection Fraction 65-70% date 06/23/19 ECHO 04/21/2019 1:16pm Height 72 inches 6'0" Weight 260.00 lb stated Heart Rate 78 /min BP Systolic 128 mmHg BP Diastolic 76 mmHg Respiratory Rate 14 /min Pain Level 9 BMI (Body Mass Index) 35.3 kg/m2 Results Description No Information Available Procedures Date Code Description Status 07/22/2019 53427 EKG Tracing & Interpretation Completed 06/23/2019 27376 ECHO Transthoracic, Real-Time 2D With Doppler And Color Completed Flow 06/23/2019 81794 ECHO Transthoracic, Real-Time 2D With Doppler And Color Completed Flow 02/09/2019 86674 EKG Tracing & Interpretation Completed Medical Devices Description No Information Available Encounters Type Date Location Provider Dx Diagnosis Office Visit 04/21/2019 [facility] Homer Vega M25.571 Pain in right 1:00p at Veto Prabhakar MD ankle and joints of right foot M19.071 Primary osteoarthritis, right ankle and foot Office Visit 02/09/2019 10:45a [facility] Quirino Newman 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 07/22/2019 R94.31 Abnormal electrocardiogram [ECG] [EKG] Quirino White M.D. 07/22/2019 R60.0 Edema of lower leg Quirino White M.D. 06/23/2019 I42.2 Other hypertrophic cardiomyopathy Quirino White M.D. 06/23/2019 I42.2 Other hypertrophic cardiomyopathy Traveling ECHO 2 04/21/2019 M25.571 Pain in right ankle and joints of right Homer Prabhakar MD foot 04/21/2019 M19.071 Primary osteoarthritis, right ankle and Homer Prabhakar MD foot 02/09/2019 I10 Essential (primary) hypertension Quirino White M.D. 02/09/2019 R94.31 Abnormal electrocardiogram [ECG] [EKG] Quirino White M.D. 02/09/2019 I42.2 Other hypertrophic cardiomyopathy Quirino White M.D. Plan of Treatment Future Appointment(s):08/15/2019 1:00 pm - Janis G[facility] at [facility]07/22/2019 - Quirino White M.D.I10 Essential (primary) hypertensionNew Medication:Losartan Potassium 50 mg - 1 by mouth every dayNew Orders:Doppler-Venous Lower Extremity Bilateral, Ordered: 07/22/19Follow up:3 weeks with NPR94.31 Abnormal electrocardiogram [ECG] [EKG]R60.0 Edema of lower legNew Orders:Doppler-Venous Lower Extremity Bilateral, Ordered: 07/22/19 Functional Status Description No Information Available Mental Status Description No Information Available Referrals Description No Information Available
[2019-08-22] MEDS ORDERED: Albuterol/Ipratropium NEB.SOL* Albuterol 2.5 MG/Ipratropium 0.5 MG 3 ML INH ONE (14:46)
[2019-08-22] MEDS ORDERED: NS 0.9% 1000 ML** 1,000 ML IV ONE (14:47)
--- NOTE | 2019-08-22 15:04 | ED ---
Complex/Multi-Sys Presentation - HPI Summary HPI Summary: 64-year-old male presents with cough for the past couple days. He admits to generalized weakness. He has been having diarrhea and some nausea. He states the nausea has been causing him to feel like he is gagging. He states that he' s had normal appetite. States he's had some chest tightness when he coughs. He admits to shortness of breath with the cough. He admits to sinus congestion and a headache. He hasn't tried anything for his symptoms. He states he is not a smoker. He states he has no medical conditions. He states the people around him are sick. - History Of Current Complaint Chief Complaint: EDFluSymptoms Time Seen by Provider: 08/22/19 14:40 - Allergies/Home Medications Allergies/Adverse Reactions: Allergies Allergy/AdvReac Type Severity Reaction Status Date / Time No Known Allergies Allergy Verified 08/22/19 13:36 PMH/Surg Hx/FS Hx/Imm Hx Endocrine/Hematology History: Denies: Hx Anticoagulant Therapy, Hx Diabetes, Hx Thyroid Disease, Hx Anemia , Hx Unexplained Bleeding Cardiovascular History: Reports: Hx Angina, Hx Hypertension - ON MEDS Denies: Hx Aneurysm, Hx Angioplasty, Hx Auto Implanted Cardiovert Defib, Hx Cardiac Arrest, Hx Cardiomegaly, Hx Congenital Heart Disease, Hx Congestive Heart Failure, Hx Coronary Artery Disease, Hx Deep Vein Thrombosis, Hx Myocardial Infarction, Hx Pacemaker/ICD, Hx Peripheral Vascular Disease, Hx Rheumatic Fever, Hx Syncope, Hx Valvular Heart Disease, Other Cardiovascular Problems/Disorders Respiratory History: Denies: Hx Asthma, Hx Chronic Obstructive Pulmonary Disease (COPD) GI History: Denies: Hx Ulcer History: Denies: Hx Renal Disease Musculoskeletal History: Reports: Hx Back Problems - back surgeries x2 Denies: Hx Arthritis, Hx Bursitis, Hx Congenital Bone Abnormalities, Hx Fibromyalgia, Hx Gout, Hx Orthopedic Injury, Hx Osteoporosis, Hx Scoliosis, Hx Tendonitis, Other Musculoskeletal History Sensory History: Reports: Hx Contacts or Glasses - glasses Denies: Hx Cataracts, Hx Eye Injury, Hx Eye Prosthesis, Hx Glaucoma, Hx Legally Blind, Hx Macular Degeneration, Hx Vision Problem, Hx Deafness, Hx Hearing Aid, Other Sensory Impairments Opthamlomology History: Reports: Hx Contacts or Glasses - glasses Denies: Hx Cataracts, Hx Eye Injury, Hx Eye Prosthesis, Hx Glaucoma, Hx Legally Blind, Hx Macular Degeneration, Hx Vision Problem, Other Sensory Impairments Neurological History: Reports: Hx Headaches, Other Neuro Impairments/Disorders - PAIN CLINIC PATIENT Denies: Hx Dementia, Hx Developmental Delay, Hx Migraine, Hx Nerve Disease, Hx Seizures, Hx Spinal Cord Injury, Hx Transient Ischemic Attacks (TIA) Psychiatric History: Denies: Hx Panic Disorder - Surgical History Surgery Procedure, Year, and Place: 2006, 2014 BACK SURGERY; Hx Anesthesia Reactions: No - Immunization History Date of Tetanus Vaccine: Unk Date of Influenza Vaccine: 2015 Infectious Disease History: No Infectious Disease History: Denies: Hx Hepatitis, Hx Human Immunodeficiency Virus (HIV), Traveled Outside the [place] in Last 30 Days - Family History Known Family History: Positive: None - reviewed & noncontributory, Cardiac Disease - [place] , Hypertension, Diabetes, Other - CVA - Social History Alcohol Use: Rare Hx Substance Use: No Substance Use Type: Reports: None Hx Tobacco Use: Yes Smoking Status (MU): Former Smoker Type: Cigarettes Have You Smoked in the Last Year: No Review of Systems Positive: Chills, Fatigue Positive: Nasal Discharge Positive: Chest Pain Positive: Shortness Of Breath, Cough Positive: Diarrhea, Nausea. Negative: Abdominal Pain All Other Systems Reviewed And Are Negative: Yes Physical Exam Triage Information Reviewed: Yes Vital Signs On Initial Exam: Initial Vitals Temp Pulse Resp BP Pulse Ox 98.1 F 89 22 167/102 100 08/22/19 13:33 08/22/19 13:33 08/22/19 13:33 08/22/19 13:33 08/22/19 13:33 Vital Signs Reviewed: Yes Appearance: Positive: Well-Appearing Skin: Positive: Warm, Dry Head/Face: Positive: Normal Head/Face Inspection Eyes: Positive: Normal, EOMI, AIDA, Conjunctiva Clear ENT: Positive: Pharynx normal, Nasal congestion, TMs normal Respiratory/Lung Sounds: Positive: Clear to Auscultation, Decreased Breath Sounds Cardiovascular: Positive: Normal, RRR Abdomen Description: Positive: Nontender, Soft Bowel Sounds: Positive: Present Musculoskeletal: Positive: Normal Neurological: Positive: Normal Psychiatric: Positive: Normal Procedures - Sedation Patient Received Moderate/Deep Sedation with Procedure: No Diagnostics - Vital Signs Vital Signs Temp Pulse Resp BP Pulse Ox 08/22/19 13:33 98.1 F 89 22 167/102 100 - Laboratory Result Diagrams: 08/22/19 15:23 08/22/19 15:23 Lab Statement: Any lab studies that have been ordered have been reviewed, and results considered in the medical decision making process. - Radiology chest Radiology Interpretation Completed By: Radiologist Summary of Radiographic Findings: IMPRESSION: HYPERINFLATION, CONSISTENT WITH COPD. NO ACTIVE CARDIOPULMONARY DISEASE. - EKG No standard instances Cardiac Rate: NL EKG Rhythm: Sinus Rhythm EKG Comparison: No Significant Change Summary of EKG Findings: sinus rhythm, t wave abnormalities Re-Evaluation - Re-Evaluation First Eval Re-Evaluation Time: 16:25 Comment: patient is a sleep in room Second Eval Re-Evaluation Time: 16:41 Change: Improved Comment: feeling better after breathing treatment, lungs CTA Complex Multi-Symp Course/Dx Course Of Treatment: 64-year-old male presents with cough for the past couple days. He admits to generalized weakness. He has been having diarrhea and some nausea. He states the nausea has been causing him to feel like he is gagging. He states that he's had normal appetite. States he's had some chest tightness when he coughs. He admits to shortness of breath with the cough. He admits to sinus congestion and a headache. He hasn't tried anything for his symptoms. He states he is not a smoker. He states he has no medical conditions. He states the people around him are sick. On exam sinus congestion noted. Lungs some decreased breath sounds noted. Abdomen soft nontender. ekg sinus rhythm. wbc normal. chest xray shows hyperinflation. bnp normal. flu is negative. electrolytes normal. crp slightly elevated. likely viral syndrome. will treat supporatively with cough medication and inhaler. patient understand and agrees with plan. - Diagnoses Differential Diagnoses/HQI/PQRI: Metabolic Abnormality, Sepsis, Other - pneumonia, flu Provider Diagnoses: Bronchitis Discharge ED - Sign-Out/Discharge Documenting (check all that apply): Patient Departure - Discharge Plan Condition: Good Disposition: HOME Prescriptions: Albuterol HFA INHALER* [Ventolin HFA Inhaler*] 1 puff INH Q6H PRN #1 mdi PRN Reason: Cough Benzonatate CAP* [Tessalon 100 MG CAP*] 100 mg PO TID #21 cap Patient Education Materials: Acute Bronchitis (ED) Referrals: Timothy Jessica MD [Primary Care Provider] - Additional Instructions: Use Tessalon three times a day for cough Use inhaler one puff every 4 hours for cough as needed Use saline in the nose for nasal congestion use tyenlol every 6 hours for pain Follow up with primary care physician in 5 days Return to ED if develop any new or worsening symptoms - Billing Disposition and Condition Condition: GOOD Disposition: Home
[2019-08-22 15:32] LABS: ABS Eosinophils 0.1 10^3/ul (0-0.6); ABS Lymphocytes 1.8 10^3/ul (1.0-4.8); ABS Monocytes 0.8 10^3/ul (0-0.8); ABS Neutrophils 3.3 10^3/ul (1.5-7.7); Eosinophil % 2.2 %; Hematocrit 45 % (42-52); Hemoglobin 14.7 g/dL (14.0-18.0); Lymphocyte % 29.2 %; Mean Corpuscular HGB Conc 33 g/dL (31-36); Mean Corpuscular Hemoglobin 30 pg (27-31); Mean Corpuscular Volume 92 fL (80-94); Mean Platelet Volume 7.5 fL (7.4-10.4); Nucleated Red Blood Cells % 0.1; Platelet Count 211 10^3/uL (150-450); Red Blood Count 4.87 10^6 /uL (4.18-5.48); Red Cell Distribution Width 14 % (10-15)
[2019-08-22 16:23] LABS: Influenza A Molecular NEGATIVE (Negative); Influenza B Molecular NEGATIVE (Negative)
[2019-08-22 16:26] LABS: Albumin/Globulin Ratio 1.5 (1-3); BUN/Creatinine Ratio 9.7 (8-20); C Reactive Protein 18.62 mg/L (<8.01); Calcium 9.1 mg/dL (8.6-10.3); EGFR African American 98.4 (>60); EGFR Non-African American 81.3 (>60); Globulin 2.6 g/dL (2-4); Magnesium 2.1 mg/dL (1.9-2.7); Potassium 3.9 mmol/L (3.5-5.0); Total Bilirubin 0.5 mg/dL (0.2-1.0); Total Protein 6.6 g/dL (6.4-8.9)
[2019-08-22 17:37] VITALS: BP 182/91
== END 2019-08-22 17:35 | disposition home or self-care (01) ==
LOC: ED 13:32
DX: J40 Bronchitis, not specified as acute or chronic (principal); R07.9 Chest pain, unspecified; R06.02 Shortness of breath; R05 Cough; R11.2 Nausea with vomiting, unspecified
CPT/HCPCS: 36415; 71046; 80053; 83735; 83880; 85025; 86140; 93005; 99282; A9270-GY

== ENCOUNTER 2019-10-21 18:26 | Emergency (ER) | payer MEDICARE, MEDICAID ==
[2019-10-21 18:38] VITALS: BP 176/115
[2019-10-21 18:50] LABS: ABS Eosinophils 0.1 10^3/ul (0-0.6); ABS Lymphocytes 1.8 10^3/ul (1.0-4.8); ABS Monocytes 0.6 10^3/ul (0-0.8); ABS Neutrophils 3.2 10^3/ul (1.5-7.7); Eosinophil % 1.6 %; Hematocrit 44 % (42-52); Hemoglobin 14.9 g/dL (14.0-18.0); Lymphocyte % 31.8 %; Mean Corpuscular HGB Conc 34 g/dL (31-36); Mean Corpuscular Hemoglobin 30 pg (27-31); Mean Corpuscular Volume 90 fL (80-94); Mean Platelet Volume 7.5 fL (7.4-10.4); Platelet Count 220 10^3/uL (150-450); Red Blood Count 4.92 10^6 /uL (4.18-5.48); Red Cell Distribution Width 14 % (10-15); White Blood Count 5.7 10^3/uL (3.5-10.8)
--- OUTSIDE RECORDS SUMMARY | 2019-10-21 18:51 | XMS REPORT | Continuity of Care Document ---
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 hypertension R94.31 Abnormal electrocardiogram [ECG] [EKG] R60.0 Localized edema Office Visit 04/21/2019 1:00p [facility] Homer Vega M25.571 Pain in right at Veto Prabhakar MD ankle and joints of right foot M19.071 Primary osteoarthritis, right ankle and foot Assessments Date Code Description Provider 07/22/2019 I10 [...] right ankle and Homer Prabhakar MD foot Plan of Treatment 07/22/2019 - Quirino White M.D.I10 Essential (primary) hypertensionNew Medication:Losartan Potassium 50 mg - 1 by mouth every dayFollow up:3 weeks with NPR94.31 Abnormal electrocardiogram [ECG] [EKG]R60.0 Edema of lower leg Functional Status Description No Information Available Mental Status Description No Information Available Referrals Description No Information Available
[2019-10-21 19:02] LABS: INR 0.97 (0.82-1.09)
[2019-10-21 19:06] LABS: Albumin/Globulin Ratio 1.3 (1-3); BUN/Creatinine Ratio 8.8 (8-20); Calcium 9.2 mg/dL (8.6-10.3); EGFR Non-African American 96.7 (>60); Potassium 3.8 mmol/L (3.5-5.0); Total Bilirubin 0.5 mg/dL (0.2-1.0)
[2019-10-21 19:08] LABS: Troponin I 0.01 ng/mL (<0.03)
== END 2019-10-21 21:57 | disposition left against medical advice (07) ==
LOC: ED 18:26
DX: R07.9 Chest pain, unspecified (principal); Z53.21 Procedure and treatment not carried out due to patient leaving prior to being seen by health care provider
CPT/HCPCS: 36415; 71046; 80053; 84484; 85025; 85610; 93005; 99281

== ENCOUNTER 2023-06-28 03:24 | Inpatient (IN) ==
[2023-06-28 04:16] LABS: ABS Basophils 0.1 10^3/uL (0.0-0.1); ABS Eosinophils 0.1 10^3/uL (0.0-0.5); ABS Lymphocytes 1.3 10^3/uL (1.0-4.8); ABS Monocytes 0.6 10^3/uL (0.0-1.1); ABS Neutrophils 4.9 10^3/uL (1.5-7.6); ABS Nucleated RBC 0.01 10^3/ul; Hematocrit 42.8 % (38-53); Hemoglobin 14.3 g/dL (13.2-16.3); Lymphocyte % 19.4 %; Mean Corpuscular Hemoglobin 30.9 pg (27-33); Mean Corpuscular Hgb Conc 33.5 g/dL (31-36); Mean Corpuscular Volume 92.3 fL (80-97); Mean Platelet Volume 7.6 fL (7.5-11.2); Nucleated Red Blood Cells % 0.1 %/100WBC (0.0-0.8); Platelet Count 232 10^3/uL (150-450); Red Blood Count 4.63 10^6/uL (4.06-5.63); Red Cell Distribution Width 14.1 % (12-17); White Blood Count 6.9 10^3/uL (3.6-10.2)
[2023-06-28 04:27] LABS: INR 0.99 (0.83-1.13)
[2023-06-28 04:42] LABS: Albumin/Globulin Ratio 1.4 (1-3); Calcium 9.2 mg/dL (8.6-10.3); Creatinine, Serum 1.7 mg/dL (0.67-1.17); Globulin 2.8 g/dL (2-4); Potassium 4.2 mmol/L (3.5-5.0); Total Bilirubin 0.8 mg/dL (0.2-1.0); Total Protein 6.8 g/dL (6.4-8.9); eGFR CKD-EPI 42.8 (>60)
[2023-06-28] MEDS ORDERED: Heparin DRIP 25,000 UNITS BAG 25,000 UNITS/500 ML BAG IVPB ONE (06:15)
[2023-06-28] MEDS ORDERED: Heparin DRIP 25,000 UNITS BAG 25,000 UNITS/500 ML BAG ONE (06:15)
[2023-06-28] MEDS: Heparin DRIP 25,000 UNITS BAG 25,000 UNITS/500 ML BAG IV SCH (06:22)
[2023-06-28] MEDS: Heparin 5000 UNITS/ML 1 mL VIAL IV SCH ×2 (06:22→14:06)
[2023-06-28] MEDS ORDERED: Ondansetron 4 mg VIAL 2 MG/ML 2 ml VIAL IV ONE ×2 (06:23)
[2023-06-28 06:45] LABS: Magnesium 2.2 mg/dL (1.9-2.7)
[2023-06-28] MEDS ORDERED: Nitro 2% OINT (Nitroglycerin) 1 INCH/PAK TOPICAL ONE ×3 (07:16→07:34)
[2023-06-28 07:19] LABS: HDL Cholesterol 46.3 mg/dL
[2023-06-28] MEDS ORDERED: Lactated Ringers 1000 ml BAG 1,000 ML IV SCH (08:00)
[2023-06-28 08:47] LABS: High Sensitivity Troponin 3 Hr 3003 pg/mL (<20)
[2023-06-28] MEDS ORDERED: fentaNYL 100 mcg/2 ml 50 MCG/ML VIAL IV SLOW PU ONE ×2 (10:00)
[2023-06-28] MEDS ORDERED: Midazolam 10 mg/10 ml VIAL 1 mg/ml 10 ml VIAL (10 mg) IV SLOW PU ONE (10:00)
[2023-06-28 10:30] LABS: ABS Basophils 0.1 10^3/uL (0.0-0.1); ABS Lymphocytes 1.8 10^3/uL (1.0-4.8); ABS Monocytes 0.7 10^3/uL (0.0-1.1); ABS Neutrophils 4.9 10^3/uL (1.5-7.6); ABS Nucleated RBC 0.01 10^3/ul; Eosinophil % 0.6 %; Hematocrit 43.6 % (38-53); Hemoglobin 14.7 g/dL (13.2-16.3); Lymphocyte % 24.2 %; Mean Corpuscular Hemoglobin 31.1 pg (27-33); Mean Corpuscular Hgb Conc 33.7 g/dL (31-36); Mean Corpuscular Volume 92.1 fL (80-97); Mean Platelet Volume 7.6 fL (7.5-11.2); Nucleated Red Blood Cells % 0.2 %/100WBC (0.0-0.8); Platelet Count 235 10^3/uL (150-450); Red Blood Count 4.73 10^6/uL (4.06-5.63); White Blood Count 7.5 10^3/uL (3.6-10.2)
[2023-06-28 10:42] LABS: Activated Partial Thrombo Time 74.3 seconds (26.0-38.0); INR 1.08 (0.83-1.13)
[2023-06-28 10:52] LABS: Calcium 9.2 mg/dL (8.6-10.3); Creatinine, Serum 1.27 mg/dL (0.67-1.17); Magnesium 2.3 mg/dL (1.9-2.7); Phosphorus 3.5 mg/dL (2.5-5.0); Potassium 4.1 mmol/L (3.5-5.0); eGFR CKD-EPI 60.8 (>60)
[2023-06-28] MEDS ORDERED: Sulfur Hexaflouride MICROSPHR 25 MG VIAL ONE (10:53)
[2023-06-28] MEDS: Ammonium Lactate 12% 1 APPLIC TUBE TOPICAL SCH ×2 (13:14→22:59)
[2023-06-28] MEDS ORDERED: Ondansetron 4 mg VIAL 2 MG/ML 2 ml VIAL IV PRN (13:25)
[2023-06-28] MEDS ORDERED: NS 0.9% 1000 ml BAG 1,000 ML IV SCH (23:55)
[2023-06-29] MEDS: Heparin DRIP 25,000 UNITS BAG 25,000 UNITS/500 ML BAG IV SCH (02:46)
[2023-06-29 05:32] LABS: ABS Basophils 0.1 10^3/uL (0.0-0.1); ABS Eosinophils 0.1 10^3/uL (0.0-0.5); ABS Lymphocytes 2.2 10^3/uL (1.0-4.8); ABS Monocytes 0.7 10^3/uL (0.0-1.1); ABS Neutrophils 3.4 10^3/uL (1.5-7.6); ABS Nucleated RBC 0.01 10^3/ul; Eosinophil % 1.5 %; Hematocrit 44.3 % (38-53); Hemoglobin 14.8 g/dL (13.2-16.3); Mean Corpuscular Hemoglobin 31.1 pg (27-33); Mean Corpuscular Hgb Conc 33.4 g/dL (31-36); Mean Corpuscular Volume 92.9 fL (80-97); Mean Platelet Volume 7.9 fL (7.5-11.2); Nucleated Red Blood Cells % 0.2 %/100WBC (0.0-0.8); Platelet Count 214 10^3/uL (150-450); Red Blood Count 4.76 10^6/uL (4.06-5.63); Red Cell Distribution Width 14.1 % (12-17); White Blood Count 6.4 10^3/uL (3.6-10.2)
[2023-06-29 06:03] LABS: Calcium 9.1 mg/dL (8.6-10.3); Creatinine, Serum 1.07 mg/dL (0.67-1.17); Magnesium 2.1 mg/dL (1.9-2.7); Phosphorus 2.8 mg/dL (2.5-5.0); Potassium 4.2 mmol/L (3.5-5.0); eGFR CKD-EPI 74.7 (>60)
[2023-06-29] MEDS: Ammonium Lactate 12% 1 APPLIC TUBE TOPICAL SCH ×2 (09:00→20:43)
[2023-06-29] MEDS ORDERED: Heparin 1,000 UNIT/ML 10 ml (10,000 UNITS) CATHLAB/DIALYSIS ONE (09:01)
[2023-06-29] MEDS ORDERED: Heparin 1,000 UNIT/ML 10 ml (10,000 UNITS) CATHLAB/DIALYSIS IV ONE (09:01)
[2023-06-29] MEDS ORDERED: VERAPAMIL 2.5 MG/ML 2 ML VIAL ** 5 mg/2 ml IV PUSH ONE (09:01)
[2023-06-29] MEDS ORDERED: VERAPAMIL 2.5 MG/ML 2 ML VIAL ** 5 mg/2 ml ONE (09:01)
[2023-06-29] MEDS ORDERED: Heparin 2 UNITS/ML 1000 mls 2,000 ML IV ONE ×2 (09:02)
[2023-06-29] MEDS ORDERED: Lidocaine 1% MPF 5 ML VIAL ONE (09:02)
[2023-06-29] MEDS ORDERED: Lidocaine 1% MPF 5 ML VIAL INJ ONE (09:02)
[2023-06-29] MEDS ORDERED: Iohexol 350 (CONTRAST) 200 ML MDV IV ONE (09:02)
[2023-06-29] MEDS ORDERED: fentaNYL 100 mcg/2 ml 50 MCG/ML VIAL IV ONE (09:12)
[2023-06-29] MEDS ORDERED: Midazolam 5 mg/5 ml VIAL 1 mg/ml 5 ml VIAL (5 mg) ONE (09:12)
[2023-06-29] MEDS ORDERED: fentaNYL 100 mcg/2 ml 50 MCG/ML VIAL ONE (09:12)
[2023-06-29] MEDS ORDERED: Midazolam 5 mg/5 ml VIAL 1 mg/ml 5 ml VIAL (5 mg) IV SLOW PU ONE (09:12)
[2023-06-30] MEDS ORDERED: Senna TAB 8.6 mg TAB PO PRN (00:07)
[2023-06-30] MEDS ORDERED: Polyethylene Glycol 3350 17 GM PACKET PO PRN (00:07)
[2023-06-30 02:58] LABS: ABS Basophils 0.1 10^3/uL (0.0-0.1); ABS Eosinophils 0.1 10^3/uL (0.0-0.5); ABS Lymphocytes 1.8 10^3/uL (1.0-4.8); ABS Monocytes 0.7 10^3/uL (0.0-1.1); ABS Neutrophils 4.6 10^3/uL (1.5-7.6); ABS Nucleated RBC 0.01 10^3/ul; Eosinophil % 1.3 %; Hematocrit 45.3 % (38-53); Hemoglobin 15.3 g/dL (13.2-16.3); Lymphocyte % 24.7 %; Mean Corpuscular Hemoglobin 31.1 pg (27-33); Mean Corpuscular Hgb Conc 33.7 g/dL (31-36); Mean Corpuscular Volume 92.4 fL (80-97); Mean Platelet Volume 7.5 fL (7.5-11.2); Nucleated Red Blood Cells % 0.1 %/100WBC (0.0-0.8); Platelet Count 216 10^3/uL (150-450); Red Blood Count 4.91 10^6/uL (4.06-5.63); Red Cell Distribution Width 14.1 % (12-17); White Blood Count 7.3 10^3/uL (3.6-10.2)
[2023-06-30 03:23] LABS: Calcium 9.3 mg/dL (8.6-10.3); Creatinine, Serum 1.03 mg/dL (0.67-1.17); Magnesium 2.1 mg/dL (1.9-2.7); Potassium 4.2 mmol/L (3.5-5.0); eGFR CKD-EPI 78.1 (>60)
[2023-06-30] MEDS: Ammonium Lactate 12% 1 APPLIC TUBE TOPICAL SCH (10:15)
[2023-06-30 14:27] VITALS: BP 138/80
== END 2023-06-30 17:55 | disposition home health service (06) | DRG 281 ==
LOC: ED 03:24 → SUATTDRO 06:07 → EDHOLD 06:07 → MEDTELE 15:56
PROVIDERS: ADMIT Internal Medicine; ATTEND Internal Medicine

== ENCOUNTER 2024-08-05 17:54 | Observation (INO) ==
[2024-08-05] MEDS: hydrALAZINE 20 mg/ml 1 ML Vial IV IV SLOW PU ONE (19:10)
[2024-08-05] MEDS: Ondansetron 4 mg VIAL 2 MG/ML 2 ml VIAL IV ONE (19:44)
[2024-08-05 19:55] LABS: ABS Eosinophils 0.1 10^3/uL (0.0-0.5); ABS Lymphocytes 1.7 10^3/uL (1.0-4.8); ABS Monocytes 0.7 10^3/uL (0.0-1.1); ABS Neutrophils 4.6 10^3/uL (1.5-7.6); Eosinophil % 1.5 %; Giant Platelets Present; Hematocrit 45.9 % (38-53); Hemoglobin 15.5 g/dL (13.2-16.3); Mean Corpuscular Hemoglobin 31.1 pg (27-33); Mean Corpuscular Hgb Conc 33.8 g/dL (31-36); Mean Corpuscular Volume 92.1 fL (80-97); Mean Platelet Volume 7.9 fL (7.5-11.2); Platelet Count 183 10^3/uL (150-450); Red Blood Count 4.98 10^6/uL (4.06-5.63); Red Cell Distribution Width 14.2 % (12-17); White Blood Count 7.1 10^3/uL (3.6-10.2)
[2024-08-05 20:18] LABS: Calcium 9.6 mg/dL (8.6-10.3); Creatinine, Serum 0.95 mg/dL (0.67-1.17); Potassium 3.9 mmol/L (3.5-5.0); eGFR CKD-EPI 85.6 (>60)
[2024-08-05] MEDS ORDERED: Sulfur Hexaflouride MICROSPHR 25 MG VIAL IV PRN (22:56)
[2024-08-06 00:06] LABS: HDL Cholesterol 45.8 mg/dL
[2024-08-06] MEDS: Iohexol 350 (CONTRAST) 500 ML MDV IV ONE (00:52)
[2024-08-06] MEDS ORDERED: GABAPENTIN 300 MG PO SCH (01:30)
[2024-08-06] MEDS ORDERED: Enoxaparin 40 MG/0.4 ML SYR SUBCUT SCH (07:00)
[2024-08-06] MEDS: Lisinopril/HCTZ 20/25 TAB (NF) PO SCH (07:11)
[2024-08-06] MEDS: Enoxaparin 40 MG/0.4 ML SYR SUBCUT SCH (08:50)
[2024-08-06] MEDS: Magnesium Sulfate IV 1GM/100ML 1 GM/100 ML BAG IV ONE (13:17)
[2024-08-06] MEDS: NS 0.9% 1000 ml BAG 500 ML IV SCH (16:51)
[2024-08-06] MEDS: Metoclopramide 5 MG/ML VIAL (10 mg) IV ONE (17:04)
[2024-08-06] MEDS: ASA-APAP-CAFFEINE ES (NF) TAB PO ONE (18:40)
[2024-08-07 07:31] LABS: Anion Gap 8 mmol/L (2-16); Blood Urea Nitrogen 8 mg/dL (6-24); CO2 Carbon Dioxide 27 mmol/L (22-32); Calcium 8.7 mg/dL (8.6-10.3); Chloride 102 mmol/L (101-111); Creatinine, Serum 0.81 mg/dL (0.67-1.17); Glucose 126 mg/dL (70-100); Sodium 137 mmol/L (135-145); eGFR CKD-EPI 94.3 (>60)
[2024-08-07 10:22] VITALS: BP 168/103
== END 2024-08-07 12:28 | disposition home or self-care (01) ==
LOC: EDHOLD 17:54 → ED 17:54 → SUATTDRO 22:56 → MEDTELE 08-06 00:22
PROVIDERS: ADMIT Hospitalist; ATTEND Student in an Organized Health Care Education/Training Program